=== PATIENT | female | born 1970 | race Caucasian/White ===

== ENCOUNTER → 2019-04-20 | Outpatient (CLI) | payer MEDICARE, MEDICAID, SELFPAY | PROVIDERS: Family Provider Internal Medicine; Visit Provider Internal Medicine Hematology & Oncology | DX: D75.1 Secondary polycythemia (principal) | CPT/HCPCS: 85025; J7050 ==

== ENCOUNTER → 2019-04-20 | Outpatient (CLI) | payer SELFPAY | PROVIDERS: Family Provider Internal Medicine; Visit Provider Internal Medicine | DX: E06.9 Thyroiditis, unspecified (principal); E04.2 Nontoxic multinodular goiter | CPT/HCPCS: 76536 ==

== ENCOUNTER 2019-05-04 12:02 | Outpatient (CLI) | payer MEDICARE, MEDICAID, SELFPAY ==
[2019-05-04 12:44] LABS: Basophils # 0.1 10^3/uL (0.0-0.1); Basophils % 0.5 %; Eosinophils # 0.6 10^3/uL (0.0-0.8); Eosinophils % 5.9 %; Hematocrit 43.6 % (37.0-47.0); Hemoglobin 13.6 g/dL (11.5-15.3); Lymphocytes % 32.3 %; Mean Corpuscular HGB Conc 31.2 g/dL (30.0-36.0); Mean Corpuscular Hemoglobin 26.5 pg (28.0-34.0); Mean Platelet Volume 9.8 fL (7.4-10.4); Monocytes # 0.6 10^3/uL (0.2-0.9); Monocytes % 6.7 %; Neutrophils # 5.1 10^3/uL (1.8-7.7); Neutrophils % 54.3 %; Nucleated Red Blood Cells % 0 %; Platelet Count 322 10^3/cmm (130-400); Red Blood Count 5.13 10^6/uL (4.1-5.3); Red Cell Distribution Width 12.7 % (12.1-15.1); White Blood Count 9.3 10^3/uL (4.0-10.0)
--- NOTE | 2019-05-05 16:02 | ONC FU_ITS ---
Dr. Wooten follow up note Patient: Emmanuelle Stanford Unit #: [id number]: 1970 Dicatated By: Colton Wooten M.D.Date of Visit:May 04, 2019 Onc Med Follow-up/Prog Note History of Present Illness: Mrs. Emmanuelle Stanford, 48-year-old female with history of emphysema diagnosed 5 years ago, sleep apnea on CPAP machine, heavy smoker about a pack a day for the last 30 years referred to hematology clinic for evaluation of elevated hemoglobin/hematocrit. As per patient this is a first-time she was told about high red blood cells, her labs from 11/22/2016 showed white blood count 6.6 hemoglobin 17.1 crit 48.1 normal being 34-46.6 then from 04/05/2017 white blood count 9.6 hemoglobin 16.7 hematocrit 47.1 platelets 262,000. Her repeat labs on 04/26/2017 showed white blood count 8 hemoglobin 18.2 crit 46.1 platelets 415,000 with a normal differential. recently dx with coronary artery disease underwent stent placement Now on Plavix and aspirin. Patient said she has cut done her smoking significantly and also using CPAP machine diligently. spirometry done on09/24/2018 was a normal study Now has a new CPAP machine any using it regularly as per patient but still smoke about pack a day.Tolerating phlebotomy well. came for follow-up, Denies any specific complaints, no nausea vomiting, no fever or chills, no blurry or double vision, tolerating phlebotomies well except with generalized weakness and fatigue for day or 2. Still smoking but has cut done some. And using CPAP machine on a regular basis Medications: Acetaminophen 3 Tablet (of 500 mg) Capsule Oral t.i.d. PRN, Aspirin 1 (325 mg) Tablet Oral daily, Clopidogrel Bisulfate 1 Tablet (of 75 mg) Oral daily, Cyclobenzaprine HCl 1 Tablet (of 10 mg) Oral t.i.d., Enalapril Maleate 1 Tablet (of 5 mg) Oral daily, HumaLOG 15 Units (of 100 Units/mL) Subcutaneous t.i.d. PRN, Ibuprofen 3 - 4 Capsule (of 200 mg) Oral PRN, Isosorbide Mononitrate ER 1 Tablet (of 30 mg) Tablet SR 24 HR Oral daily, Jardiance 1 Tablet (of 10 mg) Oral daily, Lipitor 1 Tablet (of 20 mg) Oral daily, Lyrica 1 Capsule (of 100 mg) Oral t.i.d. PRN, Nitroglycerin 1 Tablet (of 0.4 mg) Tablet, sublingual Sublingual PRN, OxyCODONE HCl 1 Tablet (of 10 mg) Oral t.i.d., Tresiba FlexTouch 1 (56 Units) Subcutaneous at bedtime, Victoza 1 (1.8 mg) Subcutaneous daily Allergies: adhesive tape, Morphine Sulfate, and skin glue. Review of Systems: Constitutional - Energy level is slightly better. Appetite is fair and weight is stable. No fever, hot flashes, or night sweats, ENMT - No sinus congestion/drainage. No mouth sores. No sore throat. No difficulty swallowing, Hematologic/Lymphatic - No abnormal bruising. Patient notices bleeding in gums occasionally, Respiratory - No shortness of breath. Chronic cough. No pleuritic pain or hemoptysis, Cardiovascular - No angina pain. No palpitations, Gastrointestinal - Frequent nausea, no vomiting. Frequent heartburn. No acid reflux. Occasional diarrhea and constipation. No blood in the stool or black stools, Genitourinary (F) - No dysuria or hematuria. No urinary frequency. No urgency or incontinence, Musculoskeletal - Patient has chronic joint and bone pain, Neurologic - No headache or dizziness. Patient states she has diabetic neuropathy and experiences numbness/paresthesias in hands and feet. No other focal neurologic symptoms, Psychiatric - No anxiety or depression. Pt reports that she is sleeping better now. Vital Signs: Performed on May 04, 2019 14:39 Height - 64.00 in Weight - 212 lbs (HIGH) BSA - 2.01 sq.m BMI - 36.39 (HIGH) Temperature - 98.2 F (LOW) Pulse - 100 /min Respiration - 20 /min BP - 119/59 mm(hg) O2 Sat - 96 % Pain - 4 Performance Status: 1 - No physically strenuous activity, but ambulatory and able to carry out light or sedentary work (e.g. office work, light house work). (ECOG) Physical Examination: ENMT - No oral exudates, ulcers, masses, thrush or mucositis. Oropharynx clear. Tongue normal, Respiratory - Lungs are clear to auscultation without rhonchi or wheezing, Cardiovascular - Regular rate and rhythm of heart, Abdomen - Non-tender, non-distended, Good bowel sounds. No guarding or rebound tenderness. No pulsatile masses, Extremities - no edema. Lab/Imaging: Test performed on May 04, 2019 12:17 WBC 9.3 10 3/uL RBC 5.13 10^12/L HGB 13.6 g/dL HCT 43.6 % MCV 85.0 fL MCH 26.5 pg MCHC 31.2 g/dL Platelet Count 322 10^9/L RDW 12.7 % MPV 9.8 fL Lymphocytes 3.0 10^9/L Neutrophils 0.1 10 3/uL Monocytes 0.6 10^9/L Eosinophils 0.6 10^9/L Basophils 0.1 10^9/L Neutrophil % 5.9 % Manual Lymphocytes 32.3 % Manual Monocytes 6.7 % Manual Eosinophils 5.9 % Manual Basophils 0.5 % Blasts 0.0 % Test performed on Apr 20, 2019 12:51 Lymphocyte % 30.7 % Monocyte % 5.0 % Eosinophil % 1.2 % Basophils % 0.5 % Impression: Polycythemia of uncertain etiology secondary versus primary most likely secondary to hypoxia due to chronic smoking/emphysema/sleep apnea, although patient use CPAP machine so it could be noncompliance or inappropriate CPAP setting. Or she will have primary polycythemia vera but less likely. JAK2 mutation checked on 05/08/2018 was not detected and erythropoietin level was 4 CALR mutation and MPL mutation was checked on 07/14/2018 was not detected Chronic/heavy smoker 1 pack per day for the last 30 years Emphysema Sleep apnea on CPAP machine Pulse oximetry done on 05/01/2017 showed cumulative minute of PO2 less than 88% were 3.2 minutes and she did not qualify for Medicaid coverage as a requirement is more than 5 minutes but she did have 37 events of desaturation and about 6 events per hour Left-sided neck/shoulder pain MRI scan C-spine done on 07/15/2017 showed posterior disc bulging at C4/C5 and especially C5 and 6 associated with mild anterior surface spinal cord impingement. Because of progressive symptom including headaches and heaviness and progressive secondary polycythemia e.g. for hemoglobin 17.5 g and hematocrit 50, she was started on phlebotomy with 500 mL on 01/01/2019 and goal is to get hematocrit close to 45 Plan: Discussed with patient regarding her labs white blood count 9.3 hemoglobin 13.6 crit 43.6 platelets 322,000 Clinically, patient is doing well, now tolerating phlebotomies well her follow-up lab shows hematocrit below 45, this point we'll hold her phlebotomies and she will return to clinic in one month with CBC and patient was encouraged to use her new CPAP machine on a regular basis and also quit smoking and was offered any assistance she may need. Signed By: Colton Wooten M.D. <<Signature on File>>
== END 2019-05-04 12:03 | disposition home or self-care (01) ==
LOC: ONCMED 12:07
PROVIDERS: Family Provider Internal Medicine; PCP Internal Medicine; Visit Provider Internal Medicine Hematology & Oncology
DX: D75.1 Secondary polycythemia (principal); J43.9 Emphysema, unspecified; G47.33 Obstructive sleep apnea (adult) (pediatric); F17.210 Nicotine dependence, cigarettes, uncomplicated; I25.10 Atherosclerotic heart disease of native coronary artery without angina pectoris; M50.221 Other cervical disc displacement at C4-C5 level; Z79.02 Long term (current) use of antithrombotics/antiplatelets; Z79.82 Long term (current) use of aspirin; Z79.891 Long term (current) use of opiate analgesic; Z95.5 Presence of coronary angioplasty implant and graft
CPT/HCPCS: 36415; 85025; G0463

== ENCOUNTER 2019-06-04 13:21 | Outpatient (CLI) | payer MEDICARE, MEDICAID, SELFPAY ==
[2019-06-04 14:07] LABS: Basophils # 0.1 10^3/uL (0.0-0.1); Basophils % 0.6 %; Eosinophils % 0.3 %; Hematocrit 47.7 % (37.0-47.0); Lymphocytes # 2.8 10^3/uL (0.8-4.8); Mean Corpuscular HGB Conc 31.4 g/dL (30.0-36.0); Mean Corpuscular Hemoglobin 26.8 pg (28.0-34.0); Mean Corpuscular Volume 85.3 fL (81-99); Mean Platelet Volume 9.9 fL (7.4-10.4); Monocytes # 0.6 10^3/uL (0.2-0.9); Neutrophils # 6.2 10^3/uL (1.8-7.7); Neutrophils % 63.8 %; Nucleated Red Blood Cells % 0 %; Platelet Count 304 10^3/cmm (130-400); Red Blood Count 5.59 10^6/uL (4.1-5.3); Red Cell Distribution Width 14.3 % (12.1-15.1); White Blood Count 9.7 10^3/uL (4.0-10.0)
--- NOTE | 2019-06-04 15:23 | ONC FU_ITS ---
Dr. Wooten follow up note Patient: Emmanuelle Stanford Unit #: [id number]: [id number] Dicatated By: Colton Wooten M.D.Date of Visit:Jun 04, 2019 Onc Med Follow-up/Prog Note History of Present Illness: Mrs. Emmanuelle Stanford, 48-year-old female with history of emphysema diagnosed 5 years ago, sleep apnea on CPAP machine, heavy smoker about a pack a day for the last 30 years referred to hematology clinic for evaluation of elevated hemoglobin/hematocrit. As per patient this is a first-time she was told about high red blood cells, her labs from 11/22/2016 showed white blood count 6.6 hemoglobin 17.1 crit 48.1 normal being 34-46.6 then from 04/05/2017 white blood count 9.6 hemoglobin 16.7 hematocrit 47.1 platelets 262,000. Her repeat labs on 04/26/2017 showed white blood count 8 hemoglobin 18.2 crit 46.1 platelets 415,000 with a normal differential. recently dx with coronary artery disease underwent stent placement Now on Plavix and aspirin. Patient said she has cut done her smoking significantly and also using CPAP machine diligently. spirometry done on09/24/2018 was a normal study Now has a new CPAP machine any using it regularly as per patient but still smoke about pack a day.Tolerating phlebotomy well.Patient quit smoking on 05/05/2019. Came for follow-up, denies any specific complaints, no fever or chills, no nausea or vomiting, no headaches, her cough is also improving since she quit smoking month ago. Tolerating phlebotomies on as-needed basis well. Medications: Acetaminophen 3 Tablet (of 500 mg) Capsule Oral t.i.d. PRN, Aspirin 1 (325 mg) Tablet Oral daily, Clopidogrel Bisulfate 1 Tablet (of 75 mg) Oral daily, Cyclobenzaprine HCl 1 Tablet (of 10 mg) Oral t.i.d., Enalapril Maleate 1 Tablet (of 5 mg) Oral daily, HumaLOG 15 Units (of 100 Units/mL) Subcutaneous t.i.d. PRN, Ibuprofen 3 - 4 Capsule (of 200 mg) Oral PRN, Isosorbide Mononitrate ER 1 Tablet (of 30 mg) Tablet SR 24 HR Oral daily, Jardiance 1 Tablet (of 10 mg) Oral daily, Lipitor 1 Tablet (of 20 mg) Oral daily, Lyrica 1 Capsule (of 100 mg) Oral t.i.d. PRN, Nitroglycerin 1 Tablet (of 0.4 mg) Tablet, sublingual Sublingual PRN, OxyCODONE HCl 1 Tablet (of 10 mg) Oral t.i.d., Tresiba FlexTouch 1 (56 Units) Subcutaneous at bedtime, Victoza 1 (1.8 mg) Subcutaneous daily Allergies: adhesive tape, Morphine Sulfate, and skin glue. Review of Systems: Constitutional - Energy level is slightly better. Appetite is fair and weight is stable. No fever, hot flashes, or night sweats, ENMT - No sinus congestion/drainage. No mouth sores. No sore throat. No difficulty swallowing, Hematologic/Lymphatic - No abnormal bruising. Patient notices bleeding in gums occasionally, Respiratory - No shortness of breath. Chronic cough. No pleuritic pain or hemoptysis, Cardiovascular - No angina pain. No palpitations, Gastrointestinal - Frequent nausea, no vomiting. Frequent heartburn. No acid reflux. Occasional diarrhea and constipation. No blood in the stool or black stools, Genitourinary (F) - No dysuria or hematuria. No urinary frequency. No urgency or incontinence, Musculoskeletal - Patient has chronic joint and bone pain, Neurologic - No headache or dizziness. Patient states she has diabetic neuropathy and experiences numbness/paresthesias in hands and feet. No other focal neurologic symptoms, Psychiatric - No anxiety or depression. Pt reports that she is sleeping better now. Vital Signs: Performed on Jun 04, 2019 14:58 Height - 64.00 in Weight - 211.2 lbs (LOW) BSA - 2.00 sq.m BMI - 36.25 (HIGH) Temperature - 98.7 F Pulse - 111 /min (HIGH) Respiration - 24 /min BP - 121/83 mm(hg) O2 Sat - 96 % Pain - 4 Performance Status: 0 - Fully active, able to carry on all predisease activities without restrictions. (ECOG) Physical Examination: ENMT - No oral exudates, ulcers, masses, thrush or mucositis. Oropharynx clear. Tongue normal, Respiratory - Lungs are clear to auscultation without rhonchi or wheezing, Cardiovascular - Regular rate and rhythm of heart, Abdomen - Non-tender, non-distended, no masses, Good bowel sounds. No guarding or rebound tenderness. No pulsatile masses, Extremities - no edema. Lab/Imaging: Test performed on Jun 04, 2019 13:40 WBC 9.7 10 3/uL RBC 5.59 10 6/uL HGB 15.0 g/dL HCT 47.7 % MCV 85.3 fL MCH 26.8 pg MCHC 31.4 g/dL RDW 14.3 % Platelet Count 304 10 3/cmm MPV 9.9 fL Neutrophils 6.2 10 3/uL Lymphocytes 2.8 10 3/uL Monocytes 0.6 10 3/uL Eosinophils 0.0 10 3/uL Basophils 0.1 10 3/uL Neutrophil % 63.8 % Lymphocyte % 29.0 % Monocyte % 6.0 % Eosinophil % 0.3 % Basophils % 0.6 % Test performed on May 04, 2019 12:17 Manual Lymphocytes 32.3 % Manual Monocytes 6.7 % Manual Eosinophils 5.9 % Manual Basophils 0.5 % Blasts 0.0 % Impression: Polycythemia of uncertain etiology secondary versus primary most likely secondary to hypoxia due to chronic smoking/emphysema/sleep apnea, although patient use CPAP machine so it could be noncompliance or inappropriate CPAP setting. Or she will have primary polycythemia vera but less likely. JAK2 mutation checked on 05/08/2018 was not detected and erythropoietin level was 4 CALR mutation and MPL mutation was checked on 07/14/2018 was not detected Chronic/heavy smoker 1 pack per day for the last 30 years Emphysema Sleep apnea on CPAP machine Pulse oximetry done on 05/01/2017 showed cumulative minute of PO2 less than 88% were 3.2 minutes and she did not qualify for Medicaid coverage as a requirement is more than 5 minutes but she did have 37 events of desaturation and about 6 events per hour Left-sided neck/shoulder pain MRI scan C-spine done on 07/15/2017 showed posterior disc bulging at C4/C5 and especially C5 and 6 associated with mild anterior surface spinal cord impingement. Because of progressive symptom including headaches and heaviness and progressive secondary polycythemia e.g. for hemoglobin 17.5 g and hematocrit 50, she was started on phlebotomy with 500 mL on 01/01/2019 and goal is to get hematocrit close to 45 Plan: Discussed with patient regarding her labs white blood count 9.7 hemoglobin 15 crit 47.7, platelets 304,000 Clinically, patient doing well with no new signs symptoms are follow-up lab shows hematocrit gone up to 47.7 compared to 42.6 on 05/04/2019. Patient said she quit smoking month ago and feeling much better. She was encouraged and congratulated. And was offered any assistance she may need. At this point we'll proceed with phlebotomy with a 500 mL blood drawn and 250 mL normal saline continue biweekly to keep hematocrit equal to or less than 45. Return to clinic in one month with CBC. Signed By: Colton Wooten M.D. <<Signature on File>>
== END 2019-06-04 13:22 | disposition home or self-care (01) ==
LOC: ONCMED 13:24
PROVIDERS: Family Provider Internal Medicine; PCP Internal Medicine; Visit Provider Internal Medicine Hematology & Oncology
DX: D75.1 Secondary polycythemia (principal); J43.9 Emphysema, unspecified; G47.33 Obstructive sleep apnea (adult) (pediatric); I25.10 Atherosclerotic heart disease of native coronary artery without angina pectoris; M25.512 Pain in left shoulder; M50.221 Other cervical disc displacement at C4-C5 level; Z95.5 Presence of coronary angioplasty implant and graft; Z79.02 Long term (current) use of antithrombotics/antiplatelets; Z79.82 Long term (current) use of aspirin; Z87.891 Personal history of nicotine dependence; Z79.891 Long term (current) use of opiate analgesic
CPT/HCPCS: 85025; 99195; G0463

== ENCOUNTER → 2019-06-18 09:31 | Outpatient (BNVA) | payer MEDICARE, MEDICAID, SELFPAY | PROVIDERS: Family Provider Internal Medicine; PCP Internal Medicine; Visit Provider Nurse Practitioner | DX: G89.29 Other chronic pain (principal); M54.2 Cervicalgia; M54.9 Dorsalgia, unspecified; Z79.891 Long term (current) use of opiate analgesic | CPT/HCPCS: 99213; 99214 ==

== ENCOUNTER 2019-06-18 12:57 | Outpatient (CLI) | payer MEDICARE, MEDICAID, SELFPAY ==
[2019-06-18 13:27] LABS: Basophils # 0.1 10^3/uL (0.0-0.1); Basophils % 0.7 %; Eosinophils # 0.6 10^3/uL (0.0-0.8); Eosinophils % 5.7 %; Hematocrit 44.4 % (37.0-47.0); Hemoglobin 13.8 g/dL (11.5-15.3); Lymphocytes # 2.6 10^3/uL (0.8-4.8); Lymphocytes % 25.6 %; Mean Corpuscular HGB Conc 31.1 g/dL (30.0-36.0); Mean Corpuscular Hemoglobin 25.5 pg (28.0-34.0); Mean Corpuscular Volume 82.1 fL (81-99); Mean Platelet Volume 9.6 fL (7.4-10.4); Monocytes # 0.6 10^3/uL (0.2-0.9); Monocytes % 5.8 %; Neutrophils # 6.2 10^3/uL (1.8-7.7); Neutrophils % 61.8 %; Nucleated Red Blood Cells % 0 %; Platelet Count 298 10^3/cmm (130-400); Red Blood Count 5.41 10^6/uL (4.1-5.3); Red Cell Distribution Width 14.7 % (12.1-15.1)
== END 2019-06-18 12:58 | disposition home or self-care (01) ==
LOC: ONCMED 13:02
PROVIDERS: Family Provider Internal Medicine; PCP Internal Medicine; Visit Provider Internal Medicine Hematology & Oncology
DX: D75.1 Secondary polycythemia (principal)
CPT/HCPCS: 36415; 85025

== ENCOUNTER 2019-07-02 08:39 | Outpatient (CLI) | payer MEDICARE, MEDICAID, SELFPAY ==
[2019-07-02 09:18] LABS: Basophils # 0.1 10^3/uL (0.0-0.1); Basophils % 0.8 %; Eosinophils # 0.1 10^3/uL (0.0-0.8); Eosinophils % 1.6 %; Hematocrit 40.9 % (37.0-47.0); Hemoglobin 12.7 g/dL (11.5-15.3); Lymphocytes # 2.7 10^3/uL (0.8-4.8); Lymphocytes % 43.9 %; Mean Corpuscular HGB Conc 31.1 g/dL (30.0-36.0); Mean Corpuscular Hemoglobin 26.5 pg (28.0-34.0); Mean Corpuscular Volume 85.2 fL (81-99); Mean Platelet Volume 9.5 fL (7.4-10.4); Monocytes # 0.4 10^3/uL (0.2-0.9); Monocytes % 6.9 %; Neutrophils # 2.9 10^3/uL (1.8-7.7); Neutrophils % 46.6 %; Nucleated Red Blood Cells % 0 %; Platelet Count 345 10^3/cmm (130-400); Red Cell Distribution Width 14.6 % (12.1-15.1); White Blood Count 6.2 10^3/uL (4.0-10.0)
--- NOTE | 2019-07-02 16:24 | ONC FU_ITS ---
Dr. Wooten follow up note Patient: Emmanuelle Stanford Unit #: [id number]: [id number] Dicatated By: Colton Wooten M.D.Date of Visit:Jul 02, 2019 Onc Med Follow-up/Prog Note History of Present Illness: Mrs. Emmanuelle Stanford, 48-year-old female with history of emphysema diagnosed 5 years ago, sleep apnea on CPAP machine, heavy smoker about a pack a day for the last 30 years referred to hematology clinic for evaluation of elevated hemoglobin/hematocrit. As per patient this is a first-time she was told about high red blood cells, her labs from 11/22/2016 showed white blood count 6.6 hemoglobin 17.1 crit 48.1 normal being 34-46.6 then from 04/05/2017 white blood count 9.6 hemoglobin 16.7 hematocrit 47.1 platelets 262,000. Her repeat labs on 04/26/2017 showed white blood count 8 hemoglobin 18.2 crit 46.1 platelets 415,000 with a normal differential. recently dx with coronary artery disease underwent stent placement Now on Plavix and aspirin. Patient said she has cut done her smoking significantly and also using CPAP machine diligently. spirometry done on09/24/2018 was a normal study Now has a new CPAP machine any using it regularly as per patient but still smoke about pack a day.Tolerating phlebotomy well.Patient quit smoking on 05/05/2019. Came for follow-up, denies any specific complaints, no fever or chills, no nausea vomiting, no headaches, patient is using CPAP regularly and also not smoking anymore since April 2019. Medications: Acetaminophen 3 Tablet (of 500 mg) Capsule Oral t.i.d. PRN, Aspirin 1 (325 mg) Tablet Oral daily, Clopidogrel Bisulfate 1 Tablet (of 75 mg) Oral daily, Cyclobenzaprine HCl 1 Tablet (of 10 mg) Oral t.i.d., Enalapril Maleate 1 Tablet (of 5 mg) Oral daily, HumaLOG 15 Units (of 100 Units/mL) Subcutaneous t.i.d. PRN, Ibuprofen 3 - 4 Capsule (of 200 mg) Oral PRN, Isosorbide Mononitrate ER 1 Tablet (of 30 mg) Tablet SR 24 HR Oral daily, Jardiance 1 Tablet (of 10 mg) Oral daily, Lipitor 1 Tablet (of 20 mg) Oral daily, Lyrica 1 Capsule (of 100 mg) Oral t.i.d. PRN, Nitroglycerin 1 Tablet (of 0.4 mg) Tablet, sublingual Sublingual PRN, OxyCODONE HCl 1 Tablet (of 10 mg) Oral t.i.d., Tresiba FlexTouch 1 (56 Units) Subcutaneous at bedtime, Victoza 1 (1.8 mg) Subcutaneous daily Allergies: adhesive tape, Morphine Sulfate, and skin glue. Review of Systems: Constitutional - Energy level is slightly better. Appetite is fair and weight is stable. No fever, hot flashes, or night sweats, ENMT - No sinus congestion/drainage. No mouth sores. No sore throat. No difficulty swallowing, Hematologic/Lymphatic - No abnormal bruising. Patient notices bleeding in gums occasionally, Respiratory - No shortness of breath. Chronic cough. No pleuritic pain or hemoptysis, Cardiovascular - No angina pain. No palpitations, Gastrointestinal - No nausea, no vomiting. Frequent heartburn. No acid reflux. Occasional diarrhea and constipation. No blood in the stool or black stools, Genitourinary (F) - No dysuria or hematuria. No urinary frequency. No urgency or incontinence, Musculoskeletal - Patient has chronic joint and bone pain, Neurologic - No headache or dizziness. Patient states she has diabetic neuropathy and experiences numbness/paresthesias in hands and feet. No other focal neurologic symptoms, Psychiatric - No anxiety or depression. Vital Signs: Performed on Jul 02, 2019 10:37 Height - 64.00 in Weight - 214.6 lbs (HIGH) BSA - 2.02 sq.m BMI - 36.84 (HIGH) Temperature - 98.4 F Pulse - 90 /min Respiration - 22 /min BP - 107/67 mm(hg) O2 Sat - 98 % Pain - 7 Performance Status: 0 - Fully active, able to carry on all predisease activities without restrictions. (ECOG) Physical Examination: ENMT - No oral exudates, ulcers, masses, thrush or mucositis. Oropharynx clear. Tongue normal, Respiratory - Lungs are clear to auscultation without rhonchi or wheezing, Cardiovascular - Regular rate and rhythm of heart, Abdomen - Non-tender, non-distended, Good bowel sounds. No guarding or rebound tenderness. No pulsatile masses, Extremities - no edema. Lab/Imaging: Test performed on Jun 18, 2019 13:17 WBC 10.0 10 3/uL RBC 5.41 10 6/uL HGB 13.8 g/dL HCT 44.4 % MCV 82.1 fL MCH 25.5 pg MCHC 31.1 g/dL RDW 14.7 % Platelet Count 298 10 3/cmm MPV 9.6 fL Neutrophils 6.2 10 3/uL Lymphocytes 2.6 10 3/uL Monocytes 0.6 10 3/uL Eosinophils 0.6 10 3/uL Basophils 0.1 10 3/uL Neutrophil % 61.8 % Lymphocyte % 25.6 % Monocyte % 5.8 % Eosinophil % 5.7 % Basophils % 0.7 % Test performed on May 04, 2019 12:17 Manual Lymphocytes 32.3 % Manual Monocytes 6.7 % Manual Eosinophils 5.9 % Manual Basophils 0.5 % Blasts 0.0 % Impression: Polycythemia of uncertain etiology secondary versus primary most likely secondary to hypoxia due to chronic smoking/emphysema/sleep apnea, although patient use CPAP machine so it could be noncompliance or inappropriate CPAP setting. Or she will have primary polycythemia vera but less likely. JAK2 mutation checked on 05/08/2018 was not detected and erythropoietin level was 4 CALR mutation and MPL mutation was checked on 07/14/2018 was not detected Chronic/heavy smoker 1 pack per day for the last 30 years Emphysema Sleep apnea on CPAP machine Pulse oximetry done on 05/01/2017 showed cumulative minute of PO2 less than 88% were 3.2 minutes and she did not qualify for Medicaid coverage as a requirement is more than 5 minutes but she did have 37 events of desaturation and about 6 events per hour Left-sided neck/shoulder pain MRI scan C-spine done on 07/15/2017 showed posterior disc bulging at C4/C5 and especially C5 and 6 associated with mild anterior surface spinal cord impingement. Because of progressive symptom including headaches and heaviness and progressive secondary polycythemia e.g. for hemoglobin 17.5 g and hematocrit 50, she was started on phlebotomy with 500 mL on 01/01/2019 and goal is to get hematocrit close to 45 Plan: Discussed with patient regarding her labs white blood count 6.2 hemoglobin 12.7 crit 40.9 platelets 345,000 Clinically, patient is doing well, now using her CPAP as recommended and not smoking and her follow-up shows hemoglobin/hematocrit in desirable range. We'll continue to monitor and she will return to clinic in one month with CBC if hematocrits stay below 45 then will see her in 2-3 months. Signed By: Colton Wooten M.D. <<Signature on File>>
== END 2019-07-02 08:40 | disposition home or self-care (01) ==
LOC: ONCMED 08:41
PROVIDERS: Family Provider Internal Medicine; PCP Internal Medicine; Visit Provider Internal Medicine Hematology & Oncology
DX: D75.1 Secondary polycythemia (principal); J43.9 Emphysema, unspecified; G47.33 Obstructive sleep apnea (adult) (pediatric); I25.10 Atherosclerotic heart disease of native coronary artery without angina pectoris; Z79.02 Long term (current) use of antithrombotics/antiplatelets; Z79.82 Long term (current) use of aspirin; Z79.891 Long term (current) use of opiate analgesic; Z95.5 Presence of coronary angioplasty implant and graft; Z87.891 Personal history of nicotine dependence
CPT/HCPCS: 85025; 99214

== ENCOUNTER 2019-08-06 12:07 | Outpatient (CLI) | payer MEDICARE, MEDICAID, SELFPAY ==
[2019-08-06 12:07] LABS: Basophils # 0.1 10^3/uL (0.0-0.1); Basophils % 0.8 %; Eosinophils % 0.4 %; Hematocrit 43.4 % (37.0-47.0); Hemoglobin 13.6 g/dL (11.5-15.3); Lymphocytes # 2.7 10^3/uL (0.8-4.8); Lymphocytes % 31.9 %; Mean Corpuscular HGB Conc 31.3 g/dL (30.0-36.0); Mean Corpuscular Hemoglobin 26.3 pg (28.0-34.0); Mean Corpuscular Volume 83.9 fL (81-99); Mean Platelet Volume 9.8 fL (7.4-10.4); Monocytes # 0.6 10^3/uL (0.2-0.9); Monocytes % 6.7 %; Neutrophils % 59.7 %; Nucleated Red Blood Cells % 0 %; Platelet Count 271 10^3/cmm (130-400); Red Blood Count 5.17 10^6/uL (4.1-5.3); Red Cell Distribution Width 15.2 % (12.1-15.1); White Blood Count 8.3 10^3/uL (4.0-10.0)
--- NOTE | 2019-08-06 14:08 | ONC FU_ITS ---
Dr. Wooten follow up note Patient: Emmanuelle Stanford Unit #: [id number]: 1970 Dicatated By: Colton Wooten M.D.Date of Visit:Aug 06, 2019 Onc Med Follow-up/Prog Note History of Present Illness: Mrs. Emmanuelle Stanford, 48-year-old female with history of emphysema diagnosed 5 years ago, sleep apnea on CPAP machine, heavy smoker about a pack a day for the last 30 years referred to hematology clinic for evaluation of elevated hemoglobin/hematocrit. As per patient this is a first-time she was told about high red blood cells, her labs from 11/22/2016 showed white blood count 6.6 hemoglobin 17.1 crit 48.1 normal being 34-46.6 then from 04/05/2017 white blood count 9.6 hemoglobin 16.7 hematocrit 47.1 platelets 262,000. Her repeat labs on 04/26/2017 showed white blood count 8 hemoglobin 18.2 crit 46.1 platelets 415,000 with a normal differential. recently dx with coronary artery disease underwent stent placement Now on Plavix and aspirin. Patient said she has cut done her smoking significantly and also using CPAP machine diligently. spirometry done on09/24/2018 was a normal study Now has a new CPAP machine any using it regularly as per patient but still smoke about pack a day.Tolerating phlebotomy well.Patient quit smoking on 05/05/2019. Came for follow-up, denies any specific complaints, no fever or chills, no nausea or vomiting, no diarrhea constipation Medications: Acetaminophen 3 Tablet (of 500 mg) Capsule Oral t.i.d. PRN, Aspirin 1 (325 mg) Tablet Oral daily, CeleBREX 1 Capsule (of 200 mg) Oral b.i.d., Clopidogrel Bisulfate 1 Tablet (of 75 mg) Oral daily, Cyclobenzaprine HCl 1 Tablet (of 10 mg) Oral t.i.d., Enalapril Maleate 1 Tablet (of 5 mg) Oral daily, HumaLOG 15 Units (of 100 Units/mL) Subcutaneous t.i.d. PRN, Ibuprofen 3 - 4 Capsule (of 200 mg) Oral PRN, Isosorbide Mononitrate ER 1 Tablet (of 30 mg) Tablet SR 24 HR Oral daily, Jardiance 1 Tablet (of 10 mg) Oral daily, Lipitor 1 Tablet (of 20 mg) Oral daily, Lyrica 1 Capsule (of 100 mg) Oral t.i.d. PRN, Nitroglycerin 1 Tablet (of 0.4 mg) Tablet, sublingual Sublingual PRN, OxyCODONE HCl 1 Tablet (of 10 mg) Oral t.i.d., Tresiba FlexTouch 1 (56 Units) Subcutaneous at bedtime, Victoza 1 (1.8 mg) Subcutaneous daily Allergies: adhesive tape, Morphine Sulfate, and skin glue. Review of Systems: Review of Systems is not available for this patient. Vital Signs: Performed on Aug 06, 2019 13:30 Height - 64.00 in Weight - 214.8 lbs (HIGH) BSA - 2.02 sq.m BMI - 36.87 (HIGH) Temperature - 96.2 F (LOW) Pulse - 83 /min Respiration - 17 /min BP - 129/68 mm(hg) O2 Sat - 97 % Pain - 6 Performance Status: 0 - Fully active, able to carry on all predisease activities without restrictions. (ECOG) Physical Examination: ENMT - no mouth sores, Respiratory - clear, Cardiovascular - Regular rate and rhythm, Abdomen - nontender, Extremities - no edema or rash. Lab/Imaging: Test performed on Jul 02, 2019 08:55 WBC 6.2 10 3/uL RBC 4.80 10 6/uL HGB 12.7 g/dL HCT 40.9 % MCV 85.2 fL MCH 26.5 pg MCHC 31.1 g/dL RDW 14.6 % Platelet Count 345 10 3/cmm MPV 9.5 fL Neutrophils 2.9 10 3/uL Lymphocytes 2.7 10 3/uL Monocytes 0.4 10 3/uL Eosinophils 0.1 10 3/uL Basophils 0.1 10 3/uL Neutrophil % 46.6 % Lymphocyte % 43.9 % Monocyte % 6.9 % Eosinophil % 1.6 % Basophils % 0.8 % Test performed on May 04, 2019 12:17 Manual Lymphocytes 32.3 % Manual Monocytes 6.7 % Manual Eosinophils 5.9 % Manual Basophils 0.5 % Blasts 0.0 % Impression: Polycythemia of uncertain etiology secondary versus primary most likely secondary to hypoxia due to chronic smoking/emphysema/sleep apnea, although patient use CPAP machine so it could be noncompliance or inappropriate CPAP setting. Or she will have primary polycythemia vera but less likely. JAK2 mutation checked on 05/08/2018 was not detected and erythropoietin level was 4 CALR mutation and MPL mutation was checked on 07/14/2018 was not detected Chronic/heavy smoker 1 pack per day for the last 30 years Emphysema Sleep apnea on CPAP machine Pulse oximetry done on 05/01/2017 showed cumulative minute of PO2 less than 88% were 3.2 minutes and she did not qualify for Medicaid coverage as a requirement is more than 5 minutes but she did have 37 events of desaturation and about 6 events per hour Left-sided neck/shoulder pain MRI scan C-spine done on 07/15/2017 showed posterior disc bulging at C4/C5 and especially C5 and 6 associated with mild anterior surface spinal cord impingement. Because of progressive symptom including headaches and heaviness and progressive secondary polycythemia e.g. for hemoglobin 17.5 g and hematocrit 50, she was started on phlebotomy with 500 mL on 01/01/2019 and goal is to get hematocrit close to 45 Plan: Discussed with patient regarding her labs white blood count 8.3 hemoglobin 13.6 crit 43.4 platelets 271,000 Clinically, patient is doing well, no new signs symptoms. Her follow-up CBC shows hemoglobin/hematocrit in desirable range, we'll continue to monitor and she will return to clinic in 6 weeks with CBC patient was encouraged to continue to use CPAP as advised and complimented for not smoking anymore Signed By: Colton Wooten M.D. <<Signature on File>>
== END 2019-08-06 12:08 | disposition home or self-care (01) ==
LOC: ONCMED 12:08
PROVIDERS: Family Provider Internal Medicine; PCP Internal Medicine; Visit Provider Internal Medicine Hematology & Oncology
DX: D75.1 Secondary polycythemia (principal); F17.210 Nicotine dependence, cigarettes, uncomplicated; J43.9 Emphysema, unspecified; G47.30 Sleep apnea, unspecified; Z99.89 Dependence on other enabling machines and devices
CPT/HCPCS: 36415; 85025; G0463

== ENCOUNTER 2019-09-16 12:50 | Outpatient (CLI) | payer MEDICARE, MEDICAID, SELFPAY ==
[2019-09-16 16:14] LABS: Basophils # 0.1 10^3/uL (0.0-0.1); Basophils % 0.6 %; Eosinophils % 0.1 %; Hematocrit 47.1 % (37.0-47.0); Hemoglobin 14.7 g/dL (11.5-15.3); Lymphocytes # 2.5 10^3/uL (0.8-4.8); Lymphocytes % 28.6 %; Mean Corpuscular HGB Conc 31.2 g/dL (30.0-36.0); Mean Corpuscular Hemoglobin 26.4 pg (28.0-34.0); Mean Corpuscular Volume 84.7 fL (81-99); Mean Platelet Volume 10.1 fL (7.4-10.4); Monocytes # 0.6 10^3/uL (0.2-0.9); Monocytes % 6.9 %; Neutrophils # 5.5 10^3/uL (1.8-7.7); Neutrophils % 63.7 %; Nucleated Red Blood Cells % 0 %; Platelet Count 272 10^3/cmm (130-400); Red Blood Count 5.56 10^6/uL (4.1-5.3); Red Cell Distribution Width 14.3 % (12.1-15.1); White Blood Count 8.6 10^3/uL (4.0-10.0)
== END 2019-09-16 12:51 | disposition home or self-care (01) ==
LOC: ONCMED 16:49
PROVIDERS: PCP Internal Medicine; Visit Provider Internal Medicine Hematology & Oncology
DX: D75.1 Secondary polycythemia (principal)
CPT/HCPCS: 85025

== ENCOUNTER 2019-09-17 06:59 | Outpatient (CLI) | payer MEDICARE, MEDICAID, SELFPAY ==
--- NOTE | 2019-09-18 13:37 | ONC FU_ITS ---
Dr. Wooten follow up note Patient: Emmanuelle Stanford Unit #: [id number]: 1970 Dicatated By: Colton Wooten M.D.Date of Visit:September 17, 2019 Onc Med Follow-up/Prog Note History of Present Illness: Mrs. Emmanuelle Stanford, 48-year-old female with history of emphysema diagnosed 5 years ago, sleep apnea on CPAP machine, heavy smoker about a pack a day for the last 30 years referred to hematology clinic for evaluation of elevated hemoglobin/hematocrit. As per patient this is a first-time she was told about high red blood cells, her labs from 11/22/2016 showed white blood count 6.6 hemoglobin 17.1 crit 48.1 normal being 34-46.6 then from 04/05/2017 white blood count 9.6 hemoglobin 16.7 hematocrit 47.1 platelets 262,000. Her repeat labs on 04/26/2017 showed white blood count 8 hemoglobin 18.2 crit 46.1 platelets 415,000 with a normal differential. recently dx with coronary artery disease underwent stent placement Now on Plavix and aspirin. Patient said she has cut done her smoking significantly and also using CPAP machine diligently. spirometry done on09/24/2018 was a normal study Now has a new CPAP machine any using it regularly as per patient but still smoke about pack a day.Tolerating phlebotomy well.Patient quit smoking on 05/05/2019. Evaluated via telephone, patient denies any specific complaints, no fever or chills, no nausea or vomiting, no diarrhea constipation, no headaches or blurred vision or double vision patient still not smoking and using her CPAP machine diligently. Medications: Acetaminophen 3 Tablet (of 500 mg) Capsule Oral t.i.d. PRN, Aspirin 1 (325 mg) Tablet Oral daily, CeleBREX 1 Capsule (of 200 mg) Oral b.i.d., Clopidogrel Bisulfate 1 Tablet (of 75 mg) Oral daily, Cyclobenzaprine HCl 1 Tablet (of 10 mg) Oral t.i.d., Enalapril Maleate 1 Tablet (of 5 mg) Oral daily, HumaLOG 15 Units (of 100 Units/mL) Subcutaneous t.i.d. PRN, Ibuprofen 3 - 4 Capsule (of 200 mg) Oral PRN, Isosorbide Mononitrate ER 1 Tablet (of 30 mg) Tablet SR 24 HR Oral daily, Jardiance 1 Tablet (of 10 mg) Oral daily, Lipitor 1 Tablet (of 20 mg) Oral daily, Lyrica 1 Capsule (of 100 mg) Oral t.i.d. PRN, Nitroglycerin 1 Tablet (of 0.4 mg) Tablet, sublingual Sublingual PRN, OxyCODONE HCl 1 Tablet (of 10 mg) Oral t.i.d., Tresiba FlexTouch 1 (56 Units) Subcutaneous at bedtime, Victoza 1 (1.8 mg) Subcutaneous daily Allergies: adhesive tape, Morphine Sulfate, and skin glue. Review of Systems: Review of Systems is not available for this patient. Vital Signs: Vitals are not available for this patient. Performance Status: 1 - No physically strenuous activity, but ambulatory and able to carry out light or sedentary work (e.g. office work, light house work). (ECOG) Physical Examination: ENMT - patient denies any mouth sore, Respiratory - denies any shortness of breath or wheezing, Cardiovascular - denies any palpitation, Abdomen - denies any abdominal pain or fullness, Extremities - denies any lower extremity edema. Lab/Imaging: Test performed on September 16, 2019 12:50 WBC 8.6 10 3/uL RBC 5.56 10 6/uL HGB 14.7 g/dL HCT 47.1 % MCV 84.7 fL MCH 26.4 pg MCHC 31.2 g/dL RDW 14.3 % Platelet Count 272 10 3/cmm MPV 10.1 fL Neutrophils 5.5 10 3/uL Lymphocytes 2.5 10 3/uL Monocytes 0.6 10 3/uL Eosinophils 0.0 10 3/uL Basophils 0.1 10 3/uL Neutrophil % 63.7 % Lymphocyte % 28.6 % Monocyte % 6.9 % Eosinophil % 0.1 % Basophils % 0.6 % Test performed on May 04, 2019 12:17 Manual Lymphocytes 32.3 % Manual Monocytes 6.7 % Manual Eosinophils 5.9 % Manual Basophils 0.5 % Blasts 0.0 % Impression: Polycythemia of uncertain etiology secondary versus primary most likely secondary to hypoxia due to chronic smoking/emphysema/sleep apnea, although patient use CPAP machine so it could be noncompliance or inappropriate CPAP setting. Or she will have primary polycythemia vera but less likely. JAK2 mutation checked on 05/08/2018 was not detected and erythropoietin level was 4 CALR mutation and MPL mutation was checked on 07/14/2018 was not detected Chronic/heavy smoker 1 pack per day for the last 30 years Emphysema Sleep apnea on CPAP machine Pulse oximetry done on 05/01/2017 showed cumulative minute of PO2 less than 88% were 3.2 minutes and she did not qualify for Medicaid coverage as a requirement is more than 5 minutes but she did have 37 events of desaturation and about 6 events per hour Left-sided neck/shoulder pain MRI scan C-spine done on 07/15/2017 showed posterior disc bulging at C4/C5 and especially C5 and 6 associated with mild anterior surface spinal cord impingement. Because of progressive symptom including headaches and heaviness and progressive secondary polycythemia e.g. for hemoglobin 17.5 g and hematocrit 50, she was started on phlebotomy with 500 mL on 01/01/2019 and goal is to get hematocrit close to 45 Plan: Discussed with patient regarding her labs white blood count 8.6 and globin 14.7 hematocrit 47.1 platelets 207 2000 Clinically, patient doing reasonably well with no new signs symptom, follow-up lab shows hematocrit gone up to 47.1, this point we'll consider phlebotomy ???1 now and then repeat her CBC in one month and consider phlebotomy on as-needed basis to keep her hematocrit equal to or below 45 patient was encouraged to use CPAP machine diligently and complimented for not smoking. Signed By: Colton Wooten M.D. <<Signature on File>>
== END 2019-09-17 07:00 | disposition home or self-care (01) ==
LOC: ONCMED 07:01
PROVIDERS: PCP Internal Medicine; Visit Provider Internal Medicine Hematology & Oncology
DX: D75.1 Secondary polycythemia (principal); R51 Headache; F17.210 Nicotine dependence, cigarettes, uncomplicated; J43.9 Emphysema, unspecified; G47.30 Sleep apnea, unspecified; Z99.89 Dependence on other enabling machines and devices

== ENCOUNTER 2019-09-18 10:04 | Outpatient (CLI) | payer MEDICARE, MEDICAID, SELFPAY ==
[2019-09-18] MEDS: sodium chloride 0.9% 250 ML 999 ML IV (10:51)
== END 2019-09-18 10:05 | disposition home or self-care (01) ==
LOC: ONCMED 10:10
PROVIDERS: PCP Internal Medicine; Visit Provider Internal Medicine Hematology & Oncology
DX: D75.1 Secondary polycythemia (principal); E78.5 Hyperlipidemia, unspecified; I10 Essential (primary) hypertension; I25.10 Atherosclerotic heart disease of native coronary artery without angina pectoris; E11.42 Type 2 diabetes mellitus with diabetic polyneuropathy; G47.33 Obstructive sleep apnea (adult) (pediatric); J44.9 Chronic obstructive pulmonary disease, unspecified
CPT/HCPCS: 99195; J7050

== ENCOUNTER 2019-09-18 10:12 | Outpatient (CLI) | payer MEDICARE, MEDICAID, SELFPAY ==
[2019-09-18 11:33] LABS: Thyroid Stimulating Hormone 1.63 uIU/mL (0.27-4.20)
[2019-09-18 12:03] LABS: Erythrocyte Sedimentation Rate 8 mm/hr (0-15)
[2019-09-18 12:05] LABS: Vitamin B12 333 pg/mL (232-1245)
== END 2019-09-18 10:13 | disposition home or self-care (01) ==
PROVIDERS: PCP Internal Medicine; Visit Provider Nurse Practitioner Family
DX: Z01.89 Encounter for other specified special examinations
CPT/HCPCS: 82607; 84443; 85651

== ENCOUNTER 2019-09-29 07:49 | Outpatient (CLI) | payer MEDICARE, MEDICAID, SELFPAY ==
--- NOTE | 2019-09-29 07:55 | MR_ITS ---
WS: [id number] MRI CERVICAL SPINE HISTORY: MUSCLE weakness, numbness HAND/FEET;LT peripheral NEUROPATHY COMPARISON: 07/15/2017 Very slight increase in the lumbar lordosis. Posterior alignment is normal. Mild disc desiccation at C5-6. No fracture or marrow edema. Signal within the cervical cord is normal. Visualized posterior fossa is unremarkable. Craniocervical junction, C1 and C2 relationship, odontoid process and soft tissues are normal. C2-C3: Normal. C3-C4: Normal. C4-C5: Central disc protrusion with near contact on the cord. Small RIGHT foraminal osteophytes. Very mild RIGHT foraminal and central stenosis. C5-C6: Mild annular disc bulging with a central disc protrusion and fissure. Mild central and bilater al foraminal stenosis. C6-C7: Very mild annular disc bulge. C7-T1: Small RIGHT foraminal osteophytes with mild stenosis. Mild central disc bulging at T2-3 and T3-4. Mild disc contact on the ventral thoracic cord. Similar t o the prior study. MR/MR cervical spin wo con* [id number] IMPRESSION: 1. No severe stenosis. 2. Central disc protrusion with fissure and mild cord contact at C5-6. Slight progression since the prior study. Mild bilateral foraminal narrowing at C5-6 a lso. 3. There is mild narrowing of the central canal from the C4-C7 disc levels. Du e to mild degenerative changes but also congenitally small thecal sac. 4. Stable mild disc bulging at T2-3 and T3-4. 5. Mild RIGHT foraminal stenosis at C4-5 and C7-T1.
== END 2019-09-29 07:50 | disposition home or self-care (01) ==
LOC: RADSHAW 07:54
PROVIDERS: PCP Internal Medicine; Visit Provider Nurse Practitioner Family
DX: M62.81 Muscle weakness (generalized) (principal); R20.0 Anesthesia of skin; E11.59 Type 2 diabetes mellitus with other circulatory complications; G62.9 Polyneuropathy, unspecified; M50.222 Other cervical disc displacement at C5-C6 level; M48.02 Spinal stenosis, cervical region
CPT/HCPCS: 72141

== ENCOUNTER 2019-10-06 15:04 | Outpatient (CLI) | payer MEDICARE, MEDICAID, SELFPAY ==
--- NOTE | 2019-10-06 15:11 | XR_ITS ---
WS: [id number] Lateral views of cervical spine in the flexion, extension and neutral positions. 10/06/2019 Clinical Data: Neck pain Comparison: Cervical spine, 07/10/2018. Findings: The disc spaces are normal. There is minimal calcification of the anterior longitudinal ligament at C 6-C7. There is no prevertebral soft tissue swelling. No compression fractures are noted. No limitatio n of motion or subluxation occurs on flexion or extension. XR/XR cervical spine fl/ex [id number] Impression: Negative for limitation motion or or subluxation on flexion or extension.
== END 2019-10-06 15:05 | disposition home or self-care (01) ==
LOC: RADWPI 15:09
PROVIDERS: Family Provider Internal Medicine; PCP Internal Medicine; Visit Provider Licensed Practical Nurse
DX: M54.2 Cervicalgia (principal)
CPT/HCPCS: 72040

== ENCOUNTER → 2019-10-09 12:36 | Outpatient (BNVA) | payer MEDICARE, MEDICAID, SELFPAY | PROVIDERS: Family Provider Internal Medicine; PCP Internal Medicine; Visit Provider Nurse Practitioner | DX: G89.29 Other chronic pain (principal); M50.020 Cervical disc disorder with myelopathy, mid-cervical region, unspecified level; M54.41 Lumbago with sciatica, right side; M54.42 Lumbago with sciatica, left side; M54.9 Dorsalgia, unspecified; Z79.891 Long term (current) use of opiate analgesic | CPT/HCPCS: 99213; 99214 ==

== ENCOUNTER → 2019-10-10 14:29 | Outpatient (BNVA) | payer MEDICARE, MEDICAID, SELFPAY | PROVIDERS: Family Provider Internal Medicine; PCP Internal Medicine; Visit Provider Nurse Practitioner | DX: J04.0 Acute laryngitis (principal); J44.9 Chronic obstructive pulmonary disease, unspecified; F17.211 Nicotine dependence, cigarettes, in remission | CPT/HCPCS: 87400 ==

== ENCOUNTER 2019-11-02 12:20 | Outpatient (RCR) | payer MEDICARE, MEDICAID, SELFPAY | END 2019-11-20 23:59 | disposition home or self-care (01) | LOC: SPT 12:20 | PROVIDERS: PCP Internal Medicine; Referring Provider Licensed Practical Nurse; Visit Provider Licensed Practical Nurse | DX: M54.2 Cervicalgia (principal) | CPT/HCPCS: 97110; 97161 ==

== ENCOUNTER → 2019-11-05 13:53 | Outpatient (BNVA) | payer MEDICARE, MEDICAID, SELFPAY | PROVIDERS: Family Provider Internal Medicine; PCP Internal Medicine; Visit Provider Nurse Practitioner | DX: M50.020 Cervical disc disorder with myelopathy, mid-cervical region, unspecified level (principal); M54.42 Lumbago with sciatica, left side; M54.41 Lumbago with sciatica, right side; Z79.891 Long term (current) use of opiate analgesic | CPT/HCPCS: 99213; 99214 ==

== ENCOUNTER 2019-11-06 07:14 | Outpatient (CLI) | payer MEDICARE, MEDICAID, SELFPAY ==
--- NOTE | 2019-11-06 07:22 | MM_ITS ---
WS: [id number] Bilateral screening digital mammogram, 11/06/2019 Clinical Data: SCREENING Comparison: 10/10/2018, 09/25/2017, 09/03/2016, 08/24/2015, 08/12/2014, 08/11/2013, 07/04/2012, 05/17/2011, 04/26. Findings: The breast parenchymal pattern shows fat replacement. No spiculated masses or clustered calcification s are seen. There are no secondary signs of carcinoma. MM/[place] [id number] Impression: 1. Negative bilateral mammogram unchanged. 2. Recommend annual screening mammograms. BIRADS: 1-Negative FOLLOW UP: 1 Year Follow-up The CAD parimutuel ticket checker was used.
== END 2019-11-06 07:15 | disposition home or self-care (01) ==
LOC: RADSHAW 07:18
PROVIDERS: PCP Internal Medicine; Visit Provider Internal Medicine
DX: Z12.31 Encounter for screening mammogram for malignant neoplasm of breast (principal)
CPT/HCPCS: 77067

== ENCOUNTER 2019-11-16 10:41 | Outpatient (CLI) | payer MEDICARE, MEDICAID, SELFPAY ==
[2019-11-16 11:33] LABS: Basophils # 0.1 10^3/uL (0.0-0.1); Basophils % 0.7 %; Eosinophils # 0.2 10^3/uL (0.0-0.8); Eosinophils % 2.9 %; Hematocrit 45.2 % (37.0-47.0); Hemoglobin 14.3 g/dL (11.5-15.3); Lymphocytes # 2.6 10^3/uL (0.8-4.8); Lymphocytes % 35.8 %; Mean Corpuscular HGB Conc 31.6 g/dL (30.0-36.0); Mean Corpuscular Hemoglobin 27.9 pg (28.0-34.0); Mean Corpuscular Volume 88.3 fL (81-99); Mean Platelet Volume 10.1 fL (7.4-10.4); Monocytes # 0.4 10^3/uL (0.2-0.9); Monocytes % 6.1 %; Neutrophils # 3.94 10^3/uL (1.8-7.7); Neutrophils % 54.4 %; Nucleated Red Blood Cells % 0 %; Platelet Count 228 10^3/cmm (130-400); Red Blood Count 5.12 10^6/uL (4.1-5.3); Red Cell Distribution Width 13.7 % (12.1-15.1); White Blood Count 7.2 10^3/uL (4.0-10.0)
--- NOTE | 2019-11-16 13:32 | ONC FU_ITS ---
Dr. Wooten follow up note Patient: Emmanuelle Stanford Unit #: [id number]: [id number] Dicatated By: Colton Wooten M.D.Date of Visit:Nov 16, 2019 Onc Med Follow-up/Prog Note History of Present Illness: Mrs. Emmanuelle Stanford, 49 -year-old female with history of emphysema diagnosed 5 years ago, sleep apnea on CPAP machine, heavy smoker about a pack a day for the last 30 years referred to hematology clinic for evaluation of elevated hemoglobin/hematocrit. As per patient this is a first-time she was told about high red blood cells, her labs from 11/22/2016 showed white blood count 6.6 hemoglobin 17.1 crit 48.1 normal being 34-46.6 then from 04/05/2017 white blood count 9.6 hemoglobin 16.7 hematocrit 47.1 platelets 262,000. Her repeat labs on 04/26/2017 showed white blood count 8 hemoglobin 18.2 crit 46.1 platelets 415,000 with a normal differential. recently dx with coronary artery disease underwent stent placement Now on Plavix and aspirin. Patient said she has cut done her smoking significantly and also using CPAP machine diligently. spirometry done on09/24/2018 was a normal study Now has a new CPAP machine any using it regularly as per patient but still smoke about pack a day.Tolerating phlebotomy well.Patient quit smoking on 05/05/2019. Came for follow-up, denies any specific complaint except generalized weakness and fatigue but no nausea or vomiting no diarrhea or constipation no headaches blurred vision or double vision. No palpitation. Patient still not smoking has been 7 months now but using CPAP machine as recommended by PMD Medications: Acetaminophen 3 Tablet (of 500 mg) Capsule Oral t.i.d. PRN, Aspirin 1 (325 mg) Tablet Oral daily, CeleBREX 1 Capsule (of 200 mg) Oral b.i.d., Clopidogrel Bisulfate 1 Tablet (of 75 mg) Oral daily, Cyclobenzaprine HCl 1 Tablet (of 10 mg) Oral t.i.d., Enalapril Maleate 1 Tablet (of 5 mg) Oral daily, HumaLOG 15 Units (of 100 Units/mL) Subcutaneous t.i.d. PRN, Ibuprofen 3 - 4 Capsule (of 200 mg) Oral PRN, Isosorbide Mononitrate ER 1 Tablet (of 30 mg) Tablet SR 24 HR Oral daily, Jardiance 1 Tablet (of 10 mg) Oral daily, Lipitor 1 Tablet (of 20 mg) Oral daily, Lyrica 1 Capsule (of 100 mg) Oral t.i.d. PRN, Nitroglycerin 1 Tablet (of 0.4 mg) Tablet, sublingual Sublingual PRN, OxyCODONE HCl 1 Tablet (of 10 mg) Oral t.i.d., Tresiba FlexTouch 1 (56 Units) Subcutaneous at bedtime, Victoza 1 (1.8 mg) Subcutaneous daily Allergies: adhesive tape, Morphine Sulfate, and skin glue. Review of Systems: Review of Systems is not available for this patient. Vital Signs: Performed on Nov 16, 2019 13:09 Height - 64.00 in Weight - 213.0 lbs (LOW) BSA - 2.01 sq.m BMI - 36.56 (HIGH) Temperature - 98.6 F Pulse - 94 /min Respiration - 20 /min BP - 118/76 mm(hg) O2 Sat - 98 % Pain - 6 Performance Status: 1 - No physically strenuous activity, but ambulatory and able to carry out light or sedentary work (e.g. office work, light house work). (ECOG) Physical Examination: ENMT - No mouth sores, no thrush, no jaundice, Respiratory - Lungs are clear, Cardiovascular - Regular rate and rhythm of heart, Abdomen - Soft, bowel sounds present, Extremities - No visible edema. Lab/Imaging: Test performed on September 16, 2019 12:50 WBC 8.6 10 3/uL RBC 5.56 10 6/uL HGB 14.7 g/dL HCT 47.1 % MCV 84.7 fL MCH 26.4 pg MCHC 31.2 g/dL RDW 14.3 % Platelet Count 272 10 3/cmm MPV 10.1 fL Neutrophils 5.5 10 3/uL Lymphocytes 2.5 10 3/uL Monocytes 0.6 10 3/uL Eosinophils 0.0 10 3/uL Basophils 0.1 10 3/uL Neutrophil % 63.7 % Lymphocyte % 28.6 % Monocyte % 6.9 % Eosinophil % 0.1 % Basophils % 0.6 % Impression: Polycythemia of uncertain etiology secondary versus primary most likely secondary to hypoxia due to chronic smoking/emphysema/sleep apnea, although patient use CPAP machine so it could be noncompliance or inappropriate CPAP setting. Or she will have primary polycythemia vera but less likely. JAK2 mutation checked on 05/08/2018 was not detected and erythropoietin level was 4 CALR mutation and MPL mutation was checked on 07/14/2018 was not detected Chronic/heavy smoker 1 pack per day for the last 30 years Emphysema Sleep apnea on CPAP machine Pulse oximetry done on 05/01/2017 showed cumulative minute of PO2 less than 88% were 3.2 minutes and she did not qualify for Medicaid coverage as a requirement is more than 5 minutes but she did have 37 events of desaturation and about 6 events per hour Left-sided neck/shoulder pain MRI scan C-spine done on 07/15/2017 showed posterior disc bulging at C4/C5 and especially C5 and 6 associated with mild anterior surface spinal cord impingement. Because of progressive symptom including headaches and heaviness and progressive secondary polycythemia e.g. for hemoglobin 17.5 g and hematocrit 50, she was started on phlebotomy with 500 mL on 01/01/2019 and goal is to get hematocrit close to 45 Plan: Discussed with patient regarding her labs white blood count 7.2 hemoglobin 14.3 g hematocrit 45.2 platelets 228,000 Clinically, patient is doing reasonably well, with no new signs symptoms, her follow-up CBC shows hemoglobin/hematocrit within desirable range, as patient has secondary polycythemia e.g. Conor 2 mutation negative, guidelines for phlebotomy were discussed and reviewed again, patient has no history of thromboembolic phenomena so in that case we will monitor her and consider phlebotomy if hematocrit is above 55 unless she is symptomatic. Return to clinic in 2 months with CBC Signed By: Colton Wooten M.D. <<Signature on File>>
== END 2019-11-16 10:42 | disposition home or self-care (01) ==
LOC: ONCMED 10:46
PROVIDERS: PCP Internal Medicine; Visit Provider Internal Medicine Hematology & Oncology
DX: D75.1 Secondary polycythemia (principal); F17.210 Nicotine dependence, cigarettes, uncomplicated; J43.9 Emphysema, unspecified; G47.33 Obstructive sleep apnea (adult) (pediatric); I25.10 Atherosclerotic heart disease of native coronary artery without angina pectoris; R51 Headache; Z95.5 Presence of coronary angioplasty implant and graft; Z99.89 Dependence on other enabling machines and devices; Z79.02 Long term (current) use of antithrombotics/antiplatelets; Z79.82 Long term (current) use of aspirin
CPT/HCPCS: 85025; G0463

== ENCOUNTER 2019-11-27 08:42 | Outpatient (CLI) | payer MEDICARE, MEDICAID, SELFPAY ==
--- NOTE | 2019-11-27 08:54 | CT_ITS ---
WS: [id number] CT CHEST TECHNIQUE: Contrast enhanced CT of the chest with coronal and sagittal reformatted images. CLINICAL INFORMATION: COUGH COMPARISON: None. DLP: 1011.[address] scans at [facility] use at least one of these dose optimization techniques: automat ed exposure control; mA and/or kV adjustment per patient size (includes targeted exams where dose is matched to clinical indication); or iterative reconstruction. FINDINGS: Lungs are well aerated. No acute pulmonary infiltrates. No suspicious pulmonary parenchymal abnormali ties. Normal caliber thoracic aorta. No mediastinal or hilar lymphadenopathy. No axillary lymphadenop athy. Thyroid gland is normal. Adrenal glands are normal. Normal GE junction. Hypertrophic changes mid thor acic spine with moderate central canal stenosis worse at T6-T7, T7-T8, and T9-T10 with protruding ost eophytes. CT/CT chest w con* [id number] IMPRESSION: 1. Both lungs are well aerated. No acute pulmonary infiltrates. 2. No mediastinal or hilar lymphadenopathy. 3. Other findings as described above.
[2019-11-27] MEDS: iohexol 300 mg/mL 100 mL Btl IV (09:13)
== END 2019-11-27 08:43 | disposition home or self-care (01) ==
LOC: RADWPI 08:47
PROVIDERS: PCP Internal Medicine; Visit Provider Internal Medicine
DX: R05 Cough (principal)
CPT/HCPCS: 71260; Q9967

== ENCOUNTER 2019-12-01 09:34 | Outpatient (CLI) | payer MEDICARE, MEDICAID, SELFPAY ==
--- NOTE | 2019-12-01 10:15 | CT_ITS ---
WS: [id number] CT CERVICAL SPINE HISTORY: Neck pain TECHNIQUE: Contiguous 2.5 mm axial imaging performed through the entire cervical spine. Sagittal and coronal reformats also performed. All CT scans at [facility] use at least one of these do se optimization techniques: automated exposure control; mA and/or kV adjustment per patient size (inc ludes targeted exams where dose is matched to clinical indication); or iterative reconstruction. DLP: 2067.89 mGycm COMPARISON: MRI 09/29/2019 Normal cervical alignment. Craniocervical junction, atlantodental interval and C1-C2 alignment is nor mal. C2-C3: Normal. C3-C4: Normal. C4-C5: Small central disc protrusion with slight contact upon the ventral thecal sac. Mild RIGHT fora catalina narrowing due to osteophyte disease. C5-C6: Diffuse osteophytic ridging, greatest just to the LEFT of midline. Osteophyte contact on the v entral thecal sac. Mild central and bilateral foraminal stenosis, RIGHT greater than LEFT. C6-C7: Diffuse osteophytic ridging. Mild encroachment upon the ventral thecal sac without stenosis. C7-T1: Mild osteophytic ridging. No significant stenosis. Soft tissues are normal. Lung apices are clear. CT/CT cervical spin wo con* [id number] IMPRESSION: 1. No significant central or foraminal stenosis. 2. Small central disc protrusion at C4-5 with contact on the ventral thecal sa c and mild RIGHT foraminal stenosis. 3. Mild central and bilateral foraminal stenosis, RIGHT greater than LEFT at C 5-6. 4. Minimal osteophyte encroachment upon the ventral thecal sac at C6-7.
== END 2019-12-01 09:35 | disposition home or self-care (01) ==
LOC: RADWPI 09:37
PROVIDERS: Family Provider Internal Medicine; PCP Internal Medicine; Visit Provider Licensed Practical Nurse
DX: M50.222 Other cervical disc displacement at C5-C6 level (principal); M25.78 Osteophyte, vertebrae
CPT/HCPCS: 72125

== ENCOUNTER → 2019-12-08 13:28 | Outpatient (BNVA) | payer MEDICARE, MEDICAID, SELFPAY | PROVIDERS: Family Provider Internal Medicine; PCP Internal Medicine; Visit Provider Licensed Practical Nurse | DX: M50.020 Cervical disc disorder with myelopathy, mid-cervical region, unspecified level (principal); M48.02 Spinal stenosis, cervical region; G56.03 Carpal tunnel syndrome, bilateral upper limbs | CPT/HCPCS: 99213 ==

== ENCOUNTER 2019-12-10 15:36 | Outpatient (CLI) | payer MEDICARE, MEDICAID, SELFPAY ==
--- NOTE | 2019-12-10 16:23 | MR_ITS ---
WS: [id number] EXAM: MR thoracic spin wo con* [id number] DATE OF EXAMINATION: 12/10/2019, 1657 hours COMPARISON: Thoracic spine plain films from 07/10/[address] of the chest from 11/27/2019 HISTORY: 49 years old with pain in the mid back loses feeling in the arms and legs. TECHNIQUE: Sagittal T1, T2, T2 inversion recovery; axial T2 FINDINGS: Thoracic vertebral bodies are of normal height and marrow signal characteristics. There is a congenit ally narrowed canal. No abnormal inflammatory changes are seen on inversion recovery sequencing. The cord is draped over the kyphotic curve of the spine. Degenerative spondylosis changes are seen diffus moise throughout the spine. Extensive posterior osteophyte formation T6-7 with a concomitant disc herni ation at this level with mass effect upon the cord causing mild spinal canal stenosis. Degenerative p olyposis changes considered fairly severe T7-8 and to a lesser degree at the T8-9 level. Disc with di sc herniation T8-9 level. The canal is narrowed without stenosis at this level. No abnormal signal in the cord is seen. There appears to be ossification along the posterior longitudinal ligament T6-7 th rough T9-10. No paraspinal soft tissue inflammatory changes are noted. 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 Considered fairly severe m id thoracic spine. Disc herniations T6-7 and T8-9 levels. Calcification posteri or longitudinal ligament at these levels. At the T6-7 level the posterior spurr ing and disc herniation causing mild spinal canal stenosis with slight mass eff ect upon the cord. No abnormal signal the cord. No other level of central canal stenosis.
== END 2019-12-10 15:37 | disposition home or self-care (01) ==
LOC: RADSHAW 15:43
PROVIDERS: PCP Internal Medicine; Visit Provider Internal Medicine
DX: M48.04 Spinal stenosis, thoracic region (principal); M51.24 Other intervertebral disc displacement, thoracic region
CPT/HCPCS: 72146

== ENCOUNTER → 2019-12-22 09:01 | Outpatient (BNVA) | payer MEDICARE, MEDICAID, SELFPAY | PROVIDERS: PCP Internal Medicine; Visit Provider Internal Medicine | DX: Z11.59 Encounter for screening for other viral diseases (principal) | CPT/HCPCS: 87635 ==

== ENCOUNTER → 2019-12-23 07:54 | Outpatient (BNVA) | payer MEDICARE, MEDICAID, SELFPAY | PROVIDERS: PCP Internal Medicine; Referring Provider Nurse Practitioner Family; Visit Provider Specialist | DX: M79.7 Fibromyalgia (principal); M40.204 Unspecified kyphosis, thoracic region; E66.01 Morbid (severe) obesity due to excess calories; Z68.38 Body mass index [BMI] 38.0-38.9, adult; E11.40 Type 2 diabetes mellitus with diabetic neuropathy, unspecified; Z79.4 Long term (current) use of insulin; Z87.891 Personal history of nicotine dependence | CPT/HCPCS: 99215 ==

== ENCOUNTER 2019-12-24 06:47 | Day surgery (SDC) | payer MEDICARE, MEDICAID, SELFPAY ==
[2019-12-23 12:57] VITALS: BMI 39.1
[2019-12-24 07:19] LABS: Glucose Point of Care 184 mg/dL (70-110)
[2019-12-24 07:20] VITALS: BP 132/85; PULSE 88; RESP 18; TEMP 36.6; O2SAT 96
[2019-12-24] MEDS: sodium chloride 0.9% 1,000 ML 30 ML IV (07:24)
--- NOTE | 2019-12-24 07:39 | ANES.PREANE2 ---
Pre-Anesthetic Assessment Pre-Anesthetic Assessment: Height/Weight: Height 1.57 m Weight 97.069 kg Temp Pulse Resp BP Pulse Ox 97.9 F 88 18 132/85 96 12/24/19 07:20 12/24/19 07:20 12/24/19 07:20 12/24/19 07:20 12/24/19 07:20 Preop Diagnosis: Left carpal tunnel Proposed Procedure: Operation Date: 12/24/19 08:15 Proposed Procedures p Carpal Tunnel Release [id number] G56.03(Left) - Timbo Redd MD Familial anesthetic complications: none Was Beta Ann taken within 24 hours: N/A Last intake: Intake Last Liquid Date 12/23/19 Last Liquid Time 22:00 Last Solid Date 12/23/19 Last Solid Time 07:27 Social: Social History: No alcohol and No tobacco Exam: Pre-Anes Outpt Exam: alert, oriented x 3, clear to auscultation bilaterally and regular rate & rhythm Airway: Cervical ROM: WNL MP: 3 Dentition: False and Partials Pulmonary: Pulmonary: COPD and Sleep apnea (cpap) CV/HEM: CV/HEM: CAD (2 stents - 2016, 2018 (stop plavix yesterday)) and HTN Comments: polycthemia vera : : Chronic renal Insufficiency Hepatic: Comments: fatty liver Metabolic: Metabolic: DM, Hyperlipidemia, Morbid obesity and Thyroid (goiter) Neuropsych: Neuropsych: TIA (last one 10 years ago) Anesthetic Plan: ASA status: 3 Anesthesia: MAC and Regional (specify below) Risk of > 500 ml blood loss (7ml/kg in children): No Meds/Allergies Current Medications: Current Medications Generic Name Dose Route Start Last Admin Trade Name Freq PRN Reason Stop Dose Admin Sodium Chloride 1,000 mls @ 30 ml s/hr 12/24/19 07:00 12/24/19 07:24 Sodium Chloride 0.9% IV 12/25/19 06:59 30 mls/hr .Q24H SEBASTIAN Administration PFSH Anesthesia PFSH: Medical History (Updated 12/23/19 @ 10:07 by Lacey Blank MD) ASHD (arteriosclerotic heart disease) Cervical disc disorder with myelopathy of mid-cervical region Cervical spinal stenosis Chest pain Chronic back pain CKD (chronic kidney disease) COPD (chronic obstructive pulmonary disease) Degeneration of cervical intervertebral disc Diabetes Encounter for long-term opiate analgesic use Essential hypertension Hx of fracture of finger right hand ring finger Hyperlipidemia Neck pain of over 3 months duration Obesity Opioid contract exists GUDELIA (obstructive sleep apnea) Polycythemia secondary to smoking Stenosis of cervical spine with myelopathy Tobacco abuse, in remission Quit 04/22 2019 Surgical History History of surgery on arm left arm reconstruction-hx of elbow fx and set wrong so ended up having to have surgery S/P angioplasty with stent S/P section S/P cholecystectomy S/P hernia repair S/P hysterectomy S/P lumpectomy of breast S/P tonsillectomy Family History Father Hypertension CAD (coronary artery disease) Mother Hypertension CAD (coronary artery disease) Alzheimer disease Daughter Diabetes Brother CAD (coronary artery disease) Social History Smoking and tobacco status: former smoker Alcohol intake: never Household members: spouse Marital status: Current occupational status: disabled History of recent travel: No Data Anesthesia Other Labs: Laboratory Results - last 48 hr 12/24/19 07:15 POC Glucose 184 Cardiac Studies: No Data to Display
--- NOTE | 2019-12-24 08:25 | W.PM.OPSUD ---
Surgery/Procedure H&P Update DATE OF PROCEDURE: December 24, 2019 DATE H&P PERFORMED: 12/09/19 PREOP DIAGNOSIS: Left carpal tunnel PLANNED PROCEDURE: Operation Date: 12/24/19 08:15 Proposed Procedures p Carpal Tunnel Release [id number] G56.03(Left) - Timbo Redd MD
[2019-12-24 09:23] VITALS: BP 103/84; PULSE 96; RESP 18; TEMP 36.1; O2SAT 95
--- NOTE | 2019-12-24 09:32 | P.OP_ITS ---
Operative Report Date of procedure: December 24, 2019 Pre-op Diagnosis: Left carpal tunnel Post-op diagnosis: same Post-op Findings: Same Procedure Done: Left carpal tunnel release Pathology: none sent Surgeon: Timbo Redd Anesthesia: Nerve Block ([place] block) Estimated blood loss (mL): 2 Tourniquet time (min): 24 Condition: stable Disposition: PACU Procedure: Patient was taken to the operating room and anesthesia provided by the anesthesia service. She was prepped and draped with the arm exposed. A timeout was performed. A 3 cm long incision was made in line with the fourth ray from the distal edge of the carpal tunnel extending proximally. The subcutaneous fat and palmar fascia was divided with a scalpel blade. Under loupe magnification the ulnar neurovascular bundle was identified distally. A hemostat could be passed under the transverse carpal ligament allowing the distal 25% to be divided. A slotted guide was then passed beneath the transverse carpal ligament and the middle 50% divided. Blunt scissors were then passed over the guide freeing the proximal ligament. The tourniquet was deflated. Hemostasis provided with electrocautery. Wound edges were infiltrated with 10 cc of a half percent Marcaine solution. Skin edges were reapproximated with 3-0 Prolene. Sterile dressings were applied. The patient was taken to the recovery room in stable condition
--- NOTE | 2019-12-24 09:36 | ANE.PACU2 ---
Inpatient post-anesthesia follow up: Airway intact: Yes Vital signs: Temperature 97.0 F Pulse Rate 96 Respiratory Rate 18 Blood Pressure 103/84 Pulse Oximetry 95 Oxygen Delivery Me thod Room Air Oxygen Flow Rate Fraction of Inspir ed Oxygen Hydration adequate: Yes Nausea and vomiting: No Pain level: 1 Mental status: Baseline
[2019-12-24 09:46] VITALS: BP 119/75; PULSE 91; RESP 18; O2SAT 98
== END 2019-12-24 09:53 | disposition home or self-care (01) ==
PROVIDERS: PCP Internal Medicine; Visit Provider Orthopaedic Surgery
PROC: (CPT 64721; principal; 2019-12-24 08:05)
DX: G56.03 Carpal tunnel syndrome, bilateral upper limbs (principal); J44.9 Chronic obstructive pulmonary disease, unspecified; Z99.89 Dependence on other enabling machines and devices; I25.10 Atherosclerotic heart disease of native coronary artery without angina pectoris; Z95.5 Presence of coronary angioplasty implant and graft; Z79.02 Long term (current) use of antithrombotics/antiplatelets; I12.9 Hypertensive chronic kidney disease with stage 1 through stage 4 chronic kidney disease, or unspecified chronic kidney disease; N18.9 Chronic kidney disease, unspecified; E11.22 Type 2 diabetes mellitus with diabetic chronic kidney disease; E78.5 Hyperlipidemia, unspecified; E66.01 Morbid (severe) obesity due to excess calories; Z68.39 Body mass index [BMI] 39.0-39.9, adult; Z86.73 Personal history of transient ischemic attack (TIA), and cerebral infarction without residual deficits; G47.33 Obstructive sleep apnea (adult) (pediatric); Z87.891 Personal history of nicotine dependence; Z88.5 Allergy status to narcotic agent; Z79.82 Long term (current) use of aspirin; Z79.4 Long term (current) use of insulin
CPT/HCPCS: 64721; 12345; 36416; 82962; J0690; J2704; J3010; J3490; J7030

== ENCOUNTER → 2019-12-31 13:24 | Outpatient (BNVA) | payer MEDICARE, MEDICAID, SELFPAY | PROVIDERS: Family Provider Internal Medicine; PCP Internal Medicine; Visit Provider Nurse Practitioner | DX: M50.020 Cervical disc disorder with myelopathy, mid-cervical region, unspecified level (principal); M48.02 Spinal stenosis, cervical region; M40.204 Unspecified kyphosis, thoracic region; M51.9 Unspecified thoracic, thoracolumbar and lumbosacral intervertebral disc disorder; Z79.891 Long term (current) use of opiate analgesic | CPT/HCPCS: 99214 ==

== ENCOUNTER → 2020-01-05 10:54 | Outpatient (BNVA) | payer MEDICARE, MEDICAID, SELFPAY | PROVIDERS: Family Provider Internal Medicine; PCP Internal Medicine; Visit Provider Internal Medicine | DX: Z11.59 Encounter for screening for other viral diseases (principal) | CPT/HCPCS: 87635 ==

== ENCOUNTER 2020-01-07 08:16 | Day surgery (SDC) | payer MEDICARE, MEDICAID, SELFPAY ==
[2020-01-06 11:48] VITALS: BMI 38.4
[2020-01-07 08:44] VITALS: BP 132/85; PULSE 89; RESP 18; TEMP 36.3; O2SAT 96
[2020-01-07] MEDS: sodium chloride 0.9% 1,000 ML 30 ML IV (09:05)
[2020-01-07 09:10] LABS: Glucose Point of Care 171 mg/dL (70-110)
--- NOTE | 2020-01-07 09:21 | ANES.PREANE2 ---
Pre-Anesthetic Assessment Pre-Anesthetic Assessment: Height/Weight: Height 1.57 m Weight 95.254 kg Temp Pulse Resp BP Pulse Ox 97.4 F L 89 18 132/85 96 01/07/20 08:44 01/07/20 08:44 01/07/20 08:44 01/07/20 08:44 01/07/20 08:44 Preop Diagnosis: Right carpal tunnel Proposed Procedure: Operation Date: 01/07/20 09:55 Proposed Procedures p Carpal Tunnel Release [id number] G56.01(Right) - Timbo Redd MD Familial anesthetic complications: None Was Beta Ann taken within 24 hours: Yes Last intake: Intake Last Liquid Date 01/06/20 Last Liquid Time 20:00 Last Solid Date 01/06/20 Last Solid Time 20:00 Social: Social History: No alcohol and No tobacco Exam: Pre-Anes Outpt Exam: alert, oriented x 3, clear to auscultation bilaterally and regular rate & rhythm Airway: Cervical ROM: WNL MP: 4 Dentition: False Pulmonary: Pulmonary: COPD and Sleep apnea (cpap) CV/HEM: CV/HEM: CAD (2 stents (2016, 2017)) and HTN Comments: polycthemia vera Last took plavix on : : Chronic renal Insufficiency Metabolic: Metabolic: DM, Hyperlipidemia, Morbid obesity and Thyroid (goiter) Neuropsych: Neuropsych: TIA (last one 10 years ago) Anesthetic Plan: ASA status: 3 Anesthesia: MAC Risk of > 500 ml blood loss (7ml/kg in children): No Meds/Allergies Current Medications: Current Medications Generic Name Dose Route Start Last Admin Trade Name Freq PRN Reason Stop Dose Admin Sodium Chloride 1,000 mls @ 30 ml s/hr 01/07/20 08:45 01/07/20 09:05 Sodium Chloride 0.9% IV 01/08/20 08:44 30 mls/hr .Q24H SEBASTIAN Administration PFSH Anesthesia PFSH: Medical History (Updated 01/06/20 @ 14:35 by Timbo Redd MD) ASHD (arteriosclerotic heart disease) Cervical disc disorder with myelopathy of mid-cervical region Cervical spinal stenosis Chest pain Chronic back pain CKD (chronic kidney disease) COPD (chronic obstructive pulmonary disease) Degeneration of cervical intervertebral disc Diabetes Encounter for long-term opiate analgesic use Essential hypertension Hx of fracture of finger right hand ring finger Hyperlipidemia Neck pain of over 3 months duration Obesity Opioid contract exists GUDELIA (obstructive sleep apnea) Polycythemia secondary to smoking Stenosis of cervical spine with myelopathy Tobacco abuse, in remission Quit 04/22 2019 Surgical History History of carpal tunnel surgery 12/24/19 w/Dr. Redd left wrist History of surgery on arm left arm reconstruction-hx of elbow fx and set wrong so ended up having to have surgery S/P angioplasty with stent S/P section S/P cholecystectomy S/P hernia repair S/P hysterectomy S/P lumpectomy of breast S/P tonsillectomy Family History Father Hypertension CAD (coronary artery disease) Mother Hypertension CAD (coronary artery disease) Alzheimer disease Daughter Diabetes Brother CAD (coronary artery disease) Social History Smoking and tobacco status: former smoker Alcohol intake: never Household members: spouse Marital status: Current occupational status: disabled History of recent travel: No Data Anesthesia Other Labs: Laboratory Results - last 48 hr 01/07/20 09:08 POC Glucose 171 Cardiac Studies: No Data to Display
--- NOTE | 2020-01-07 09:28 | W.PM.OPSUD ---
Surgery/Procedure H&P Update DATE OF PROCEDURE: January 07, 2020 DATE H&P PERFORMED: 12/09/19 PREOP DIAGNOSIS: Right carpal tunnel PLANNED PROCEDURE: Operation Date: 01/07/20 09:55 Proposed Procedures p Carpal Tunnel Release [id number] G56.01(Right) - Timbo Redd MD
--- NOTE | 2020-01-07 10:17 | PM.OP ---
Operative Report Date of procedure: January 07, 2020 Pre-op Diagnosis: Right carpal tunnel Post-op diagnosis: same Post-op Findings: No masses or space-occupying lesions were seen within the carpal tunnel Procedure Done: Right carpal tunnel release Pathology: none sent Surgeon: Timbo Redd Anesthesia: Nerve Block ([place] block) Estimated blood loss (mL): 5 Complications: None Findings: No masses or space-occupying lesions were seen within the carpal tunnel Condition: stable Disposition: same day Procedure: Patient was taken to the operating room and anesthesia provided by the anesthesia service. She was prepped and draped with the arm exposed. A timeout was performed. A 3 cm long incision was made in line with the fourth ray from the distal edge of the carpal tunnel extending proximally. The subcutaneous fat and palmar fascia was divided with a scalpel blade. Under loupe magnification the ulnar neurovascular bundle was identified distally. A hemostat could be passed under the transverse carpal ligament allowing the distal 25% to be divided. A slotted guide was then passed beneath the transverse carpal ligament and the middle 50% divided. Blunt scissors were then passed over the guide freeing the proximal ligament. The tourniquet was deflated. Hemostasis provided with electrocautery. Wound edges were infiltrated with 10 cc of a half percent Marcaine solution. Skin edges were reapproximated with 3-0 Prolene. Sterile dressings were applied. The patient was taken to the recovery room in stable condition
[2020-01-07 10:21] VITALS: BP 152/84; PULSE 93; RESP 18; TEMP 36.8; O2SAT 94
[2020-01-07 10:37] VITALS: BP 136/81; PULSE 82; RESP 18; O2SAT 97
--- NOTE | 2020-01-07 10:50 | ANE.PACU2 ---
Inpatient post-anesthesia follow up: Airway intact: Yes Vital signs: Temperature 98.2 F Pulse Rate 82 Respiratory Rate 18 Blood Pressure 136/81 Pulse Oximetry 97 Oxygen Delivery Me thod Room Air Oxygen Flow Rate Fraction of Inspir ed Oxygen Hydration adequate: Yes Nausea and vomiting: No Pain level: 2 Mental status: Baseline
== END 2020-01-07 10:51 | disposition home or self-care (01) ==
LOC: OR 08:19
PROVIDERS: Family Provider Internal Medicine; PCP Internal Medicine; Visit Provider Orthopaedic Surgery
PROC: (CPT 64721; principal; 2020-01-07 08:55)
DX: G56.01 Carpal tunnel syndrome, right upper limb (principal); I25.10 Atherosclerotic heart disease of native coronary artery without angina pectoris; J44.9 Chronic obstructive pulmonary disease, unspecified; I12.9 Hypertensive chronic kidney disease with stage 1 through stage 4 chronic kidney disease, or unspecified chronic kidney disease; E11.22 Type 2 diabetes mellitus with diabetic chronic kidney disease; N18.9 Chronic kidney disease, unspecified; E78.5 Hyperlipidemia, unspecified; E66.9 Obesity, unspecified; Z68.38 Body mass index [BMI] 38.0-38.9, adult; G47.33 Obstructive sleep apnea (adult) (pediatric); Z95.5 Presence of coronary angioplasty implant and graft; Z87.891 Personal history of nicotine dependence; Z79.4 Long term (current) use of insulin; Z79.82 Long term (current) use of aspirin; Z88.5 Allergy status to narcotic agent
CPT/HCPCS: 64721; 12345; 36416; 82962; J0690; J2704; J3010; J3490; J7030

== ENCOUNTER 2020-01-18 11:59 | Outpatient (CLI) | payer MEDICARE, MEDICAID, SELFPAY ==
[2020-01-18 12:35] LABS: Basophils # 0.1 10^3/uL (0.0-0.1); Basophils % 0.7 %; Eosinophils # 0.2 10^3/uL (0.0-0.8); Eosinophils % 2.5 %; Hematocrit 49.4 % (37.0-47.0); Hemoglobin 15.9 g/dL (11.5-15.3); Lymphocytes # 2.1 10^3/uL (0.8-4.8); Lymphocytes % 30.1 %; Mean Corpuscular HGB Conc 32.2 g/dL (30.0-36.0); Mean Corpuscular Hemoglobin 28.4 pg (28.0-34.0); Mean Corpuscular Volume 88.2 fL (81-99); Monocytes # 0.5 10^3/uL (0.2-0.9); Neutrophils # 4.08 10^3/uL (1.8-7.7); Neutrophils % 59.4 %; Nucleated Red Blood Cells % 0 %; Platelet Count 243 10^3/cmm (130-400); Red Cell Distribution Width 13.7 % (12.1-15.1); White Blood Count 6.9 10^3/uL (4.0-10.0)
--- NOTE | 2020-01-18 17:49 | ONC FU_ITS ---
Dr. Wooten follow up note Patient: Emmanuelle Stanford Unit #: [id number]: [id number] Dicatated By: Colton Wooten M.D.Date of Visit:Jan 18, 2020 Onc Med Follow-up/Prog Note History of Present Illness: Mrs. Emmanuelle Stanford, 49 -year-old female with history of emphysema diagnosed 5 years ago, sleep apnea on CPAP machine, heavy smoker about a pack a day for the last 30 years referred to hematology clinic for evaluation of elevated hemoglobin/hematocrit. As per patient this is a first-time she was told about high red blood cells, her labs from 11/22/2016 showed white blood count 6.6 hemoglobin 17.1 crit 48.1 normal being 34-46.6 then from 04/05/2017 white blood count 9.6 hemoglobin 16.7 hematocrit 47.1 platelets 262,000. Her repeat labs on 04/26/2017 showed white blood count 8 hemoglobin 18.2 crit 46.1 platelets 415,000 with a normal differential. recently dx with coronary artery disease underwent stent placement Now on Plavix and aspirin. Patient said she has cut done her smoking significantly and also using CPAP machine diligently. spirometry done on09/24/2018 was a normal study Now has a new CPAP machine any using it regularly as per patient but still smoke about pack a day.Tolerating phlebotomy well.Patient quit smoking on 05/05/2019. Came for follow-up, denies any specific complaints, no fever chills, no nausea or vomiting, no diarrhea constipation no headaches, no blurry or double vision, no chest pain no fullness. Medications: Acetaminophen 3 Tablet (of 500 mg) Capsule Oral t.i.d. PRN, Aspirin 1 (325 mg) Tablet Oral daily, CeleBREX 1 Capsule (of 200 mg) Oral b.i.d., Clopidogrel Bisulfate 1 Tablet (of 75 mg) Oral daily, Cyclobenzaprine HCl 1 Tablet (of 10 mg) Oral t.i.d., Enalapril Maleate 1 Tablet (of 5 mg) Oral daily, HumaLOG 15 Units (of 100 Units/mL) Subcutaneous t.i.d. PRN, Ibuprofen 3 - 4 Capsule (of 200 mg) Oral PRN, Isosorbide Mononitrate ER 1 Tablet (of 30 mg) Tablet SR 24 HR Oral daily, Jardiance 1 Tablet (of 10 mg) Oral daily, Lipitor 1 Tablet (of 20 mg) Oral daily, Lyrica 1 Capsule (of 100 mg) Oral t.i.d. PRN, Nitroglycerin 1 Tablet (of 0.4 mg) Tablet, sublingual Sublingual PRN, OxyCODONE HCl 1 Tablet (of 15 mg) Oral 5x/d, Tresiba FlexTouch 1 (56 Units) Subcutaneous at bedtime, Victoza 1 (1.8 mg) Subcutaneous daily Allergies: adhesive tape, Morphine Sulfate, and skin glue. Review of Systems: Review of Systems is not available for this patient. Vital Signs: Performed on Jan 18, 2020 13:43 Height - 64.00 in Weight - 208.6 lbs (LOW) BSA - 1.99 sq.m BMI - 35.81 (HIGH) Temperature - 98.8 F Pulse - 89 /min Respiration - 22 /min BP - 115/72 mm(hg) O2 Sat - 95 % (LOW) Pain - 5 Performance Status: 0 - Fully active, able to carry on all predisease activities without restrictions. (ECOG) Physical Examination: ENMT - No mouth sores, no thrush, no jaundice, Respiratory - Lungs are clear, Cardiovascular - Regular rate and rhythm of heart, Abdomen - Soft, bowel sounds present, Extremities - No visible edema. Lab/Imaging: Test performed on Nov 16, 2019 10:52 WBC 7.2 10 3/uL RBC 5.12 10 6/uL HGB 14.3 g/dL HCT 45.2 % MCV 88.3 fL MCH 27.9 pg MCHC 31.6 g/dL RDW 13.7 % Platelet Count 228 10 3/cmm MPV 10.1 fL Neutrophils 3.94 10 3/uL Lymphocytes 2.6 10 3/uL Monocytes 0.4 10 3/uL Eosinophils 0.2 10 3/uL Basophils 0.1 10 3/uL Neutrophil % 54.4 % Lymphocyte % 35.8 % Monocyte % 6.1 % Eosinophil % 2.9 % Basophils % 0.7 % NRBC % 0 % Impression: Polycythemia of uncertain etiology secondary versus primary most likely secondary to hypoxia due to chronic smoking/emphysema/sleep apnea, although patient use CPAP machine so it could be noncompliance or inappropriate CPAP setting. Or she will have primary polycythemia vera but less likely. JAK2 mutation checked on 05/08/2018 was not detected and erythropoietin level was 4 CALR mutation and MPL mutation was checked on 07/14/2018 was not detected Chronic/heavy smoker 1 pack per day for the last 30 years Emphysema Sleep apnea on CPAP machine Pulse oximetry done on 05/01/2017 showed cumulative minute of PO2 less than 88% were 3.2 minutes and she did not qualify for Medicaid coverage as a requirement is more than 5 minutes but she did have 37 events of desaturation and about 6 events per hour Left-sided neck/shoulder pain MRI scan C-spine done on 07/15/2017 showed posterior disc bulging at C4/C5 and especially C5 and 6 associated with mild anterior surface spinal cord impingement. Because of progressive symptom including headaches and heaviness and progressive secondary polycythemia e.g. for hemoglobin 17.5 g and hematocrit 50, she was started on phlebotomy with 500 mL on 01/01/2019 and goal is to get hematocrit close to 45 Plan: Discussed with patient regarding her labs white blood count 6.9 hemoglobin 15.9 hematocrit 49.4 platelets 243,000 Clinically, patient is doing reasonably well, as per patient she still not smoking and using his CPAP machine on a regular basis, her follow-up labs shows increasing hematocrit, patient was advised to maintain good hydration and we will continue to monitor blood counts as patient has reactive polycythemia and goal is to keep her hematocrit less than 55 unless she is symptomatic. And she will return to clinic in 2 months with CBC Signed By: Colton Wooten M.D. <<Signature on File>>
== END 2020-01-18 12:00 | disposition home or self-care (01) ==
LOC: ONCMED 12:03
PROVIDERS: PCP Internal Medicine; Visit Provider Internal Medicine Hematology & Oncology
DX: D75.1 Secondary polycythemia (principal); F17.210 Nicotine dependence, cigarettes, uncomplicated; J43.9 Emphysema, unspecified; G47.30 Sleep apnea, unspecified
CPT/HCPCS: 36415; 85025; G0463

== ENCOUNTER → 2020-01-28 12:57 | Outpatient (BNVA) | payer MEDICARE, MEDICAID, SELFPAY | PROVIDERS: PCP Internal Medicine; Visit Provider Anesthesiology | DX: G89.29 Other chronic pain (principal); M40.204 Unspecified kyphosis, thoracic region; M54.9 Dorsalgia, unspecified; M50.020 Cervical disc disorder with myelopathy, mid-cervical region, unspecified level; E11.40 Type 2 diabetes mellitus with diabetic neuropathy, unspecified; Z79.891 Long term (current) use of opiate analgesic | CPT/HCPCS: 99214 ==

== ENCOUNTER 2020-02-12 07:39 | Outpatient (CLI) | payer MEDICARE, MEDICAID, SELFPAY ==
--- NOTE | 2020-02-12 08:00 | MR_ITS ---
WS: [id number] MRI LUMBAR SPINE NONCONTRAST TECHNIQUE: Sagittal T1, T2 and STIR imaging. Axial T1 and T2 imaging. CLINICAL INFORMATION: M54.9 Dorsalgia, unspecified COMPARISON: MRI FINDINGS: Mild lumbar curve. No acute compression. No high-grade central canal stenosis. Mild disc bulging L5-S 1. L1-L2: Normal. L2-L3: No significant disc bulging. Mild facet arthropathy. Spinal canal and foramen are patent. L3-L4: Mild annular bulging. Slight effacement of ventral thecal sac. Spinal canal and foramen are pa tent. Mild to moderate facet arthropathy. L4-L5: Mild annular bulging with narrowing of the subarticular recess bilaterally. Moderate facet art hropathy. Tiny left foraminal protrusion with a tiny annular fissure. Mild left and no significant ri ght foraminal narrowing. Narrowing of the left subarticular recess with encroachment on traversing le ft L5 nerve root appears slightly progressed. L5-S1: Mild disc bulging eccentric to the right with narrowing of the right subarticular recess. Encr oachmenton the traversing S1 nerve root. Moderate right and no significant left foraminal narrowing. Mild facet arthropathy. Visualized pelvic bony structures: Normal. Paravertebral soft tissues: Normal. Small disc protrusions in the mid thoracic spine with mild central canal stenosis and contact of the thoracic cord more prominent at T6-T7, T7-8, T8-T9, and T9-T10. This is unchanged since the recent oracic spine MRI MR/MR lumbar spine wo con* [id number] IMPRESSION: 1. Small left foraminal protrusion with a tiny annular fissure. Mild left fora [place] narrowing with slight encroachment on the exiting left L4 nerve root. Thi s is unchanged since 2017. Narrowing of the left subarticular recess with encro achment traversing left L5 nerve root appears slightly progressed. 2. Right eccentric disc bulging L5-S1 with a right foraminal protrusion contac ts the exiting right L5 nerve root with moderate right foraminal narrowing. Thi s appears unchanged since 2016 3. Mild/moderate facet arthropathy L3-L5. 4. Small central protrusions in the thoracic spine appear unchanged.
== END 2020-02-12 07:40 | disposition home or self-care (01) ==
LOC: RADSHAW 07:43
PROVIDERS: PCP Internal Medicine; Visit Provider Anesthesiology
DX: M54.9 Dorsalgia, unspecified (principal); M51.24 Other intervertebral disc displacement, thoracic region; M47.816 Spondylosis without myelopathy or radiculopathy, lumbar region; M51.27 Other intervertebral disc displacement, lumbosacral region
CPT/HCPCS: 72148

== ENCOUNTER 2020-03-03 12:27 | Outpatient (CLI) | payer MEDICARE, MEDICAID, SELFPAY ==
--- NOTE | 2020-03-03 16:47 | MR_ITS ---
WS: [id number] MRI HEAD WITHOUT CONTRAST TECHNIQUE: Sagittal T1, T2 axial, T2 axial FLAIR, axial and coronal T1 images, axial susceptibility w eighted imaging, axial diffusion weighted images, and coronal T2 images were obtained. CLINICAL INFORMATION: DIZZINESS, VISION CHANGES COMPARISON: MRI FINDINGS: No evidence of restricted diffusion to suggest acute ischemia. Ventricular system and basal cisterns are patent. Mild supratentorial white matter changes unchanged since October 16, 2016. Faint T2 hyperint ense lesion in the left medullary olive not definitely present in 2017. Normal posterior fossa. Normal vascular flow voids at the skull base. No extra-axial fluid collection s. No evidence of mass or mass effect. Paranasal sinuses and mastoid air cells are well aerated. No h emosiderin on susceptibly weighted images. Normal optic chiasm and pituitary infundibulum. Normal cav ernous sinuses and Meckel's cave. Temporal lobes and hippocampal formations are normal in appearance. MR/MR head wo con* [id number] IMPRESSION: 1. No evidence of restricted diffusion to suggest acute ischemia. 2. Mild supra and infratentorial white matter changes similar to 2017. This is nonspecific in a patient this age but can be seen with hypertension, diabetes, small vessel disease, and migraine headaches. Demyelinating disease less likel y. Normal corpus callosum. 3. No hemosiderin on the susceptibility weighted images. 4. Temporal lobes and hippocampal formations are normal in appearance. 5. Normal optic chiasm and pituitary infundibulum.
== END 2020-03-03 12:28 | disposition home or self-care (01) ==
LOC: RADSHAW 12:34
PROVIDERS: PCP Internal Medicine; Visit Provider Internal Medicine
DX: R42 Dizziness and giddiness (principal); H53.9 Unspecified visual disturbance
CPT/HCPCS: 70551

== ENCOUNTER 2020-03-10 14:26 | Outpatient (CLI) | payer MEDICARE, MEDICAID, SELFPAY ==
--- NOTE | 2020-03-10 14:33 | XR_ITS ---
WS: [id number] SCREENING DEXA SCAN [facility] CLINICAL INFORMATION: ASYMPTOMATIC POSTMENOPAUSAL STATUS COMPARISON: None. FINDINGS: The L1-L4 bone mineral density measures 1.237 g/cm2. This corresponds to a T score score of 0.5 and Z score of 0.1. Left femoral neck bone mineral density measures 1.201 g/cm2. This corresponds to a T score of 1.5 and Z score of 1.4. Right femoral neck bone mineral density measures 1.139 g/cm2. This corresponds to a T score 1.0of and Z score of 0.9. Mean femoral neck bone mineral density measures 1.170 g/cm2. This corresponds to a T score of 1.3 and Z score of 1.2. XR/XR DEXA axial skeleton* [id number] IMPRESSION: Normal bone mineralization. Patient's FRAX calculated 10 year probability for major osteoporotic fracture i s 3.3 % and osteoporotic hip fracture is 0.0%.
== END 2020-03-10 14:27 | disposition home or self-care (01) ==
LOC: RADWPI 14:30
PROVIDERS: PCP Internal Medicine; Visit Provider Internal Medicine
DX: Z78.0 Asymptomatic menopausal state (principal)
CPT/HCPCS: 77080

== ENCOUNTER → 2020-03-21 14:49 | Outpatient (BNVA) | payer MEDICARE, MEDICAID, SELFPAY | PROVIDERS: PCP Internal Medicine; Visit Provider Specialist | DX: R53.1 Weakness (principal); M48.02 Spinal stenosis, cervical region; M51.9 Unspecified thoracic, thoracolumbar and lumbosacral intervertebral disc disorder; M79.7 Fibromyalgia; E11.40 Type 2 diabetes mellitus with diabetic neuropathy, unspecified; Z79.4 Long term (current) use of insulin; E66.01 Morbid (severe) obesity due to excess calories; Z68.37 Body mass index [BMI] 37.0-37.9, adult; Z87.891 Personal history of nicotine dependence | CPT/HCPCS: 99213; 99214 ==

== ENCOUNTER 2020-03-23 13:18 | Outpatient (CLI) | payer MEDICARE, MEDICAID, SELFPAY ==
[2020-03-23 13:53] LABS: Basophils % 0.3 %; Eosinophils % 0.2 %; Hematocrit 44.3 % (37.0-47.0); Hemoglobin 14.9 g/dL (11.5-15.3); Lymphocytes # 2.6 10^3/uL (0.8-4.8); Lymphocytes % 43.1 %; Mean Corpuscular HGB Conc 33.6 g/dL (30.0-36.0); Mean Corpuscular Hemoglobin 29.2 pg (28.0-34.0); Mean Corpuscular Volume 86.9 fL (81-99); Mean Platelet Volume 10.1 fL (7.4-10.4); Monocytes # 0.4 10^3/uL (0.2-0.9); Neutrophils # 2.98 10^3/uL (1.8-7.7); Neutrophils % 50.1 %; Nucleated Red Blood Cells % 0 %; Platelet Count 193 10^3/cmm (130-400); Red Cell Distribution Width 13.1 % (12.1-15.1)
--- NOTE | 2020-03-23 15:36 | ONC FU_ITS ---
Dr. Wooten follow up note Patient: Emmanuelle Stanford Unit #: [id number]: 1970 Dicatated By: Colton Wooten M.D.Date of Visit:Mar 23, 2020 Onc Med Follow-up/Prog Note History of Present Illness: Mrs. Emmanuelle Stanford, 49 -year-old female with history of emphysema diagnosed 5 years ago, sleep apnea on CPAP machine, heavy smoker about a pack a day for the last 30 years referred to hematology clinic for evaluation of elevated hemoglobin/hematocrit. As per patient this is a first-time she was told about high red blood cells, her labs from 11/22/2016 showed white blood count 6.6 hemoglobin 17.1 crit 48.1 normal being 34-46.6 then from 04/05/2017 white blood count 9.6 hemoglobin 16.7 hematocrit 47.1 platelets 262,000. Her repeat labs on 04/26/2017 showed white blood count 8 hemoglobin 18.2 crit 46.1 platelets 415,000 with a normal differential. recently dx with coronary artery disease underwent stent placement Now on Plavix and aspirin. Patient said she has cut done her smoking significantly and also using CPAP machine diligently. spirometry done on09/24/2018 was a normal study Now has a new CPAP machine any using it regularly as per patient but still smoke about pack a day.Tolerating phlebotomy well.Patient quit smoking on 05/05/2019. Came for follow-up, denies any specific complaints, no fever chills, no nausea or vomiting, no diarrhea constipation, no headaches no chest pain no chest heaviness, not smoking since April 2019, using CPAP machine as recommended by PMD. Medications: Acetaminophen 3 Tablet (of 500 mg) Capsule Oral t.i.d. PRN, Aspirin 1 (325 mg) Tablet Oral daily, CeleBREX 1 Capsule (of 200 mg) Oral b.i.d., Clopidogrel Bisulfate 1 Tablet (of 75 mg) Oral daily, Cyclobenzaprine HCl 1 Tablet (of 10 mg) Oral t.i.d., Enalapril Maleate 1 Tablet (of 5 mg) Oral daily, HumaLOG 15 Units (of 100 Units/mL) Subcutaneous t.i.d. PRN, Ibuprofen 3 - 4 Capsule (of 200 mg) Oral PRN, Isosorbide Mononitrate ER 1 Tablet (of 30 mg) Tablet SR 24 HR Oral daily, Jardiance 1 Tablet (of 10 mg) Oral daily, Lipitor 1 Tablet (of 20 mg) Oral daily, Lyrica 1 Capsule (of 100 mg) Oral t.i.d. PRN, Nitroglycerin 1 Tablet (of 0.4 mg) Tablet, sublingual Sublingual PRN, OxyCODONE HCl 1 Tablet (of 15 mg) Oral 5x/d, Tresiba FlexTouch 1 (56 Units) Subcutaneous at bedtime, Victoza 1 (1.8 mg) Subcutaneous daily Allergies: adhesive tape, Morphine Sulfate, and skin glue. Review of Systems: Review of Systems is not available for this patient. Vital Signs: Performed on Mar 23, 2020 15:21 Height - 64.00 in Weight - 207.4 lbs (LOW) BSA - 1.99 sq.m BMI - 35.60 (HIGH) Temperature - 97.3 F (LOW) Pulse - 92 /min Respiration - 24 /min BP - 137/79 mm(hg) O2 Sat - 99 % Pain - 7 Performance Status: 1 - No physically strenuous activity, but ambulatory and able to carry out light or sedentary work (e.g. office work, light house work). (ECOG) Physical Examination: ENMT - No mouth sores, no thrush, no jaundice, Respiratory - Lungs are clear to auscultation, Cardiovascular - Regular rate and rhythm of heart, Abdomen - Soft, bowel sounds present, Extremities - No visible edema. Lab/Imaging: Test performed on Jan 18, 2020 12:00 WBC 6.9 10 3/uL RBC 5.60 10 6/uL HGB 15.9 g/dL HCT 49.4 % MCV 88.2 fL MCH 28.4 pg MCHC 32.2 g/dL RDW 13.7 % Platelet Count 243 10 3/cmm MPV 10.0 fL Neutrophils 4.08 10 3/uL Lymphocytes 2.1 10 3/uL Monocytes 0.5 10 3/uL Eosinophils 0.2 10 3/uL Basophils 0.1 10 3/uL Neutrophil % 59.4 % Lymphocyte % 30.1 % Monocyte % 7.0 % Eosinophil % 2.5 % Basophils % 0.7 % NRBC % 0 % Impression: Polycythemia of uncertain etiology secondary versus primary most likely secondary to hypoxia due to chronic smoking/emphysema/sleep apnea, although patient use CPAP machine so it could be noncompliance or inappropriate CPAP setting. Or she will have primary polycythemia vera but less likely. JAK2 mutation checked on 05/08/2018 was not detected and erythropoietin level was 4 CALR mutation and MPL mutation was checked on 07/14/2018 was not detected Chronic/heavy smoker 1 pack per day for the last 30 years Emphysema Sleep apnea on CPAP machine Pulse oximetry done on 05/01/2017 showed cumulative minute of PO2 less than 88% were 3.2 minutes and she did not qualify for Medicaid coverage as a requirement is more than 5 minutes but she did have 37 events of desaturation and about 6 events per hour Left-sided neck/shoulder pain MRI scan C-spine done on 07/15/2017 showed posterior disc bulging at C4/C5 and especially C5 and 6 associated with mild anterior surface spinal cord impingement. Because of progressive symptom including headaches and heaviness and progressive secondary polycythemia e.g. for hemoglobin 17.5 g and hematocrit 50, she was started on phlebotomy with 500 mL on 01/01/2019 and goal is to get hematocrit close to 45 Plan: Discussed with patient regarding her labs white blood count 6 hemoglobin 14.9 hematocrit 44.3 platelets 193,000 Clinically, patient doing well with no new signs symptoms, her follow-up CBC shows her hemoglobin/hematocrit in normal range, will continue to monitor patient was encouraged and complemented for not smoking and also encouraged to use CPAP as recommended on regular basis and return to clinic in 3 months with CBC. Signed By: Colton Wooten M.D. <<Signature on File>>
== END 2020-03-23 13:19 | disposition home or self-care (01) ==
PROVIDERS: PCP Internal Medicine; Visit Provider Internal Medicine Hematology & Oncology
DX: D75.1 Secondary polycythemia (principal); F17.210 Nicotine dependence, cigarettes, uncomplicated; G47.30 Sleep apnea, unspecified; J43.9 Emphysema, unspecified; Z99.89 Dependence on other enabling machines and devices
CPT/HCPCS: 85025; G0463

== ENCOUNTER → 2020-03-29 10:07 | Outpatient (BNVA) | payer MEDICARE, MEDICAID, SELFPAY | PROVIDERS: PCP Internal Medicine; Visit Provider Anesthesiology | DX: G89.29 Other chronic pain (principal); M50.020 Cervical disc disorder with myelopathy, mid-cervical region, unspecified level; M48.02 Spinal stenosis, cervical region; M51.9 Unspecified thoracic, thoracolumbar and lumbosacral intervertebral disc disorder; M40.204 Unspecified kyphosis, thoracic region; M54.9 Dorsalgia, unspecified; Z79.891 Long term (current) use of opiate analgesic | CPT/HCPCS: 99214 ==

== ENCOUNTER 2020-04-06 15:19 | Outpatient (CLI) | payer MEDICARE, MEDICAID, SELFPAY ==
--- NOTE | 2020-04-06 15:22 | USCV_ITS ---
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 CONCLUSIONS Features suggestive of mild peripheral artery disease on the left side Dr Sarah Heath MD FACC (Electronically Signed) Final Date: 07 April 2020 18:46 S
== END 2020-04-06 15:20 | disposition home or self-care (01) ==
LOC: US 15:19
PROVIDERS: PCP Internal Medicine; Visit Provider Internal Medicine
DX: I73.9 Peripheral vascular disease, unspecified (principal); E11.59 Type 2 diabetes mellitus with other circulatory complications
CPT/HCPCS: 93922

== ENCOUNTER → 2020-04-14 08:06 | Outpatient (BNVA) | payer MEDICARE, MEDICAID, SELFPAY | PROVIDERS: PCP Internal Medicine; Referring Provider Internal Medicine; Visit Provider Internal Medicine | DX: E11.40 Type 2 diabetes mellitus with diabetic neuropathy, unspecified (principal); E78.5 Hyperlipidemia, unspecified; I10 Essential (primary) hypertension | CPT/HCPCS: 99204 ==

== ENCOUNTER → 2020-04-18 13:51 | Outpatient (BNVA) | payer MEDICARE, MEDICAID, SELFPAY | PROVIDERS: PCP Internal Medicine; Visit Provider Anesthesiology Pain Medicine | DX: G89.29 Other chronic pain (principal); M54.5 Low back pain | CPT/HCPCS: 62323; J1040; J3490 ==

== ENCOUNTER 2020-06-16 08:27 | Outpatient (CLI) | payer MEDICARE, MEDICAID, SELFPAY ==
--- NOTE | 2020-06-16 08:35 | US_ITS ---
WS: [id number] ULTRASOUND THYROID TECHNIQUE: Ultrasound of the thyroid. CLINICAL INFORMATION: THYROIDITIS COMPARISON: FINDINGS: Thyroid: Right and left thyroid lobes are normal in size and echotexture. Stable bilateral subcentime ter adenomatous nodules. Right thyroid lobe: 6.0 cm x 2.4 cm x 1.8 cm Left thyroid lobe: 5.3 cm x 1.8 cm x 1.7 cm. Isthmus: 0.4 mm. Cervical lymphadenopathy: A few normal-appearing lymph nodes. US/US thyroid [id number] IMPRESSION: 1. Stable small bilateral subcentimeter adenomatous nodules similar in appeara nce to 2019. Recommend continued surveillance.
== END 2020-06-16 08:28 | disposition home or self-care (01) ==
LOC: US 08:27
PROVIDERS: PCP Internal Medicine; Visit Provider Internal Medicine
DX: E06.9 Thyroiditis, unspecified (principal); E04.2 Nontoxic multinodular goiter; G89.29 Other chronic pain; M50.020 Cervical disc disorder with myelopathy, mid-cervical region, unspecified level; M48.02 Spinal stenosis, cervical region; M54.9 Dorsalgia, unspecified; M51.9 Unspecified thoracic, thoracolumbar and lumbosacral intervertebral disc disorder; G56.01 Carpal tunnel syndrome, right upper limb; M40.204 Unspecified kyphosis, thoracic region; Z79.891 Long term (current) use of opiate analgesic
CPT/HCPCS: 76536; 99214

== ENCOUNTER 2020-06-22 10:56 | Outpatient (CLI) | payer MEDICARE, MEDICAID, SELFPAY ==
[2020-06-22 11:41] LABS: Basophils # 0.1 10^3/uL (0.0-0.1); Basophils % 0.8 %; Hematocrit 45.8 % (37.0-47.0); Hemoglobin 15.1 g/dL (11.5-15.3); Lymphocytes # 2.1 10^3/uL (0.8-4.8); Lymphocytes % 31.8 %; Mean Corpuscular Hemoglobin 29.8 pg (28.0-34.0); Mean Corpuscular Volume 90.5 fL (81-99); Mean Platelet Volume 9.9 fL (7.4-10.4); Monocytes # 0.4 10^3/uL (0.2-0.9); Neutrophils # 3.96 10^3/uL (1.8-7.7); Neutrophils % 60.8 %; Nucleated Red Blood Cells % 0 %; Platelet Count 250 10^3/cmm (130-400); Red Blood Count 5.06 10^6/uL (4.1-5.3); Red Cell Distribution Width 12.1 % (12.1-15.1); White Blood Count 6.5 10^3/uL (4.0-10.0)
--- NOTE | 2020-06-22 13:05 | ONC FU_ITS ---
Dr. Wooten follow up note Patient: Emmanuelle Stanford Unit #: [id number]: 1970 Dicatated By: Colton Wooten M.D.Date of Visit:Jun 22, 2020 Onc Med Follow-up/Prog Note History of Present Illness: Mrs. Emmanuelle Stanford, 49 -year-old female with history of emphysema diagnosed 5 years ago, sleep apnea on CPAP machine, heavy smoker about a pack a day for the last 30 years referred to hematology clinic for evaluation of elevated hemoglobin/hematocrit. As per patient this is a first-time she was told about high red blood cells, her labs from 11/22/2016 showed white blood count 6.6 hemoglobin 17.1 crit 48.1 normal being 34-46.6 then from 04/05/2017 white blood count 9.6 hemoglobin 16.7 hematocrit 47.1 platelets 262,000. Her repeat labs on 04/26/2017 showed white blood count 8 hemoglobin 18.2 crit 46.1 platelets 415,000 with a normal differential. recently dx with coronary artery disease underwent stent placement Now on Plavix and aspirin. Patient said she has cut done her smoking significantly and also using CPAP machine diligently. spirometry done on09/24/2018 was a normal study using CPAP machine .Tolerating prn phlebotomy well.Patient quit smoking on 05/05/2019. Came for follow-up, denies any specific complaints, no fever chills, no nausea or vomiting, no diarrhea or constipation, no headaches blurred vision double vision, no chest heaviness., As per patient using CPAP machine diligently Medications: Acetaminophen 3 Tablet (of 500 mg) Capsule Oral t.i.d. PRN, Aspirin 1 (325 mg) Tablet Oral daily, CeleBREX 1 Capsule (of 200 mg) Oral b.i.d., Clopidogrel Bisulfate 1 Tablet (of 75 mg) Oral daily, Cyclobenzaprine HCl 1 Tablet (of 10 mg) Oral t.i.d., Enalapril Maleate 1 Tablet (of 5 mg) Oral daily, HumaLOG 15 Units (of 100 Units/mL) Subcutaneous t.i.d. PRN, Ibuprofen 3 - 4 Capsule (of 200 mg) Oral PRN, Isosorbide Mononitrate ER 1 Tablet (of 30 mg) Tablet SR 24 HR Oral daily, Jardiance 1 Tablet (of 10 mg) Oral daily, Lipitor 1 Tablet (of 20 mg) Oral daily, Lyrica 1 Capsule (of 100 mg) Oral t.i.d. PRN, Nitroglycerin 1 Tablet (of 0.4 mg) Tablet, sublingual Sublingual PRN, OxyCODONE HCl 1 Tablet (of 15 mg) Oral 5x/d, Tresiba FlexTouch 1 (56 Units) Subcutaneous at bedtime Allergies: adhesive tape, Morphine Sulfate, and skin glue. Review of Systems: Review of Systems is not available for this patient. Vital Signs: Performed on Jun 22, 2020 12:26 Height - 64.00 in Weight - 215.6 lbs (HIGH) BSA - 2.02 sq.m BMI - 37.01 (HIGH) Temperature - 97.5 F (LOW) Pulse - 96 /min Respiration - 18 /min BP - 135/80 mm(hg) O2 Sat - 96 % Pain - 6 Fatigue - 8 Performance Status: 1 - No physically strenuous activity, but ambulatory and able to carry out light or sedentary work (e.g. office work, light house work). (ECOG) Physical Examination: ENMT - No mouth sores, no thrush, no jaundice, Respiratory - Lungs are clear to auscultation, Cardiovascular - Regular rate and rhythm of heart, Abdomen - Soft, bowel sounds present, Extremities - No visible edema. Lab/Imaging: Test performed on Mar 23, 2020 13:28 WBC 6.0 10 3/uL RBC 5.10 10 6/uL HGB 14.9 g/dL HCT 44.3 % MCV 86.9 fL MCH 29.2 pg MCHC 33.6 g/dL RDW 13.1 % Platelet Count 193 10 3/cmm MPV 10.1 fL Neutrophils 2.98 10 3/uL Lymphocytes 2.6 10 3/uL Monocytes 0.4 10 3/uL Eosinophils 0.0 10 3/uL Basophils 0.0 10 3/uL Neutrophil % 50.1 % Lymphocyte % 43.1 % Monocyte % 6.0 % Eosinophil % 0.2 % Basophils % 0.3 % NRBC % 0 % Impression: Polycythemia of uncertain etiology secondary versus primary most likely secondary to hypoxia due to chronic smoking/emphysema/sleep apnea, although patient use CPAP machine so it could be noncompliance or inappropriate CPAP setting. Or she will have primary polycythemia vera but less likely. JAK2 mutation checked on 05/08/2018 was not detected and erythropoietin level was 4 CALR mutation and MPL mutation was checked on 07/14/2018 was not detected Chronic/heavy smoker 1 pack per day for the last 30 years Emphysema Sleep apnea on CPAP machine Pulse oximetry done on 05/01/2017 showed cumulative minute of PO2 less than 88% were 3.2 minutes and she did not qualify for Medicaid coverage as a requirement is more than 5 minutes but she did have 37 events of desaturation and about 6 events per hour Left-sided neck/shoulder pain MRI scan C-spine done on 07/15/2017 showed posterior disc bulging at C4/C5 and especially C5 and 6 associated with mild anterior surface spinal cord impingement. Because of progressive symptom including headaches and heaviness and progressive secondary polycythemia e.g. for hemoglobin 17.5 g and hematocrit 50, she was started on phlebotomy with 500 mL on 01/01/2019 and goal is to get hematocrit close to 45 Plan: Discussed with patient regarding her labs white blood count 6.5 hemoglobin 15.1 hematocrit 45.8 compared to 44.3 on March 23, 2020 Clinically, patient is doing well with no new signs symptoms, now being monitored and follow-up CBC shows stable hemoglobin/hematocrit, will continue to monitor patient was encouraged to use CPAP machine as recommended by PMD and not to smoke. Return to clinic in 3 months with CBC Signed By: Colton Wooten M.D. <<Signature on File>>
== END 2020-06-22 10:57 | disposition home or self-care (01) ==
LOC: ONCMED 11:00
PROVIDERS: PCP Internal Medicine; Visit Provider Internal Medicine Hematology & Oncology
DX: D75.1 Secondary polycythemia (principal); R09.02 Hypoxemia; F17.210 Nicotine dependence, cigarettes, uncomplicated; J43.9 Emphysema, unspecified; G47.33 Obstructive sleep apnea (adult) (pediatric); M54.2 Cervicalgia; M25.512 Pain in left shoulder; Z79.899 Other long term (current) drug therapy
CPT/HCPCS: 85025; G0463

== ENCOUNTER → 2020-07-14 10:03 | Outpatient (BNVA) | payer MEDICARE, MEDICAID, SELFPAY | PROVIDERS: PCP Internal Medicine; Visit Provider Internal Medicine | DX: E11.40 Type 2 diabetes mellitus with diabetic neuropathy, unspecified (principal) | CPT/HCPCS: 99214 ==

== ENCOUNTER → 2020-07-18 12:59 | Outpatient (BNVA) | payer MEDICARE, MEDICAID, SELFPAY | PROVIDERS: PCP Internal Medicine; Visit Provider Anesthesiology Pain Medicine | DX: G89.29 Other chronic pain (principal); M54.2 Cervicalgia; Z79.891 Long term (current) use of opiate analgesic | CPT/HCPCS: 62321; J1100 ==

== ENCOUNTER → 2020-08-11 13:01 | Outpatient (BNVA) | payer MEDICARE, MEDICAID, SELFPAY | PROVIDERS: PCP Internal Medicine; Visit Provider Nurse Practitioner | DX: G89.29 Other chronic pain (principal); M51.9 Unspecified thoracic, thoracolumbar and lumbosacral intervertebral disc disorder; M40.204 Unspecified kyphosis, thoracic region; M50.020 Cervical disc disorder with myelopathy, mid-cervical region, unspecified level; M48.02 Spinal stenosis, cervical region; M54.9 Dorsalgia, unspecified; M79.7 Fibromyalgia; Z79.891 Long term (current) use of opiate analgesic | CPT/HCPCS: 99213; 99214 ==

== ENCOUNTER 2020-09-28 12:45 | Outpatient (CLI) | payer MEDICARE, MEDICAID, SELFPAY ==
[2020-09-28 13:45] LABS: Basophils # 0.1 10^3/uL (0.0-0.1); Basophils % 0.7 %; Eosinophils # 0.3 10^3/uL (0.0-0.8); Eosinophils % 3.1 %; Hemoglobin 15.5 g/dL (11.5-15.3); Lymphocytes # 2.9 10^3/uL (0.8-4.8); Lymphocytes % 35.1 %; Mean Corpuscular Hemoglobin 29.8 pg (28.0-34.0); Mean Corpuscular Volume 90.2 fL (81-99); Mean Platelet Volume 10.1 fL (7.4-10.4); Monocytes # 0.5 10^3/uL (0.2-0.9); Monocytes % 5.4 %; Neutrophils % 55.5 %; Nucleated Red Blood Cells % 0 %; Platelet Count 276 10^3/cmm (130-400); Red Blood Count 5.21 10^6/uL (4.1-5.3); Red Cell Distribution Width 11.9 % (12.1-15.1); White Blood Count 8.3 10^3/uL (4.0-10.0)
--- NOTE | 2020-10-16 16:50 | ONC FU_ITS ---
Joe Narayanan Patient Note Patient: Emmanuelle Stanford Unit #: [id number]: 1970 Dictated By: Lisa FelipeDate of Visit: Sep 28, 2020 Onc MED Follow-Up/Prog Note Chief Complaint: Polycythemia History of Present Illness: Ms Stanford is a 49 -year-old female with history of emphysema, sleep apnea on CPAP machine. She is also a heavy smoker-about a pack a day for the last 30 years. She was referred to the hematology clinic for evaluation of elevated hemoglobin/hematocrit. As per patient this was the first-time she was told about high red blood cells. Her labs from 11/22/2016 showed white blood count 6.6 hemoglobin 17.1 crit 48.1 (normal being 34-46.6). Recheck of her CBC reportted on 04/05/2017 white blood count 9.6 hemoglobin 16.7 hematocrit 47.1 platelets 262,000. Her repeat labs on 04/26/2017 showed white blood count 8 hemoglobin 18.2 crit 46.1 platelets 415,000 with a normal differential. She was dx with coronary artery disease underwent stent placement in 2018. She was placed on Plavix and aspirin. She has cut done her smoking significantly and also using CPAP machine diligently. spirometry done on09/24/2018 was a normal study. Her polycythemia has been managed with phlebotomies to maintain her HCT 45 or less. She tolerates the phlebotomies well. is here today for follow-up. She states overall she feels pretty good. She has had some fatigue and new shortness of breath. She states that shortness of breath feels like she does when she needs a phlebotomy. She denies any chest pain or orthopnea. She is had no palpitations. She denies any recent fever or chills. She states that her appetite is good and her energy is fair. She states she typically does feel some better after the phlebotomies. She denies any bruising or bleeding. She remains on the Plavix and aspirin for her coronary artery disease. She denies any lower extremity edema. Her ECOG is 1. Past Medical History: Chronic obstructive pulmonary disease Coronary artery disease Hyperlipidemia Hypertension Obstructive sleep apnea Peripheral neuropathy Type II diabetes Past Surgical History: Cholecystectomy Hysterectomy - total abdominal Left axilary lymph node biopsy Tonsillectomy Cardiac stents x2 in 2018 Colonoscopy in 2016 Hernia repair in 2014 Caesarean section in 2002 Left elbow in 1999 Allergies: adhesive tape, Morphine Sulfate, and skin glue. Medications: Acetaminophen 3 Tablet (of 500 mg) Capsule Oral t.i.d. PRN Aspirin 1 (325 mg) Tablet Oral daily CeleBREX 1 Capsule (of 200 mg) Oral b.i.d. Clopidogrel Bisulfate 1 Tablet (of 75 mg) Oral daily Cyclobenzaprine HCl 1 Tablet (of 10 mg) Oral t.i.d. Enalapril Maleate 1 Tablet (of 5 mg) Oral daily HumaLOG 15 Units (of 100 Units/mL) Subcutaneous t.i.d. PRN Ibuprofen 3 - 4 Capsule (of 200 mg) Oral PRN Isosorbide Mononitrate ER 1 Tablet (of 30 mg) Tablet SR 24 HR Oral daily Jardiance 1 Tablet (of 10 mg) Oral daily Lipitor 1 Tablet (of 20 mg) Oral daily Lyrica 1 Capsule (of 100 mg) Oral t.i.d. PRN Metoprolol Succinate ER 1 Tablet (of 25 mg) Tablet SR 24 HR Oral b.i.d. Nitroglycerin 1 Tablet (of 0.4 mg) Tablet, sublingual Sublingual PRN OxyCODONE HCl 1 Tablet (of 15 mg) Oral 5x/d Tresiba FlexTouch 1 (56 Units) Subcutaneous at bedtime Family History: Ms. Stanford's mother is alive: depression, and heart disease, and hypertension, and migraines, and uterine cancer. Ms. Stanford's father at age 56: alcoholism, and heart disease, and hypertension. Ms. Stanford has 1 brother who is alive: hypertension, and coronary artery disease. She has 1 sister who is alive: hypertension. Patient's grandfather with lung cancer. Social History: Ms. Stanford is and she is a disabled. She quit smoking 1 year ago but had smoked 0.5 packs/day for 34 years. She has no history of drinking. pt states she has not had a cigarette for one 1 month. Review Of Symptoms: <See Above> Vital Signs: Performed on Sep 28, 2020 14:33 Height - 64.00 in Weight - 218.2 lbs (HIGH) BSA - 2.03 sq.m BMI - 37.45 (HIGH) Temperature - 96.9 F (LOW) Pulse - 88 /min Respiration - 18 /min BP - 99/63 mm(hg) O2 Sat - 97 % Pain - 0,1 - No physically strenuous activity, but ambulatory and able to carry out light or sedentary work (e.g. office work, light house work). (ECOG) Physical Examination: Constitutional Alert, oriented, no acute distress. Skin pink, warm and dry. Head Normocephalic; atraumatic. Eyes Conjunctivae and sclerae are clear and without icterus. Pupils are reactive and equal. Neck Supple without masses or thyromegaly. No jugular venous distension. Hematologic/Lymphatic No petechiae or purpura. No tender or palpable lymph nodes in the cervical or supraclavicular areas. Respiratory Lungs are clear to auscultation without rhonchi or wheezing. Cardiovascular Regular rate and rhythm of heart without murmurs,clicks, gallops or rubs. Back/Spine Non-tender to palpation. Extremities No visible deformities, no cyanosis, clubbing or edema. Musculoskeletal No tenderness or swelling, normal range of motion without obvious weakness. Integumentary No rashes or lesions. Neurologic No sensory or motor deficits, normal cerebellar function, normal gait. Psychiatric Alert and oriented times three. Coherent speech. Verbalizes understanding of our discussions today. Laboratory:Test performed on Sep 28, 2020 13:09 WBC 8.3 10 3/uL RBC 5.21 10 6/uL HGB 15.5 g/dL HCT 47.0 % MCV 90.2 fL MCH 29.8 pg MCHC 33.0 g/dL RDW 11.9 % Platelet Count 276 10 3/cmm MPV 10.1 fL Neutrophils 4.60 10 3/uL Lymphocytes 2.9 10 3/uL Monocytes 0.5 10 3/uL Eosinophils 0.3 10 3/uL Basophils 0.1 10 3/uL Neutrophil % 55.5 % Lymphocyte % 35.1 % Monocyte % 5.4 % Eosinophil % 3.1 % Basophils % 0.7 % NRBC % 0 % Impression: Polycythemia of uncertain etiology secondary versus primary most likely secondary to hypoxia due to chronic smoking/emphysema/sleep apnea, although patient use CPAP machine so it could be noncompliance or inappropriate CPAP setting. Or she will have primary polycythemia vera but less likely. JAK2 mutation checked on 05/08/2018 was not detected and erythropoietin level was 4 CALR mutation and MPL mutation was checked on 07/14/2018 was not detected Chronic/heavy smoker 1 pack per day for the last 30 years Emphysema Sleep apnea on CPAP machine Pulse oximetry done on 05/01/2017 showed cumulative minute of PO2 less than 88% were 3.2 minutes and she did not qualify for Medicaid coverage as a requirement is more than 5 minutes but she did have 37 events of desaturation and about 6 events per hour Left-sided neck/shoulder pain MRI scan C-spine done on 07/15/2017 showed posterior disc bulging at C4/C5 and especially C5 and 6 associated with mild anterior surface spinal cord impingement. Because of progressive symptom including headaches and heaviness and progressive secondary polycythemia e.g. for hemoglobin 17.5 g and hematocrit 50, she was started on phlebotomy with 500 mL on 01/01/2019 and goal is to get hematocrit close to 45 Plan/Problems Addressed at this Visit: 1. Polycythemia of unknown etiology A. She has had no detection of JAK2 mutation on 05/08/2018 at which time her erythropoietin level was 4. Her CALR mutation and MPL mutation was checked on 07/14/2018 and it was not detected also. She has had a 30-year 1 pack/day smoking history. B. Her labs from today were reviewed in detail and discussed with her. A copy of the labs was given to her as well. WBC 8.3, hemoglobin 15.7, hematocrit 47. Neutrophils 4600. C. She will proceed with phlebotomy today as she is at 46 and feels that she does needed. 2. Plan A. She will have monthly CBCs and phlebotomies as needed for hematocrit greater than 45. We will remove 500 mL with 8 phlebotomy as needed. B. We will plan to see her back in 2 months with CBC CMP C. Mrs. Stanford has been instructed to contact us in the interim should questions or problems arise. Signed By: Lisa Felipe-, [facility] Colton Wooten MD <<Signature on File>>
== END 2020-09-28 12:46 | disposition home or self-care (01) ==
LOC: ONCMED 12:49
PROVIDERS: PCP Internal Medicine; Visit Provider Nurse Practitioner
DX: D45 Polycythemia vera (principal); F17.210 Nicotine dependence, cigarettes, uncomplicated; J43.9 Emphysema, unspecified; G47.33 Obstructive sleep apnea (adult) (pediatric); C54.2 Malignant neoplasm of myometrium; M25.512 Pain in left shoulder; Z79.899 Other long term (current) drug therapy
CPT/HCPCS: 36415; 85025; 99195; 99214

== ENCOUNTER 2020-10-05 06:47 | Outpatient (CLI) | payer MEDICARE, MEDICAID, SELFPAY ==
[2020-10-05 06:59] VITALS: BMI 39.9
--- NOTE | 2020-10-05 07:00 | ECG_ITS ---
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 Interpretive Statements NAME OF STUDY: LEXISCAN SESTAMIBI STRESS TEST INDICATION: Chest pain PROCEDURE: At the baseline, the blood pressure was 117/76 with a heart rate of 82 bpm and oxygen saturation 98%. The electrocardiogram showed normal sinus rhythm, normal axis with normal ST-T's. The Lexiscan was infused over a period of 20 seconds. A total of 0.4 milligrams of Lexiscan was infused. The stress phase was continued for a total of 5 minutes. Heart rate at the end of the stress phase was 90 bpm with a blood pressure of 113/76 mmHg. The EKG at the peak infusion revealed sinus rhythm with no significant ST-T wave changes. The study was terminated due to protocol completion. Sestamibi was injected 20 seconds after the Lexiscan infusion. Blood pressure at the end of the recovery phase was 121/78 mmHg with a heart rate of 89 beats per minute. CONCLUSION: 1. No significant EKG changes with the LexiScan infusion. 2. No LexiScan induced chest pain or cardiac arrhythmia. 3. Normal blood pressure and heart rate response. 4. Sestamibi/sestamibi perfusion scan pending; see separate report. Electronically Signed On 10-07-2020 18:32:45 CDT by Isa Israel M.D. [email or web address]
--- NOTE | 2020-10-05 07:00 | NMCV_ITS ---
NM yunier perf SPECT r/s* [id number] Emmanuelle Stanford Age: 49 Gender: F : 1970 Exam Date: 10/05/2020 07:00 Ordering Phys: Isa Israel MD ([email or web address]) Technologist: SMITHA Porter Exam Location: [facility] Indications: CHEST PAIN STRESS TEST Please see separate stress test report in [facility] for full findings IMAGE PROTOCOL Rest/Stress 1 Lexiscan Day Radiopharmaceutical Dose (mCi) Administration Site Administered by Rest: Tc-99m 10.8 IV SMITHA Campoverde Sestamibi Stress:Tc-99m 32.9 IV SMITHA Campoverde Sestamibi Rest: 05-Oct-2020 60 Discovery 630 Stress: 05-Oct-2020 30 Discovery 630 0.4mg Lexiscan. Images obtained in supine and prone position. SPECT RESULTS Technical Quality: Excellent Raw Data Analysis: Breast attenuation Image Corrections: No attenuation or motion correction applied Summed Stress Score: 1 Summed Rest Score: 7 Summed Difference Score: 0 PERFUSION FINDINGS Small sized perfusion abnormality of mild severity of mid to apical inferolateral apical septal and apical cordero on rest images with improved tracer uptake in mid inferolateral and apical septal cordero on stress images. FUNCTIONAL RESULTS (calculated via Gated SPECT) Stress Image LV EF (%): 72 Stress EDV (mL):94 TID: 0.82 Stress ESV (mL):26 FUNCTIONAL FINDINGS: The left ventricle is normal in size. Transient Ischemia Dilatation of 0.82. There is normal left ventricular systolic function. The left ventricular ejection fraction is normal with a value of 72%. There is normal left ventricular wall thickening with no regional wall motion abnormality. Normal end-diastolic and end-systolic volumes. IMPRESSIONS 1. Small sized paradoxical perfusion abnormality of mild severity of mid inferolateral apical septal and apical cordero. This is likely suggestive of attenuation artifact. 2. Small sized fixed perfusion abnormality of apical lateral wall. This may represent old myocardial infarction or attenuation artifact. 3. Overall left ventricular systolic function is normal without regional wall motion abnormalities, LVEF=72%. 4. No coronary ischemia based on the study. Isa Israel MD (Electronically Signed) Final Date: 07 October 2020 18:39 S
[2020-10-05] MEDS: regadenoson 0.4 Mg/5 ml Syringe IVP (08:30)
[2020-10-05 08:41] VITALS: BP 121/78; PULSE 94
== END 2020-10-05 06:48 | disposition home or self-care (01) ==
LOC: CDL 06:49
PROVIDERS: PCP Internal Medicine; Visit Provider Internal Medicine Cardiovascular Disease
DX: R07.9 Chest pain, unspecified (principal)
CPT/HCPCS: 78452; 93017; A9500; J2785

== ENCOUNTER → 2020-10-18 12:42 | Outpatient (BNVA) | payer MEDICARE, MEDICAID, SELFPAY | PROVIDERS: PCP Internal Medicine; Visit Provider Nurse Practitioner | DX: G89.29 Other chronic pain (principal); M48.02 Spinal stenosis, cervical region; M50.020 Cervical disc disorder with myelopathy, mid-cervical region, unspecified level; M51.9 Unspecified thoracic, thoracolumbar and lumbosacral intervertebral disc disorder; M54.9 Dorsalgia, unspecified; Z79.891 Long term (current) use of opiate analgesic | CPT/HCPCS: 99214 ==

== ENCOUNTER 2020-10-28 09:13 | Outpatient (CLI) | payer MEDICARE, MEDICAID, SELFPAY ==
[2020-10-28 09:56] LABS: Basophils # 0.1 10^3/uL (0.0-0.1); Basophils % 1.1 %; Eosinophils # 0.1 10^3/uL (0.0-0.8); Eosinophils % 1.5 %; Hematocrit 44.4 % (37.0-47.0); Hemoglobin 14.4 g/dL (11.5-15.3); Lymphocytes # 2.2 10^3/uL (0.8-4.8); Lymphocytes % 40.8 %; Mean Corpuscular HGB Conc 32.4 g/dL (30.0-36.0); Mean Corpuscular Hemoglobin 29.1 pg (28.0-34.0); Mean Corpuscular Volume 89.7 fL (81-99); Monocytes # 0.4 10^3/uL (0.2-0.9); Monocytes % 7.3 %; Neutrophils # 2.69 10^3/uL (1.8-7.7); Neutrophils % 48.9 %; Nucleated Red Blood Cells % 0 %; Platelet Count 275 10^3/cmm (130-400); Red Blood Count 4.95 10^6/uL (4.1-5.3); Red Cell Distribution Width 12.2 % (12.1-15.1); White Blood Count 5.5 10^3/uL (4.0-10.0)
== END 2020-10-28 09:14 | disposition home or self-care (01) ==
PROVIDERS: PCP Internal Medicine; Visit Provider Internal Medicine Hematology & Oncology
DX: D45 Polycythemia vera (principal)
CPT/HCPCS: 36415; 85025

== ENCOUNTER → 2020-11-25 12:41 | Outpatient (BNVA) | payer MEDICARE, MEDICAID, SELFPAY | PROVIDERS: PCP Internal Medicine; Visit Provider Nurse Practitioner | DX: G89.29 Other chronic pain (principal); M40.204 Unspecified kyphosis, thoracic region; M51.9 Unspecified thoracic, thoracolumbar and lumbosacral intervertebral disc disorder; M48.02 Spinal stenosis, cervical region; M50.020 Cervical disc disorder with myelopathy, mid-cervical region, unspecified level; E66.01 Morbid (severe) obesity due to excess calories; E11.40 Type 2 diabetes mellitus with diabetic neuropathy, unspecified; Z79.891 Long term (current) use of opiate analgesic | CPT/HCPCS: 99213; 99214 ==

== ENCOUNTER 2020-11-28 13:04 | Outpatient (CLI) | payer MEDICARE, MEDICAID, SELFPAY ==
[2020-11-28 13:44] LABS: Basophils % 0.7 %; Eosinophils # 0.1 10^3/uL (0.0-0.8); Eosinophils % 2.1 %; Hematocrit 44.3 % (37.0-47.0); Hemoglobin 14.3 g/dL (11.5-15.3); Lymphocytes # 2.2 10^3/uL (0.8-4.8); Lymphocytes % 37.1 %; Mean Corpuscular HGB Conc 32.3 g/dL (30.0-36.0); Mean Corpuscular Hemoglobin 29.2 pg (28.0-34.0); Mean Corpuscular Volume 90.6 fL (81-99); Mean Platelet Volume 10.6 fL (7.4-10.4); Monocytes # 0.4 10^3/uL (0.2-0.9); Monocytes % 7.1 %; Neutrophils # 3.07 10^3/uL (1.8-7.7); Neutrophils % 52.8 %; Nucleated Red Blood Cells % 0 %; Platelet Count 247 10^3/cmm (130-400); Red Blood Count 4.89 10^6/uL (4.1-5.3); Red Cell Distribution Width 12.3 % (12.1-15.1); White Blood Count 5.8 10^3/uL (4.0-10.0)
[2020-11-28 14:16] LABS: Alanine Aminotransferase 24 U/L (0-33); Albumin Level 4.1 g/dL (3.5-5.2); Alkaline Phosphatase 84 IU/L (35-105); Aspartate Amino Transferase 16 U/L (0-32); Blood Urea Nitrogen 9 mg/dL (6-20); Calcium 8.6 mg/dL (8.5-10.5); Carbon Dioxide 24 mmol/L (22-29); Chloride 99 mmol/L (98-107); Globulin 2.4 g/dL (1.3-4.6); Glomerular Filtration Rate 168.3 mL/min (90-130); Glucose 240 mg/dL (65-115); Osmolality Calculated 289 mOsm/kg (285-295); Sodium 136 mmol/L (136-145); Total Bilirubin 0.3 mg/dL (0.15-1.2); Total Protein 6.5 g/dL (6.6-8.7)
--- NOTE | 2020-11-28 14:24 | ONC FU_ITS ---
Dr. Wooten follow up note Patient: Emmanuelle Stanford Unit #: [id number]: [id number] Dicatated By: Colton Wooten M.D.Date of Visit:Nov 28, 2020 Onc Med Follow-up/Prog Note History of Present Illness: Ms Stanford is a 49 -year-old female with history of emphysema, sleep apnea on CPAP machine. She is also a heavy smoker-about a pack a day for the last 30 years. She was referred to the hematology clinic for evaluation of elevated hemoglobin/hematocrit. As per patient this was the first-time she was told about high red blood cells. Her labs from 11/22/2016 showed white blood count 6.6 hemoglobin 17.1 crit 48.1 (normal being 34-46.6). Recheck of her CBC reportted on 04/05/2017 white blood count 9.6 hemoglobin 16.7 hematocrit 47.1 platelets 262,000. Her repeat labs on 04/26/2017 showed white blood count 8 hemoglobin 18.2 crit 46.1 platelets 415,000 with a normal differential. She was dx with coronary artery disease underwent stent placement in 2018. She was placed on Plavix and aspirin. She has cut done her smoking significantly and also using CPAP machine diligently. spirometry done on09/24/2018 was a normal study. Her polycythemia has been managed with phlebotomies to maintain her HCT 45 or less. She tolerates the phlebotomies well. Came for follow-up, denies any specific complaints, no fever chills, no nausea or vomiting, no diarrhea or constipation, no headaches blurred vision or double vision, no shortness of breath, no chest pain, patient is not smoking anymore and is using her CPAP machine regularly Medications: Acetaminophen 3 Tablet (of 500 mg) Capsule Oral t.i.d. PRN, Aspirin 1 (325 mg) Tablet Oral daily, CeleBREX 1 Capsule (of 200 mg) Oral b.i.d., Clopidogrel Bisulfate 1 Tablet (of 75 mg) Oral daily, Cyclobenzaprine HCl 1 Tablet (of 10 mg) Oral t.i.d., Enalapril Maleate 1 Tablet (of 5 mg) Oral daily, HumaLOG 15 Units (of 100 Units/mL) Subcutaneous t.i.d. PRN, Ibuprofen 3 - 4 Capsule (of 200 mg) Oral PRN, Isosorbide Mononitrate ER 1 Tablet (of 30 mg) Tablet SR 24 HR Oral daily, Jardiance 1 Tablet (of 10 mg) Oral daily, Lipitor 1 Tablet (of 20 mg) Oral daily, Lyrica 1 Capsule (of 100 mg) Oral t.i.d. PRN, Metoprolol Succinate ER 1 Tablet (of 25 mg) Tablet SR 24 HR Oral b.i.d., Nitroglycerin 1 Tablet (of 0.4 mg) Tablet, sublingual Sublingual PRN, OxyCODONE HCl 1 Tablet (of 15 mg) Oral 5x/d, Tresiba FlexTouch 1 (56 Units) Subcutaneous at bedtime Allergies: adhesive tape, Morphine Sulfate, and skin glue. Review of Systems: Review of Systems is not available for this patient. Vital Signs: Vitals are not available for this patient. Performance Status: 0 - Fully active, able to carry on all predisease activities without restrictions. (ECOG) Physical Examination: ENMT - No mouth sores, no thrush, no jaundice, Respiratory - Lungs are clear to auscultation, Cardiovascular - Regular rate and rhythm of heart, Abdomen - Soft, bowel sounds present, Extremities - No visible edema. Lab/Imaging: Test performed on Sep 28, 2020 13:09 WBC 8.3 10 3/uL RBC 5.21 10 6/uL HGB 15.5 g/dL HCT 47.0 % MCV 90.2 fL MCH 29.8 pg MCHC 33.0 g/dL RDW 11.9 % Platelet Count 276 10 3/cmm MPV 10.1 fL Neutrophils 4.60 10 3/uL Lymphocytes 2.9 10 3/uL Monocytes 0.5 10 3/uL Eosinophils 0.3 10 3/uL Basophils 0.1 10 3/uL Neutrophil % 55.5 % Lymphocyte % 35.1 % Monocyte % 5.4 % Eosinophil % 3.1 % Basophils % 0.7 % NRBC % 0 % Impression: Polycythemia of uncertain etiology secondary versus primary most likely secondary to hypoxia due to chronic smoking/emphysema/sleep apnea, although patient use CPAP machine so it could be noncompliance or inappropriate CPAP setting. Or she will have primary polycythemia vera but less likely. JAK2 mutation checked on 05/08/2018 was not detected and erythropoietin level was 4 CALR mutation and MPL mutation was checked on 07/14/2018 was not detected Chronic/heavy smoker 1 pack per day for the last 30 years Emphysema Sleep apnea on CPAP machine Pulse oximetry done on 05/01/2017 showed cumulative minute of PO2 less than 88% were 3.2 minutes and she did not qualify for Medicaid coverage as a requirement is more than 5 minutes but she did have 37 events of desaturation and about 6 events per hour Left-sided neck/shoulder pain MRI scan C-spine done on 07/15/2017 showed posterior disc bulging at C4/C5 and especially C5 and 6 associated with mild anterior surface spinal cord impingement. Because of progressive symptom including headaches and heaviness and progressive secondary polycythemia e.g. for hemoglobin 17.5 g and hematocrit 50, she was started on phlebotomy with 500 mL on 01/01/2019 and goal is to get hematocrit close to 45 Plan: Discussed with patient regarding her labs Which shows white blood count 5.8 hemoglobin 14.3 medical 44.3 platelets 247,006 Clinically, patient doing well with no new signs symptom, her hematocrit is in desirable range, patient is not smoking anymore and also using her CPAP machine on regular basis, patient was encouraged to stay away from smoking and stay in compliance with CPAP machine. And also maintain hydration Return to clinic in 4 months with CBC Signed By: Colton Wooten M.D. <<Signature on File>>
== END 2020-11-28 13:05 | disposition home or self-care (01) ==
LOC: ONCMED 13:08
PROVIDERS: PCP Internal Medicine; Visit Provider Internal Medicine Hematology & Oncology
DX: D75.1 Secondary polycythemia (principal); F17.210 Nicotine dependence, cigarettes, uncomplicated; J43.9 Emphysema, unspecified; G47.30 Sleep apnea, unspecified; M54.2 Cervicalgia; M25.512 Pain in left shoulder; Z79.899 Other long term (current) drug therapy
CPT/HCPCS: 36415; 80053; 85025; 99214

== ENCOUNTER → 2020-12-01 08:33 | Outpatient (BNVA) | payer MEDICARE, MEDICAID, SELFPAY | PROVIDERS: PCP Internal Medicine; Visit Provider Anesthesiology | DX: G89.29 Other chronic pain (principal); M51.9 Unspecified thoracic, thoracolumbar and lumbosacral intervertebral disc disorder; Z87.891 Personal history of nicotine dependence; Z79.891 Long term (current) use of opiate analgesic; M54.5 Low back pain | CPT/HCPCS: 62323; J1040; J3490 ==

== ENCOUNTER 2020-12-16 09:47 | Outpatient (CLI) | payer MEDICARE, MEDICAID, SELFPAY ==
--- NOTE | 2020-12-16 09:54 | MM_ITS ---
WS: [id number] BILATERAL SCREENING DIGITAL MAMMOGRAM WITH CAD HISTORY: SCREENING COMPARISON: 11/06/2019 10/10/2018 Bilateral CC and MLO views submitted. Computer aided detection analyzed. Breast composition: There are scattered areas of fibroglandular density. No suspicious masses, microc alcifications or architectural distortion. Benign calcifications LEFT breast. MM/[place] [id number] IMPRESSION: BI-RADS: 2-Benign FOLLOW UP: 1 Year Follow-up
== END 2020-12-16 09:48 | disposition home or self-care (01) ==
LOC: RADSHAW 09:51
PROVIDERS: PCP Internal Medicine; Visit Provider Internal Medicine
DX: Z12.31 Encounter for screening mammogram for malignant neoplasm of breast (principal)
CPT/HCPCS: 77067

== ENCOUNTER → 2021-01-19 13:04 | Outpatient (BNVA) | payer MEDICARE, MEDICAID, SELFPAY | PROVIDERS: PCP Internal Medicine; Visit Provider Nurse Practitioner | DX: G89.29 Other chronic pain (principal); M48.02 Spinal stenosis, cervical region; M50.020 Cervical disc disorder with myelopathy, mid-cervical region, unspecified level; M51.9 Unspecified thoracic, thoracolumbar and lumbosacral intervertebral disc disorder; M40.204 Unspecified kyphosis, thoracic region; G56.02 Carpal tunnel syndrome, left upper limb; E66.01 Morbid (severe) obesity due to excess calories; E11.40 Type 2 diabetes mellitus with diabetic neuropathy, unspecified; R42 Dizziness and giddiness; Z79.891 Long term (current) use of opiate analgesic | CPT/HCPCS: 99214 ==

== ENCOUNTER → 2021-02-23 08:10 | Outpatient (BNVA) | payer MEDICARE, MEDICAID, SELFPAY | PROVIDERS: PCP Internal Medicine; Visit Provider Anesthesiology | DX: G89.29 Other chronic pain (principal); M51.16 Intervertebral disc disorders with radiculopathy, lumbar region; M51.9 Unspecified thoracic, thoracolumbar and lumbosacral intervertebral disc disorder; Z79.891 Long term (current) use of opiate analgesic | CPT/HCPCS: 62323 ==

== ENCOUNTER 2021-03-09 13:11 | Outpatient (CLI) | payer MEDICARE, MEDICAID, SELFPAY ==
[2021-03-09 14:10] VITALS: BP 100/62; PULSE 86; RESP 18; TEMP 36.1; O2SAT 93; BMI 36.6
--- NOTE | 2021-03-09 14:34 | PC.NURSE ---
All assessments by SILVANA Mccord and BRADLY Diego/Documented by BRADLY Beavers
[2021-03-09 14:44] VITALS: BP 102/62; PULSE 84; RESP 18; O2SAT 91
[2021-03-09 15:44] VITALS: BP 98/64; PULSE 93; RESP 18; TEMP 36.2; O2SAT 91
== END 2021-03-09 13:12 | disposition home or self-care (01) ==
LOC: OPS 13:14
PROVIDERS: PCP Internal Medicine; Visit Provider Internal Medicine
DX: U07.1 COVID-19 (principal)
CPT/HCPCS: 96365

== ENCOUNTER → 2021-03-24 13:08 | Outpatient (BNVA) | payer MEDICARE, MEDICAID, SELFPAY | PROVIDERS: PCP Internal Medicine; Visit Provider Anesthesiology | DX: G89.29 Other chronic pain (principal); M51.9 Unspecified thoracic, thoracolumbar and lumbosacral intervertebral disc disorder; M48.02 Spinal stenosis, cervical region; M50.020 Cervical disc disorder with myelopathy, mid-cervical region, unspecified level; Z79.891 Long term (current) use of opiate analgesic; Z87.891 Personal history of nicotine dependence | CPT/HCPCS: 99214 ==

== ENCOUNTER 2021-03-29 12:26 | Outpatient (CLI) | payer MEDICARE, MEDICAID, SELFPAY ==
[2021-03-29 13:14] LABS: Basophils % 0.3 %; Hematocrit 43.5 % (37.0-47.0); Hemoglobin 14.2 g/dL (11.5-15.3); Lymphocytes # 1.4 10^3/uL (0.8-4.8); Lymphocytes % 13.5 %; Mean Corpuscular HGB Conc 32.6 g/dL (30.0-36.0); Mean Corpuscular Hemoglobin 29.6 pg (28.0-34.0); Mean Corpuscular Volume 90.8 fl (81-99); Mean Platelet Volume 9.6 fL (7.4-10.4); Monocytes # 0.7 10^3/uL (0.2-0.9); Monocytes % 6.6 %; Neutrophils # 8.33 10^3/uL (1.8-7.7); Neutrophils % 79.3 %; Nucleated Red Blood Cells % 0 %; Platelet Count 251 10^3/cmm (130-400); Red Blood Count 4.79 10^6/uL (4.1-5.3); Red Cell Distribution Width 12.9 % (12.1-15.1); White Blood Count 10.5 10^3/uL (4.0-10.0)
--- NOTE | 2021-03-29 15:04 | ONC FU_ITS ---
Dr. Wooten follow up note Patient: Emmanuelle Stanford Unit #: [id number]: 1970 Dicatated By: Colton Wooten M.D.Date of Visit:Mar 29, 2021 Onc Med Follow-up/Prog Note History of Present Illness: Ms Stanford is a 49 -year-old female with history of emphysema, sleep apnea on CPAP machine. She is also a heavy smoker-about a pack a day for the last 30 years. She was referred to the hematology clinic for evaluation of elevated hemoglobin/hematocrit. As per patient this was the first-time she was told about high red blood cells. Her labs from 11/22/2016 showed white blood count 6.6 hemoglobin 17.1 crit 48.1 (normal being 34-46.6). Recheck of her CBC reportted on 04/05/2017 white blood count 9.6 hemoglobin 16.7 hematocrit 47.1 platelets 262,000. Her repeat labs on 04/26/2017 showed white blood count 8 hemoglobin 18.2 crit 46.1 platelets 415,000 with a normal differential. She was dx with coronary artery disease underwent stent placement in 2018. She was placed on Plavix and aspirin. She has cut done her smoking significantly and also using CPAP machine diligently. spirometry done on09/24/2018 was a normal study. Her polycythemia has been managed with phlebotomies to maintain her HCT 45 or less. She tolerates the phlebotomies well. Came for follow-up, complaining of generalized weakness and fatigue, as per patient she is recovering from Covid infection, denies any headaches denies any blurred vision double vision denies any fever chills, patient not smoking as per patient she quit that about 2 years ago and her also quit smoking recently. Medications: Acetaminophen 3 Tablet (of 500 mg) Capsule Oral t.i.d. PRN, Aspirin 1 (325 mg) Tablet Oral daily, CeleBREX 1 Capsule (of 200 mg) Oral b.i.d., Clopidogrel Bisulfate 1 Tablet (of 75 mg) Oral daily, Cyclobenzaprine HCl 1 Tablet (of 10 mg) Oral t.i.d., Enalapril Maleate 1 Tablet (of 5 mg) Oral daily, HumaLOG 15 Units (of 100 Units/mL) Subcutaneous t.i.d. PRN, Ibuprofen 3 - 4 Capsule (of 200 mg) Oral PRN, Isosorbide Mononitrate ER 1 Tablet (of 30 mg) Tablet SR 24 HR Oral daily, Jardiance 1 Tablet (of 10 mg) Oral daily, Lipitor 1 Tablet (of 20 mg) Oral daily, Lyrica 1 Capsule (of 100 mg) Oral t.i.d. PRN, Metoprolol Succinate ER 1 Tablet (of 25 mg) Tablet SR 24 HR Oral b.i.d., Nitroglycerin 1 Tablet (of 0.4 mg) Tablet, sublingual Sublingual PRN, OxyCODONE HCl 1 Tablet (of 15 mg) Oral 5x/d, Tresiba FlexTouch 1 (56 Units) Subcutaneous at bedtime Allergies: adhesive tape, Morphine Sulfate, and skin glue. Review of Systems: Review of Systems is not available for this patient. Vital Signs: Performed on Mar 29, 2021 14:17 Height - 64.00 in Weight - 215.8 lbs (LOW) BSA - 2.02 sq.m BMI - 37.04 (HIGH) Temperature - 97.4 F (LOW) Pulse - 89 /min Respiration - 20 /min BP - 95/61 mm(hg) O2 Sat - 94 % (LOW) Pain - 6 Fatigue - 7 Performance Status: 0 - Fully active, able to carry on all predisease activities without restrictions. (ECOG) Physical Examination: ENMT - No mouth sores, no thrush, no jaundice, Respiratory - Lungs are clear to auscultation, Cardiovascular - Regular rate and rhythm of heart, Abdomen - Soft, bowel sounds present, Extremities - No visible edema. Lab/Imaging: Most recent lab results are not available for this patient. Impression: Polycythemia of uncertain etiology secondary versus primary most likely secondary to hypoxia due to chronic smoking/emphysema/sleep apnea, although patient use CPAP machine so it could be noncompliance or inappropriate CPAP setting. Or she will have primary polycythemia vera but less likely. JAK2 mutation checked on 05/08/2018 was not detected and erythropoietin level was 4 CALR mutation and MPL mutation was checked on 07/14/2018 was not detected Chronic/heavy smoker 1 pack per day for the last 30 years Emphysema Sleep apnea on CPAP machine Pulse oximetry done on 05/01/2017 showed cumulative minute of PO2 less than 88% were 3.2 minutes and she did not qualify for Medicaid coverage as a requirement is more than 5 minutes but she did have 37 events of desaturation and about 6 events per hour Left-sided neck/shoulder pain MRI scan C-spine done on 07/15/2017 showed posterior disc bulging at C4/C5 and especially C5 and 6 associated with mild anterior surface spinal cord impingement. Because of progressive symptom including headaches and heaviness and progressive secondary polycythemia e.g. for hemoglobin 17.5 g and hematocrit 50, she was started on phlebotomy with 500 mL on 01/01/2019 and goal is to get hematocrit close to 45 Plan: Discussed with patient regarding her labs white blood count 10.5 hemoglobin 14.2 hematocrit 43.5 platelets 251,000 Clinically, patient doing well with no new signs symptoms her hematocrit continue to improve, patient is not smoking anymore, will continue to monitor and as for generalized weakness and fatigue is concerned probably multifactorial including recent Covid infection, patient is following with PMD on regular basis and we will see her back in 2 months with CBC, patient was advised to continue with daily aspirin and maintain hydration Signed By: Colton Wooten M.D. <<Signature on File>>
== END 2021-03-29 12:27 | disposition home or self-care (01) ==
LOC: ONCMED 12:28
PROVIDERS: PCP Internal Medicine; Visit Provider Internal Medicine Hematology & Oncology
DX: D75.1 Secondary polycythemia (principal); F17.210 Nicotine dependence, cigarettes, uncomplicated; J43.9 Emphysema, unspecified; G47.30 Sleep apnea, unspecified; M54.2 Cervicalgia; M25.512 Pain in left shoulder; G43.919 Migraine, unspecified, intractable, without status migrainosus; Z79.899 Other long term (current) drug therapy
CPT/HCPCS: 36415; 85025; 99214

== ENCOUNTER → 2021-05-31 09:42 | Outpatient (BNVA) | payer MEDICARE, MEDICAID, SELFPAY | PROVIDERS: PCP Internal Medicine; Visit Provider Anesthesiology | DX: G89.29 Other chronic pain (principal); M51.9 Unspecified thoracic, thoracolumbar and lumbosacral intervertebral disc disorder; M48.02 Spinal stenosis, cervical region; M50.020 Cervical disc disorder with myelopathy, mid-cervical region, unspecified level; M79.7 Fibromyalgia; Z79.891 Long term (current) use of opiate analgesic; Z87.891 Personal history of nicotine dependence | CPT/HCPCS: 99214 ==

== ENCOUNTER 2021-05-31 12:24 | Outpatient (CLI) | payer MEDICARE, MEDICAID, SELFPAY ==
[2021-05-31 13:31] LABS: Basophils % 0.4 %; Eosinophils % 0.3 %; Hematocrit 44.6 % (37.0-47.0); Hemoglobin 14.7 g/dL (11.5-15.3); Lymphocytes # 2.6 10^3/uL (0.8-4.8); Lymphocytes % 36.7 %; Mean Corpuscular Hemoglobin 29.5 pg (28.0-34.0); Mean Corpuscular Volume 89.6 fl (81-99); Mean Platelet Volume 9.9 fL (7.4-10.4); Monocytes # 0.4 10^3/uL (0.2-0.9); Monocytes % 5.6 %; Neutrophils # 4.02 10^3/uL (1.8-7.7); Neutrophils % 56.9 %; Nucleated Red Blood Cells % 0 %; Platelet Count 292 10^3/cmm (130-400); Red Blood Count 4.98 10^6/uL (4.1-5.3); Red Cell Distribution Width 12.2 % (12.1-15.1); White Blood Count 7.1 10^3/uL (4.0-10.0)
--- NOTE | 2021-06-01 16:27 | ONC FU_ITS ---
Dr. Wooten follow up note Patient: Emmanuelle Stanford Unit #: [id number]: [id number] Dicatated By: Colton Wooten M.D.Date of Visit:May 31, 2021 Onc Med Follow-up/Prog Note History of Present Illness: Ms Stanford is a 49 -year-old female with history of emphysema, sleep apnea on CPAP machine. She is also a heavy smoker-about a pack a day for the last 30 years. She was referred to the hematology clinic for evaluation of elevated hemoglobin/hematocrit. As per patient this was the first-time she was told about high red blood cells. Her labs from 11/22/2016 showed white blood count 6.6 hemoglobin 17.1 crit 48.1 (normal being 34-46.6). Recheck of her CBC reportted on 04/05/2017 white blood count 9.6 hemoglobin 16.7 hematocrit 47.1 platelets 262,000. Her repeat labs on 04/26/2017 showed white blood count 8 hemoglobin 18.2 crit 46.1 platelets 415,000 with a normal differential. She was dx with coronary artery disease underwent stent placement in 2018. She was placed on Plavix and aspirin. She has cut done her smoking significantly and also using CPAP machine diligently. spirometry done on09/24/2018 was a normal study. Her polycythemia has been managed with phlebotomies to maintain her HCT 45 or less. She tolerates the phlebotomies well. Came for follow-up, denies any specific complaints, no fever chills, no nausea or vomiting, no diarrhea or constipation, no headaches no blurred vision double vision, patient is using her CPAP machine as recommended, denies smoking, tolerating phlebotomies on as-needed basis well otherwise Medications: Acetaminophen 3 Tablet (of 500 mg) Capsule Oral t.i.d. PRN, Aspirin 1 (325 mg) Tablet Oral daily, CeleBREX 1 Capsule (of 200 mg) Oral b.i.d., Clopidogrel Bisulfate 1 Tablet (of 75 mg) Oral daily, Cyclobenzaprine HCl 1 Tablet (of 10 mg) Oral t.i.d., Enalapril Maleate 1 Tablet (of 5 mg) Oral daily, HumaLOG 15 Units (of 100 Units/mL) Subcutaneous t.i.d. PRN, Ibuprofen 3 - 4 Capsule (of 200 mg) Oral PRN, Isosorbide Mononitrate ER 1 Tablet (of 30 mg) Tablet SR 24 HR Oral daily, Jardiance 1 Tablet (of 10 mg) Oral daily, Lyrica 1 Capsule (of 100 mg) Oral t.i.d. PRN, Metoprolol Succinate ER 1 Tablet (of 25 mg) Tablet SR 24 HR Oral b.i.d., Nitroglycerin 1 Tablet (of 0.4 mg) Tablet, sublingual Sublingual PRN, OxyCODONE HCl 1 Tablet (of 15 mg) Oral 5x/d, Tresiba FlexTouch 1 (56 Units) Subcutaneous at bedtime Allergies: adhesive tape, Morphine Sulfate, and skin glue. Review of Systems: Review of Systems is not available for this patient. Vital Signs: Performed on May 31, 2021 14:43 Height - 64.00 in Weight - 218.0 lbs (HIGH) BSA - 2.03 sq.m BMI - 37.42 (HIGH) Temperature - 97.0 F (LOW) Pulse - 82 /min Respiration - 16 /min BP - 100/60 mm(hg) O2 Sat - 96 % Pain - 6 Fatigue - 8 Performance Status: 0 - Fully active, able to carry on all predisease activities without restrictions. (ECOG) Physical Examination: ENMT - No mouth sores, no thrush, no jaundice, Respiratory - Lungs are clear to auscultation, Cardiovascular - Regular rate and rhythm of heart, Abdomen - Soft, bowel sounds present, Extremities - No visible edema. Lab/Imaging: Most recent lab results are not available for this patient. Impression: Polycythemia of uncertain etiology secondary versus primary most likely secondary to hypoxia due to chronic smoking/emphysema/sleep apnea, although patient use CPAP machine so it could be noncompliance or inappropriate CPAP setting. Or she will have primary polycythemia vera but less likely. JAK2 mutation checked on 05/08/2018 was not detected and erythropoietin level was 4 CALR mutation and MPL mutation was checked on 07/14/2018 was not detected Chronic/heavy smoker 1 pack per day for the last 30 years Emphysema Sleep apnea on CPAP machine Pulse oximetry done on 05/01/2017 showed cumulative minute of PO2 less than 88% were 3.2 minutes and she did not qualify for Medicaid coverage as a requirement is more than 5 minutes but she did have 37 events of desaturation and about 6 events per hour Left-sided neck/shoulder pain MRI scan C-spine done on 07/15/2017 showed posterior disc bulging at C4/C5 and especially C5 and 6 associated with mild anterior surface spinal cord impingement. Because of progressive symptom including headaches and heaviness and progressive secondary polycythemia e.g. for hemoglobin 17.5 g and hematocrit 50, she was started on phlebotomy with 500 mL on 01/01/2019 and goal is to get hematocrit close to 45 Plan: Discussed with patient regarding her labs white blood count 7.1 hemoglobin 14.7 hematocrit 44.6 platelets 292,000 Clinically, patient doing well with no new signs symptoms, she is using her CPAP machine as recommended and denies smoking but she has history of chronic smoking. And her follow-up labs shows hematocrit in desirable range, e.g. less than 50, will continue to monitor and she will return to clinic in 3 months with CBC, patient was encouraged to continue to use her CPAP machine as recommended Signed By: Colton Wooten M.D. <<Signature on File>>
== END 2021-05-31 12:25 | disposition home or self-care (01) ==
PROVIDERS: PCP Internal Medicine; Visit Provider Internal Medicine Hematology & Oncology
DX: D75.1 Secondary polycythemia (principal); R09.02 Hypoxemia; F17.210 Nicotine dependence, cigarettes, uncomplicated; J43.9 Emphysema, unspecified; G47.30 Sleep apnea, unspecified; M54.2 Cervicalgia; M25.512 Pain in left shoulder; R51.9 Headache, unspecified; Z79.899 Other long term (current) drug therapy
CPT/HCPCS: 36415; 85025; 99214

== ENCOUNTER 2021-07-19 10:00 | Outpatient (CLI) | payer MEDICARE, MEDICAID, SELFPAY ==
--- NOTE | 2021-07-19 10:17 | FL_ITS ---
WS: [id number] Exam: FL barium swallow [id number] Date/Time of Exam: 07/19/2021 10:25 AM Reason For Exam: DYSPHAGIA Fluoroscopy time: 1.8 minutes Swallowing function at the level of oropharynx was normal. No aspiration was seen. The esophagus is s mooth in contour with normal motility. No sign of esophageal stricture or mass. No gastroesophageal r eflux noted. No hiatal hernia. FL/FL barium swallow [id number] IMPRESSION: 1. No evidence of esophageal mass, stricture or motility disorder. No reflux. N o hiatal hernia.
== END 2021-07-19 10:01 | disposition home or self-care (01) ==
LOC: RAD 10:09
PROVIDERS: PCP Internal Medicine; Visit Provider Internal Medicine
DX: R13.10 Dysphagia, unspecified (principal)
CPT/HCPCS: 74220

== ENCOUNTER → 2021-08-17 13:13 | Outpatient (BNVA) | payer MEDICARE, MEDICAID, SELFPAY | PROVIDERS: PCP Internal Medicine; Visit Provider Internal Medicine | DX: E11.40 Type 2 diabetes mellitus with diabetic neuropathy, unspecified (principal); Z79.4 Long term (current) use of insulin; Z87.891 Personal history of nicotine dependence | CPT/HCPCS: 99214 ==

== ENCOUNTER → 2021-09-28 10:56 | Outpatient (BNVA) | payer MEDICARE, MEDICAID, SELFPAY | PROVIDERS: PCP Internal Medicine; Visit Provider Internal Medicine | DX: E11.40 Type 2 diabetes mellitus with diabetic neuropathy, unspecified (principal); E78.5 Hyperlipidemia, unspecified; Z46.81 Encounter for fitting and adjustment of insulin pump; Z87.891 Personal history of nicotine dependence; Z79.4 Long term (current) use of insulin | CPT/HCPCS: 99214 ==

== ENCOUNTER → 2021-10-11 10:12 | Outpatient (BNVA) | payer MEDICARE, MEDICAID, SELFPAY | PROVIDERS: PCP Internal Medicine; Visit Provider Internal Medicine | DX: Z79.4 Long term (current) use of insulin (principal); Z87.891 Personal history of nicotine dependence; E78.5 Hyperlipidemia, unspecified; Z46.81 Encounter for fitting and adjustment of insulin pump; E11.40 Type 2 diabetes mellitus with diabetic neuropathy, unspecified | CPT/HCPCS: 99214 ==

== ENCOUNTER 2021-10-11 14:03 | Oncology outpatient (recurring) (ONCR) | payer MEDICARE, MEDICAID, SELFPAY ==
[2021-10-11 14:57] LABS: Basophils # 0.1 10^3/uL (0.0-0.1); Basophils % 0.9 %; Eosinophils # 0.1 10^3/uL (0.0-0.8); Eosinophils % 1.4 %; Hematocrit 46.4 % (37.0-47.0); Hemoglobin 15.4 g/dL (11.5-15.3); Lymphocytes # 2.8 10^3/uL (0.8-4.8); Lymphocytes % 35.4 %; Mean Corpuscular HGB Conc 33.2 g/dL (30.0-36.0); Mean Corpuscular Hemoglobin 29.6 pg (28.0-34.0); Mean Corpuscular Volume 89.2 fl (81-99); Mean Platelet Volume 9.6 fL (7.4-10.4); Monocytes # 0.6 10^3/uL (0.2-0.9); Monocytes % 7.2 %; Neutrophils # 4.28 10^3/uL (1.8-7.7); Neutrophils % 54.7 %; Nucleated Red Blood Cells % 0 %; Platelet Count 299 10^3/cmm (130-400); Red Cell Distribution Width 12.3 % (12.1-15.1); White Blood Count 7.8 10^3/uL (4.0-10.0)
== END 2021-10-19 23:59 | disposition home or self-care (01) ==
PROVIDERS: PCP Internal Medicine; Visit Provider Internal Medicine Hematology & Oncology
DX: D75.1 Secondary polycythemia (principal); J44.9 Chronic obstructive pulmonary disease, unspecified; G47.30 Sleep apnea, unspecified; F17.211 Nicotine dependence, cigarettes, in remission; E66.01 Morbid (severe) obesity due to excess calories; Z68.39 Body mass index [BMI] 39.0-39.9, adult; Z79.899 Other long term (current) drug therapy
CPT/HCPCS: 85025; 99214

== ENCOUNTER 2021-10-26 13:31 | Outpatient (CLI) | payer MEDICARE, MEDICAID, SELFPAY ==
--- NOTE | 2021-10-26 13:46 | MM_ITS ---
WS: [id number] BILATERAL 3D TOMOSYNTHESIS DIGITAL SCREENING MAMMOGRAPHY WITH CAD CLINICAL INFORMATION: SCREENING HISTORY: Screening mammogram. LEFT breast soreness COMPARISON: December 16, 2020 TECHNIQUE: Bilateral CC and MLO views. FINDINGS: Scattered fibroglandular densities bilaterally. Incidental punctate and lucent centered calcification s. No suspicious focal mass, asymmetry, calcifications, or architectural distortion. No evidence of m alignancy. MM/[place] [id number] IMPRESSION: BI-RADS: 2-Benign FOLLOW UP: 1 Year Follow-up Recommend return to annual screening mammography.
== END 2021-10-26 13:32 | disposition home or self-care (01) ==
LOC: RAD 13:32
PROVIDERS: PCP Internal Medicine; Visit Provider Internal Medicine
DX: Z12.31 Encounter for screening mammogram for malignant neoplasm of breast (principal)
CPT/HCPCS: 77063; 77067

== ENCOUNTER → 2021-11-28 14:59 | Outpatient (BNVA) | payer MEDICARE, MEDICAID, SELFPAY | PROVIDERS: PCP Internal Medicine; Visit Provider Internal Medicine | DX: Z46.81 Encounter for fitting and adjustment of insulin pump (principal); E11.59 Type 2 diabetes mellitus with other circulatory complications; E11.40 Type 2 diabetes mellitus with diabetic neuropathy, unspecified; E78.5 Hyperlipidemia, unspecified; I25.10 Atherosclerotic heart disease of native coronary artery without angina pectoris; Z68.41 Body mass index [BMI] 40.0-44.9, adult; E66.01 Morbid (severe) obesity due to excess calories; Z87.891 Personal history of nicotine dependence; Z79.4 Long term (current) use of insulin | CPT/HCPCS: 99215 ==

== ENCOUNTER → 2021-12-18 12:52 | Outpatient (BNVA) | payer MEDICARE, MEDICAID, SELFPAY | PROVIDERS: PCP Internal Medicine; Visit Provider Internal Medicine Cardiovascular Disease | DX: I25.10 Atherosclerotic heart disease of native coronary artery without angina pectoris (principal); E11.59 Type 2 diabetes mellitus with other circulatory complications; Z79.4 Long term (current) use of insulin; D75.1 Secondary polycythemia; E78.5 Hyperlipidemia, unspecified; E66.01 Morbid (severe) obesity due to excess calories; Z68.41 Body mass index [BMI] 40.0-44.9, adult; M48.02 Spinal stenosis, cervical region; G99.2 Myelopathy in diseases classified elsewhere; I10 Essential (primary) hypertension; G47.33 Obstructive sleep apnea (adult) (pediatric); Z87.891 Personal history of nicotine dependence | CPT/HCPCS: 99213; 99214 ==

== ENCOUNTER 2022-01-17 13:36 | Oncology outpatient (recurring) (ONCR) | payer MEDICARE, MEDICAID, SELFPAY ==
[2022-01-17 14:15] LABS: Basophils % 0.5 %; Eosinophils # 0.1 10^3/uL (0.0-0.8); Eosinophils % 1.7 %; Hematocrit 43.7 % (37.0-47.0); Hemoglobin 14.3 g/dL (11.5-15.3); Lymphocytes # 2.9 10^3/uL (0.8-4.8); Lymphocytes % 38.2 %; Mean Corpuscular HGB Conc 32.7 g/dL (30.0-36.0); Mean Corpuscular Hemoglobin 29.8 pg (28.0-34.0); Mean Platelet Volume 9.2 fL (7.4-10.4); Monocytes # 0.6 10^3/uL (0.2-0.9); Monocytes % 7.4 %; Neutrophils # 3.88 10^3/uL (1.8-7.7); Neutrophils % 51.9 %; Nucleated Red Blood Cells % 0 %; Platelet Count 297 10^3/cmm (130-400); Red Cell Distribution Width 12.6 % (12.1-15.1); White Blood Count 7.5 10^3/uL (4.0-10.0)
== END 2022-01-19 23:59 | disposition home or self-care (01) ==
PROVIDERS: PCP Internal Medicine; Visit Provider Internal Medicine Hematology & Oncology
DX: D75.1 Secondary polycythemia (principal); Z87.891 Personal history of nicotine dependence; J44.9 Chronic obstructive pulmonary disease, unspecified; G47.30 Sleep apnea, unspecified; E66.01 Morbid (severe) obesity due to excess calories; Z68.39 Body mass index [BMI] 39.0-39.9, adult
CPT/HCPCS: 36415; 85025; 99214

== ENCOUNTER → 2022-01-30 08:02 | Outpatient (BNVA) | payer MEDICARE, MEDICAID, SELFPAY | PROVIDERS: PCP Internal Medicine; Visit Provider Internal Medicine | DX: Z46.81 Encounter for fitting and adjustment of insulin pump (principal); E11.40 Type 2 diabetes mellitus with diabetic neuropathy, unspecified; E11.59 Type 2 diabetes mellitus with other circulatory complications; E78.5 Hyperlipidemia, unspecified; I25.10 Atherosclerotic heart disease of native coronary artery without angina pectoris; E66.01 Morbid (severe) obesity due to excess calories; Z68.39 Body mass index [BMI] 39.0-39.9, adult; F17.200 Nicotine dependence, unspecified, uncomplicated; Z79.4 Long term (current) use of insulin | CPT/HCPCS: 99214 ==

== ENCOUNTER 2022-03-16 12:35 | Outpatient (CLI) | payer MEDICARE, MEDICAID, SELFPAY ==
--- NOTE | 2022-03-16 12:42 | XR_ITS ---
WS: [id number] SCREENING DEXA SCAN [employer] CLINICAL INFORMATION: ASYMPTOMATIC POSTMENOPAUSAL COMPARISON: March 10, 2020 FINDINGS: The L1-L4 bone mineral density measures 1.192 g/cm2. This corresponds to a T score score of 0.1 and Z score of -0.5. Left femoral neck bone mineral density measures 1.159 g/cm2. This corresponds to a T score of 1.2 and Z score of 0.9. Right femoral neck bone mineral density measures 1.123 g/cm2. This corresponds to a T score 0.9of and Z score of 0.6. Mean femoral neck bone mineral density measures 1.141 g/cm2. This corresponds to a T score of 1.1 and Z score of 0.8. XR/XR DEXA axial skeleton* [id number] IMPRESSION: Normal bone mineralization. Patient's FRAX calculated 10 year probability for major osteoporotic fracture i s 4.7 % and osteoporotic hip fracture is 0.1%. Bone mineral density in the lumbar spine has decreased -3.6% since 2019. Bone mineral density in the femoral necks decreased -2.5% since 2019
== END 2022-03-16 12:36 | disposition home or self-care (01) ==
PROVIDERS: PCP Internal Medicine; Visit Provider Internal Medicine
DX: Z78.0 Asymptomatic menopausal state (principal)
CPT/HCPCS: 77080

== ENCOUNTER → 2022-06-06 13:20 | Outpatient (BNVA) | payer MEDICARE, MEDICAID, SELFPAY | PROVIDERS: PCP Internal Medicine; Visit Provider Internal Medicine | DX: E11.40 Type 2 diabetes mellitus with diabetic neuropathy, unspecified (principal); E11.59 Type 2 diabetes mellitus with other circulatory complications; E78.5 Hyperlipidemia, unspecified; I25.10 Atherosclerotic heart disease of native coronary artery without angina pectoris; Z46.81 Encounter for fitting and adjustment of insulin pump; E66.01 Morbid (severe) obesity due to excess calories; Z79.4 Long term (current) use of insulin; Z68.38 Body mass index [BMI] 38.0-38.9, adult | CPT/HCPCS: 99214 ==

== ENCOUNTER → 2022-06-19 13:51 | Outpatient (BNVA) | payer MEDICARE, MEDICAID, SELFPAY | PROVIDERS: PCP Internal Medicine; Visit Provider Internal Medicine | DX: I25.10 Atherosclerotic heart disease of native coronary artery without angina pectoris (principal); E11.59 Type 2 diabetes mellitus with other circulatory complications; Z79.4 Long term (current) use of insulin; D75.1 Secondary polycythemia; E78.5 Hyperlipidemia, unspecified; E66.01 Morbid (severe) obesity due to excess calories; Z68.37 Body mass index [BMI] 37.0-37.9, adult; M48.02 Spinal stenosis, cervical region; G99.2 Myelopathy in diseases classified elsewhere; I10 Essential (primary) hypertension; G47.33 Obstructive sleep apnea (adult) (pediatric); F17.200 Nicotine dependence, unspecified, uncomplicated; Z79.82 Long term (current) use of aspirin | CPT/HCPCS: 99214 ==

== ENCOUNTER 2022-07-20 08:05 | Outpatient (CLI) | payer MEDICARE, MEDICAID, SELFPAY ==
--- NOTE | 2022-07-20 08:34 | US_ITS ---
WS: [id number] THYROID ULTRASOUND HISTORY: NONTOXIC MULTINODULAR GOITER COMPARISON: 06/16/2020 Right lobe: 1.5 cm x 1.8 cm x 5.3 cm (w x ap x l). Volume: 7.4 cm3. Normal size and echotexture. No significant are dominant nodules are present. Previously described esteban bcentimeter hypoechoic cortical nodule is not identified. Left lobe: 1.8 cm x 1.6 cm x 5.3 cm (w x ap x l). Volume: 7.8 cm3. Normal size and echotexture. No significant or dominant nodules are present. Previously described hyp oechoic nodule is not identified. Isthmus: 0.3 cm. US/US thyroid [id number] IMPRESSION: 1. Unremarkable thyroid ultrasound. No suspicious masses identified. 2. No thyroid nodules are identified today.
== END 2022-07-20 08:06 | disposition home or self-care (01) ==
PROVIDERS: PCP Internal Medicine; Visit Provider Internal Medicine
DX: E04.2 Nontoxic multinodular goiter (principal)
CPT/HCPCS: 76536

== ENCOUNTER → 2022-09-05 13:26 | Outpatient (BNVA) | payer MEDICARE, MEDICAID, SELFPAY | PROVIDERS: PCP Internal Medicine; Visit Provider Internal Medicine | DX: Z46.81 Encounter for fitting and adjustment of insulin pump (principal); E11.40 Type 2 diabetes mellitus with diabetic neuropathy, unspecified; E11.59 Type 2 diabetes mellitus with other circulatory complications; E78.5 Hyperlipidemia, unspecified; I25.10 Atherosclerotic heart disease of native coronary artery without angina pectoris; E66.01 Morbid (severe) obesity due to excess calories; Z68.38 Body mass index [BMI] 38.0-38.9, adult; Z79.4 Long term (current) use of insulin | CPT/HCPCS: 99214 ==

== ENCOUNTER 2022-09-28 23:19 | Emergency (ER) | payer MEDICARE, MEDICAID, SELFPAY ==
[2022-09-28 23:23] VITALS: BP 150/82; PULSE 84; RESP 15; TEMP 36.5; O2SAT 97
[2022-09-28 23:34] VITALS: BP 168/99; PULSE 86; RESP 16; O2SAT 97
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
[2022-09-28] MEDS: azithromycin 250 mg Tablet 1000 MG PO (23:48)
[2022-09-28] MEDS: cefTRIAXone 500 MG in water for injection-sterile 1 ML IM (23:49)
== END 2022-09-28 23:55 | disposition home or self-care (01) ==
PROVIDERS: Emergency Provider Emergency Medicine; PCP Internal Medicine
DX: S20.02XA Contusion of left breast, initial encounter (principal); S20.01XA Contusion of right breast, initial encounter; T74.21XA Adult sexual abuse, confirmed, initial encounter; N89.8 Other specified noninflammatory disorders of vagina; Z79.82 Long term (current) use of aspirin; Z79.02 Long term (current) use of antithrombotics/antiplatelets; Z79.4 Long term (current) use of insulin; S20.222A Contusion of left back wall of thorax, initial encounter; F17.210 Nicotine dependence, cigarettes, uncomplicated; J44.9 Chronic obstructive pulmonary disease, unspecified; E11.9 Type 2 diabetes mellitus without complications; E78.5 Hyperlipidemia, unspecified; Y07.9 Unspecified perpetrator of maltreatment and neglect
CPT/HCPCS: 87210; 87491; 87591; 96372; 99284; J0696; Q0144

== ENCOUNTER 2022-11-05 09:28 | Outpatient (CLI) | payer MEDICARE, MEDICAID, SELFPAY ==
--- NOTE | 2022-11-05 09:37 | MM_ITS ---
WS: [id number] BILATERAL 3D TOMOSYNTHESIS DIGITAL DIAGNOSTIC MAMMOGRAPHY WITH CAD CLINICAL INFORMATION: LT BREAST LUMPS HISTORY: Palpable lumps LEFT breast. COMPARISON: 2021 TECHNIQUE: Bilateral CC, MLO, and ML views. FINDINGS: Scattered fibroglandular densities bilaterally. Palpable markers LEFT breast. Small asymmetric densit y in the 12:00 position near the areola. Ultrasound of these areas is pending. RIGHT breast is unremarkable. ULTRASOUND BREAST LEFT TECHNIQUE: Ultrasound left breast focused area of concern. CLINICAL INFORMATION: LT BREAST LUMPS COMPARISON: October 26, 2021 FINDINGS: Ultrasound LEFT breast 12:00 position 4 cm from the nipple and 2:00 position 4 cm from the nipple in the areas of concern. At the 12:00 position, is a complex cystic lesion, with peripheral soft tissue nodularity. This lesio n is indeterminant and recommend further evaluation with ultrasound-guided biopsy/aspiration. Complex lesion measures 1.7 x 1.9 x 1.1 cm At the 2:00 position 4 cm from the nipple is evidence of a previously collapsed cyst. In addition, sl ightly complex cyst with a small amount of internal debris and slight nodularity at the 2:00 position 4 cm from the nipple measuring 1.1 x 1.5 cm. MM/[place] [id number] IMPRESSION: BI-RADS: 4-Suspicious Finding-Biopsy Should Be Considered FOLLOW UP: US Guided Biopsy Recommended Recommend ultrasound-guided biopsy of the complex nodular cystic lesion at the 12:00 position
== END 2022-11-05 09:29 | disposition home or self-care (01) ==
PROVIDERS: PCP Internal Medicine; Visit Provider Internal Medicine
DX: N60.02 Solitary cyst of left breast (principal)
CPT/HCPCS: 76642; 77062; G0279

== ENCOUNTER 2022-11-14 12:34 | Outpatient (CLI) | payer MEDICARE, MEDICAID, SELFPAY ==
--- NOTE | 2022-11-14 | US_ITS ---
WS: [id number] ULTRASOUND-GUIDED LEFT BREAST BIOPSY x 2 Ultrasound-guided LEFT breast COMPLEX CYST ASPIRATION HISTORY: Abnormal mammographic and ultrasound findings and clinical findings LEFT breast. COMPARISON: 11/05/2022 Procedure, risks and complications are explained to the patient. Medications are reviewed. Consent is obtained. The mass in the LEFT breast is localized with ultrasound. Complex cystic mass localizes to 12:00 4 cm from the nipple. There is a large component of fluid with thick wall and nodularity. Cystic componen t was also aspirated and sent for culture and sensitivity. Skin is cleansed with ChloraPrep and anest hetized with 1% buffered lidocaine. Small dermatome is made. Under sterile conditions mass is biopsie d with a 14-gauge Achieve needle. Multiple core biopsies are performed. Material placed in formalin a nd sent to pathology for review. No complications encountered. Aspirate is placed in a sterile contai ner and sent for culture and sensitivity. The aspirate was thick yellow clear material. Additional biopsy was performed of the area of soft tissue thickening which is palpable in the LEFT b reast at 2:00. Thick walled area of increased echogenicity. There is mild change in echogenicity cent rally. This mass was biopsied with 14-gauge needle and placed in formalin. Biopsy clip was also place d within this mass. Breast tissue marker (Bard ultrasound enhanced ribbon): Single clip was placed within the lesion at 1 2:00, 4 cm from the nipple. Additional biopsy clip in the more ill-defined mass at 2:00. Patient left the radiology suite with no complications. Patient is instructed to return to [facility] [place] [facility] with any concerns. US/[place] [id number] IMPRESSION: 1. Uncomplicated core needle biopsy LEFT breast mass at 12:00. PATHOLOGY: Benign fibroadipose tissue with fat necrosis. Acute and chronic infl ammation with cyst contents. Negative for malignancy. RECOMMENDATION: Diagnostic LEFT mammogram 6 months. Possible ultrasound. 2. Uncomplicated core needle biopsy LEFT breast mass at 2:00. PATHOLOGY: Benign fibroadipose tissue with fat necrosis. Acute and chronic infl ammation with cyst contents. Negative for malignancy. RECOMMENDATION: Diagnostic LEFT mammogram 6 months. Possible ultrasound. 3. Aspirate material from the cystic mass at 12:00 sent for culture and sensiti vity.
--- NOTE | 2022-11-14 | US_ITS ---
WS: [id number] ULTRASOUND-GUIDED LEFT BREAST BIOPSY x 2 Ultrasound-guided LEFT breast COMPLEX CYST ASPIRATION HISTORY: Abnormal mammographic and ultrasound findings and clinical findings LEFT breast. COMPARISON: 11/05/2022 Procedure, risks and complications are explained to the patient. Medications are reviewed. Consent is obtained. The mass in the LEFT breast is localized with ultrasound. Complex cystic mass localizes to 12:00 4 cm from the nipple. There is a large component of fluid with thick wall and nodularity. Cystic componen t was also aspirated and sent for culture and sensitivity. Skin is cleansed with ChloraPrep and anest hetized with 1% buffered lidocaine. Small dermatome is made. Under sterile conditions mass is biopsie d with a 14-gauge Achieve needle. Multiple core biopsies are performed. Material placed in formalin a nd sent to pathology for review. No complications encountered. Aspirate is placed in a sterile contai ner and sent for culture and sensitivity. The aspirate was thick yellow clear material. Additional biopsy was performed of the area of soft tissue thickening which is palpable in the LEFT b reast at 2:00. Thick walled area of increased echogenicity. There is mild change in echogenicity cent rally. This mass was biopsied with 14-gauge needle and placed in formalin. Biopsy clip was also place d within this mass. Breast tissue marker (Bard ultrasound enhanced ribbon): Single clip was placed within the lesion at 1 2:00, 4 cm from the nipple. Additional biopsy clip in the more ill-defined mass at 2:00. Patient left the radiology suite with no complications. Patient is instructed to return to [facility] [place] or [facility] with any concerns. US/US guide [facility] asp a/c/h [id number] IMPRESSION: 1. Uncomplicated core needle biopsy LEFT breast mass at 12:00. PATHOLOGY: Benign fibroadipose tissue with fat necrosis. Acute and chronic infl ammation with cyst contents. Negative for malignancy. RECOMMENDATION: Diagnostic LEFT mammogram 6 months. Possible ultrasound. 2. Uncomplicated core needle biopsy LEFT breast mass at 2:00. PATHOLOGY: Benign fibroadipose tissue with fat necrosis. Acute and chronic infl ammation with cyst contents. Negative for malignancy. RECOMMENDATION: Diagnostic LEFT mammogram 6 months. Possible ultrasound. 3. Aspirate material from the cystic mass at 12:00 sent for culture and sensiti vity.
--- NOTE | 2022-11-14 12:54 | US_ITS ---
WS: [id number] ULTRASOUND-GUIDED LEFT BREAST BIOPSY x 2 Ultrasound-guided LEFT breast COMPLEX CYST ASPIRATION HISTORY: Abnormal mammographic and ultrasound findings and clinical findings LEFT breast. COMPARISON: 11/05/2022 Procedure, risks and complications are explained to the patient. Medications are reviewed. Consent is obtained. The mass in the LEFT breast is localized with ultrasound. Complex cystic mass localizes to 12:00 4 cm from the nipple. There is a large component of fluid with thick wall and nodularity. Cystic componen t was also aspirated and sent for culture and sensitivity. Skin is cleansed with ChloraPrep and anest hetized with 1% buffered lidocaine. Small dermatome is made. Under sterile conditions mass is biopsie d with a 14-gauge Achieve needle. Multiple core biopsies are performed. Material placed in formalin a nd sent to pathology for review. No complications encountered. Aspirate is placed in a sterile contai ner and sent for culture and sensitivity. The aspirate was thick yellow clear material. Additional biopsy was performed of the area of soft tissue thickening which is palpable in the LEFT b reast at 2:00. Thick walled area of increased echogenicity. There is mild change in echogenicity cent rally. This mass was biopsied with 14-gauge needle and placed in formalin. Biopsy clip was also place d within this mass. Breast tissue marker (Bard ultrasound enhanced ribbon): Single clip was placed within the lesion at 1 2:00, 4 cm from the nipple. Additional biopsy clip in the more ill-defined mass at 2:00. Patient left the radiology suite with no complications. Patient is instructed to return to [facility] [place] or [facility] with any concerns. US/[place] [id number] IMPRESSION: 1. Uncomplicated core needle biopsy LEFT breast mass at 12:00. PATHOLOGY: Benign fibroadipose tissue with fat necrosis. Acute and chronic infl ammation with cyst contents. Negative for malignancy. RECOMMENDATION: Diagnostic LEFT mammogram 6 months. Possible ultrasound. 2. Uncomplicated core needle biopsy LEFT breast mass at 2:00. PATHOLOGY: Benign fibroadipose tissue with fat necrosis. Acute and chronic infl ammation with cyst contents. Negative for malignancy. RECOMMENDATION: Diagnostic LEFT mammogram 6 months. Possible ultrasound. 3. Aspirate material from the cystic mass at 12:00 sent for culture and sensiti vity.
== END 2022-11-14 12:35 | disposition home or self-care (01) ==
PROVIDERS: PCP Internal Medicine; Visit Provider Internal Medicine
DX: D24.2 Benign neoplasm of left breast (principal); N63.21 Unspecified lump in the left breast, upper outer quadrant; N60.22 Fibroadenosis of left breast; N64.1 Fat necrosis of breast; N60.02 Solitary cyst of left breast; N61.0 Mastitis without abscess
CPT/HCPCS: 10160; 19083; 19084; 76942; 87070; 87075; 87205; 88305

== ENCOUNTER 2022-11-22 13:25 | Outpatient (CLI) | payer MEDICARE, MEDICAID, SELFPAY ==
[2022-11-22 14:19] LABS: Alanine Aminotransferase 19 U/L (0-33); Albumin Level 4.5 g/dL (3.5-5.2); Alkaline Phosphatase 76 U/L (35-105); Anion Gap 15.8 (5-19); Aspartate Amino Transferase 20 U/L (0-32); Blood Urea Nitrogen 16 mg/dL (6-20); Calcium 9.6 mg/dL (8.5-10.5); Carbon Dioxide 29 mmol/L (22-29); Chloride 98 mmol/L (98-107); Chol HDL Ratio 4.33 mg/dL (0.0-4.40); Cholesterol 173 mg/dL (0-200); Globulin 2.6 g/dL (1.3-4.6); Glomerular Filtration Rate 104.6 mL/min (90-130); Glucose 122 mg/dL (65-115); HDL Cholesterol 40 mg/dL (60-100); LDL Cholesterol Calculated 80 mg/dL (50-129); Osmolality Calculated 290 mOsm/kg (285-295); Potassium 3.8 mmol/L (3.5-5.1); Sodium 139 mmol/L (136-145); Total Bilirubin 0.3 mg/dL (0.15-1.2); Total Protein 7.1 g/dL (6.6-8.7); Triglycerides 267 mg/dL (0-150)
[2022-11-22 14:21] LABS: Estmated Average Glucose 151; Hemoglobin A1C 6.9 % (4.0-6.0)
[2022-11-22 14:21] LABS: Creatinine Urine, Random 45 mg/dL (28-217); Microalbum Creatinine Ratio Ur 22 mg/dL (0-20); Microalbumin Random Urine 1 ug/dL (0-20)
== END 2022-11-22 13:26 | disposition home or self-care (01) ==
LOC: LAB 13:28
PROVIDERS: PCP Internal Medicine; Visit Provider Internal Medicine
DX: E11.40 Type 2 diabetes mellitus with diabetic neuropathy, unspecified (principal); E11.59 Type 2 diabetes mellitus with other circulatory complications; E66.01 Morbid (severe) obesity due to excess calories; E78.5 Hyperlipidemia, unspecified; I25.10 Atherosclerotic heart disease of native coronary artery without angina pectoris; Z46.81 Encounter for fitting and adjustment of insulin pump; E11.9 Type 2 diabetes mellitus without complications
CPT/HCPCS: 36415; 80053; 80061; 82044; 83036

== ENCOUNTER → 2022-12-05 13:56 | Outpatient (BNVA) | payer MEDICARE, MEDICAID, SELFPAY | PROVIDERS: PCP Internal Medicine; Visit Provider Internal Medicine | DX: E78.5 Hyperlipidemia, unspecified; Z46.81 Encounter for fitting and adjustment of insulin pump; E11.59 Type 2 diabetes mellitus with other circulatory complications; I25.10 Atherosclerotic heart disease of native coronary artery without angina pectoris; E66.01 Morbid (severe) obesity due to excess calories; Z68.38 Body mass index [BMI] 38.0-38.9, adult; Z79.4 Long term (current) use of insulin; Z79.84 Long term (current) use of oral hypoglycemic drugs | CPT/HCPCS: 99214 ==

== ENCOUNTER → 2022-12-07 15:46 | Outpatient (BNVA) | payer MEDICARE, MEDICAID, SELFPAY | PROVIDERS: PCP Internal Medicine; Visit Provider Emergency Medicine | DX: S90.32XA Contusion of left foot, initial encounter (principal); X58.XXXA Exposure to other specified factors, initial encounter | CPT/HCPCS: 73630 ==

== ENCOUNTER 2022-12-08 11:08 | Emergency (ER) | payer MEDICARE, MEDICAID, SELFPAY ==
[2022-12-08 11:25] VITALS: BP 102/69; PULSE 79; RESP 15; TEMP 36.8; O2SAT 96
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
[2022-12-08] MEDS: ketorolac 60 mg/2 mL INJ 30 MG IM (13:34)
[2022-12-08] MEDS: tizanidine 4 mg Tablet PO (13:34)
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
--- NOTE | 2022-12-08 15:11 | PC.PHAR ---
pt states she takes care of her own medications-pt states she is having surgery next week states the dr put some of her meds on hold-pt states the aspirin 325mg -plavix 75mg-celebrex 200mg - and ozempic 2mg is all on hold-pt states she uses lantus solostar 20 units qam rx filled as 50 units daily-pt states she now uses the humalog kwikpen 100 units/ml ss 5-15 units tid rx filled for 20 units tid-notes are made in the pharmacy comments
[2022-12-08 16:04] VITALS: BP 102/69; PULSE 79; RESP 15; O2SAT 96
== END 2022-12-08 15:55 | disposition home or self-care (01) ==
PROVIDERS: Emergency Provider Physician Assistant; PCP Internal Medicine
DX: S00.83XA Contusion of other part of head, initial encounter (principal); Y04.0XXA Assault by unarmed brawl or fight, initial encounter; S06.0X0A Concussion without loss of consciousness, initial encounter
CPT/HCPCS: 70450; 70486; 96372; 99284; J1885

== ENCOUNTER 2022-12-25 14:15 | Outpatient (CLI) | payer MEDICARE, MEDICAID, SELFPAY ==
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
== END 2022-12-25 14:16 | disposition home or self-care (01) ==
PROVIDERS: PCP Internal Medicine; Visit Provider Nurse Practitioner Family
DX: R22.0 Localized swelling, mass and lump, head (principal); Y09 Assault by unspecified means
CPT/HCPCS: 70140

== ENCOUNTER → 2023-04-16 10:49 | Outpatient (BNVA) | payer MEDICARE, MEDICAID, SELFPAY | PROVIDERS: PCP Internal Medicine; Visit Provider Internal Medicine | DX: E78.5 Hyperlipidemia, unspecified; Z46.81 Encounter for fitting and adjustment of insulin pump; E11.59 Type 2 diabetes mellitus with other circulatory complications; I25.10 Atherosclerotic heart disease of native coronary artery without angina pectoris; E66.01 Morbid (severe) obesity due to excess calories; Z79.4 Long term (current) use of insulin; Z68.29 Body mass index [BMI] 29.0-29.9, adult; Z79.84 Long term (current) use of oral hypoglycemic drugs | CPT/HCPCS: 99214 ==

== ENCOUNTER → 2023-05-30 12:44 | Outpatient (BNVA) | payer MEDICARE, MEDICAID, SELFPAY | PROVIDERS: PCP Internal Medicine; Visit Provider Internal Medicine | DX: E11.59 Type 2 diabetes mellitus with other circulatory complications (principal); I25.10 Atherosclerotic heart disease of native coronary artery without angina pectoris; D75.1 Secondary polycythemia; E78.5 Hyperlipidemia, unspecified; E66.01 Morbid (severe) obesity due to excess calories; M48.02 Spinal stenosis, cervical region; G99.2 Myelopathy in diseases classified elsewhere; I10 Essential (primary) hypertension; G47.33 Obstructive sleep apnea (adult) (pediatric); Z68.28 Body mass index [BMI] 28.0-28.9, adult; F17.200 Nicotine dependence, unspecified, uncomplicated; Z79.4 Long term (current) use of insulin; Z96.41 Presence of insulin pump (external) (internal) | CPT/HCPCS: 99214 ==

== ENCOUNTER 2023-05-31 12:06 | Outpatient (CLI) | payer MEDICARE, MEDICAID, SELFPAY ==
[2023-05-31 12:56] LABS: Basophils # 0.1 10^3/uL (0.0-0.1); Basophils % 1.1 %; Eosinophils % 0.3 %; Hematocrit 44.7 % (36-47); Lymphocytes # 2.5 10^3/uL (0.8-4.8); Lymphocytes % 37.3 %; Mean Corpuscular HGB Conc 32.4 g/dL (30-55); Mean Corpuscular Hemoglobin 28.8 pg (27-33); Mean Corpuscular Volume 88.7 fl (85-98); Mean Platelet Volume 9.9 fL (7.4-10.4); Monocytes # 0.4 10^3/uL (0.2-0.9); Monocytes % 6.3 %; Neutrophils % 54.8 %; Nucleated Red Blood Cells % 0 %; Platelet Count 266 10^3/cmm (157-399); Red Blood Count 5.04 10^6/uL (3.85-5.65); Red Cell Distribution Width 12.9 % (12.1-15.1); White Blood Count 6.56 10^3/uL (3.29-11.43)
[2023-05-31 13:16] LABS: Alanine Aminotransferase 63 U/L (0-33); Albumin Level 4.3 g/dL (3.5-5.2); Alkaline Phosphatase 102 U/L (35-105); Anion Gap 12.8 (5-19); Aspartate Amino Transferase 65 U/L (0-32); Blood Urea Nitrogen 23 mg/dL (6-20); Calcium 9.4 mg/dL (8.5-10.5); Carbon Dioxide 29 mmol/L (22-29); Chloride 103 mmol/L (98-107); Ferritin 57 ng/mL (15-150); Globulin 2.5 g/dL (1.3-4.6); Glomerular Filtration Rate 129.1 mL/min (90-130); Glucose 104 mg/dL (65-115); Magnesium 2.2 mg/dL (1.7-2.3); Osmolality Calculated 296 mOsm/kg (285-295); Potassium 3.8 mmol/L (3.5-5.1); Sodium 141 mmol/L (136-145); Total Bilirubin 0.3 mg/dL (0.15-1.2); Total Protein 6.8 g/dL (6.6-8.7)
[2023-05-31 13:32] LABS: 25 Hydroxy Vitamin D 65 ng/mL (30-100); Vitamin B12 591 pg/mL (232-1245)
[2023-05-31 15:00] LABS: Folate Level > 20.0 ng/mL (4.8-37.3)
[2023-06-05 10:44] LABS: Vitamin A (Retinol) 72 mcg/dL (38-98)
== END 2023-05-31 12:07 | disposition home or self-care (01) ==
LOC: LAB 12:08
PROVIDERS: PCP Internal Medicine; Visit Provider Nurse Practitioner Family
DX: Z48.89 Encounter for other specified surgical aftercare (principal); E55.9 Vitamin D deficiency, unspecified; E11.42 Type 2 diabetes mellitus with diabetic polyneuropathy; E11.44 Type 2 diabetes mellitus with diabetic amyotrophy; E78.5 Hyperlipidemia, unspecified; E11.22 Type 2 diabetes mellitus with diabetic chronic kidney disease; I12.9 Hypertensive chronic kidney disease with stage 1 through stage 4 chronic kidney disease, or unspecified chronic kidney disease; N18.9 Chronic kidney disease, unspecified; G47.33 Obstructive sleep apnea (adult) (pediatric); Z90.49 Acquired absence of other specified parts of digestive tract; E66.3 Overweight; K90.9 Intestinal malabsorption, unspecified; K21.00 Gastro-esophageal reflux disease with esophagitis, without bleeding; Z68.29 Body mass index [BMI] 29.0-29.9, adult
CPT/HCPCS: 36415; 80053; 82306; 82607; 82728; 82746; 83735; 84590; 85025

== ENCOUNTER 2023-06-04 14:00 | Outpatient (CLI) | payer MEDICARE, MEDICAID, SELFPAY ==
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
== END 2023-06-04 14:01 | disposition home or self-care (01) ==
LOC: RAD 14:00
PROVIDERS: PCP Internal Medicine; Visit Provider Internal Medicine
DX: N60.02 Solitary cyst of left breast (principal); R92.322 Mammographic fibroglandular density, left breast
CPT/HCPCS: 76642; 77061; G0279

== ENCOUNTER → 2023-07-08 09:44 | Outpatient (BNVA) | payer MEDICARE, MEDICAID, SELFPAY | PROVIDERS: PCP Internal Medicine; Visit Provider Otolaryngology | DX: R04.0 Epistaxis (principal) | CPT/HCPCS: 99204 ==

== ENCOUNTER 2023-08-19 20:06 | Emergency (ER) | payer MEDICARE, MEDICAID, SELFPAY ==
[2023-08-19] VITALS (9 sets, daily range): BP systolic 99–124; BP diastolic 51–73; PULSE 102–111; RESP 11–22; TEMP 37.3–39.3; O2SAT 95–98; BMI 28.3
--- NOTE | 2023-08-19 20:15 | ECG_ITS ---
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 Measurements Intervals [place] Rate: 112 P: 34 SC: 136 QRS: 73 QRSD: 91 T: 62 QT: 295 QTc: 404 Interpretive Statements SINUS TACHYCARDIA LOW QRS VOLTAGE IN PRECORDIAL LEADS [QRS DEFLECTION < 1.0 mV IN CHEST LEADS] ANTEROSEPTAL MYOCARDIAL INFARCTION , OF INDETERMINATE AGE [40+ ms Q WAVE IN V1-V4] Compared to ECG 01/02/2018 06:14:16 Myocardial infarct finding now present Sinus rhythm no longer present Electronically Signed On 08-20-2023 17:28:51 CDT by Alf Cronin M.D. [id number]
--- NOTE | 2023-08-19 20:27 | XRR_ITS ---
PROCEDURE INFORMATION: Exam: XR Chest Exam date and time: 08/19/2023 8:31 PM Age: 52 years old Clinical indication: Cough; Additional info: Cough/congestion TECHNIQUE: Imaging protocol: Radiologic exam of the chest. Views: 1 view. COMPARISON: CT chest w con* [id number] 11/27/2019 9:06 AM FINDINGS: Lungs: Unremarkable. No consolidation. Pleural spaces: Unremarkable. No pleural effusion. No pneumothorax. Heart/Mediastinum: Unremarkable. No cardiomegaly. Bones/joints: Unremarkable. XR/XR chest 1V portable [id number] IMPRESSION: No acute findings.
[2023-08-19 21:01] LABS: Basophils % 0.4 %; Hematocrit 36.1 % (36-47); Lymphocytes # 4.1 10^3/uL (0.8-4.8); Lymphocytes % 42.3 %; Mean Corpuscular Hemoglobin 29.4 pg (27-33); Mean Corpuscular Volume 89.1 fl (85-98); Mean Platelet Volume 11.1 fL (7.4-10.4); Monocytes # 0.2 10^3/uL (0.2-0.9); Monocytes % 1.8 %; Neutrophils # 5.31 10^3/uL (1.8-7.7); Neutrophils % 55.1 %; Nucleated Red Blood Cells % 0 %; Platelet Count 199 10^3/cmm (157-399); Red Blood Count 4.05 10^6/uL (3.85-5.65); Red Cell Distribution Width 14.7 % (12.1-15.1); White Blood Count 9.63 10^3/uL (3.29-11.43)
[2023-08-19] MEDS: ketorolac 30 mg/mL INJ IVP (21:13)
[2023-08-19] MEDS: sodium chloride 0.9% 1,000 ML 999 ML IV (21:16)
[2023-08-19 21:24] LABS: Alanine Aminotransferase 132 U/L (0-33); Albumin Level 3.1 g/dL (3.5-5.2); Alkaline Phosphatase 613 U/L (35-105); Anion Gap 13.4 (5-19); Aspartate Amino Transferase 105 U/L (0-32); Blood Urea Nitrogen 13 mg/dL (6-20); Calcium 8.2 mg/dL (8.5-10.5); Carbon Dioxide 26 mmol/L (22-29); Chloride 96 mmol/L (98-107); Creatinine Clr Calc Pharmacy 155.2693; Globulin 3.1 g/dL (1.3-4.6); Glucose 157 mg/dL (65-115); Osmolality Calculated 277 mOsm/kg (285-295); Potassium 3.4 mmol/L (3.5-5.1); Sodium 132 mmol/L (136-145); Total Bilirubin 0.4 mg/dL (0.15-1.2); Total Protein 6.2 g/dL (6.6-8.7)
[2023-08-19 21:26] LABS: Lactic Sepsis W/Reflex 1.4 mmol/L (0.5-2.2)
[2023-08-19 21:31] LABS: Procalcitonin 0.27 ng/mL (0-0.5); Slide Review Slide Review Perform
--- NOTE | 2023-08-19 21:58 | CTR_ITS ---
PROCEDURE INFORMATION: Exam: CT Abdomen And Pelvis With Contrast Exam date and time: 08/19/2023 10:25 PM Age: 52 years old Clinical indication: Abdominal pain; Acute; Prior surgery; Surgery date: 6+ months; Surgery type: Hyst gb hernia gastric bypass; Additional info: Abd pain TECHNIQUE: Imaging protocol: Computed tomography of the abdomen and pelvis with contrast. Radiation optimization: All CT scans at this facility use at least one of these dose optimization techniques: automated exposure control; mA and/or kV adjustment per patient size (includes targeted exams where dose is matched to clinical indication); or iterative reconstruction. Contrast material: OMNI 350; Contrast volume: 100 ml; Contrast route: INTRAVENOUS (IV); COMPARISON: CT abdomen pelvis w con* [id number] 03/26/2017 4:53 PM RADIATION DOSE METRICS: Total DLP (mGy-cm): 747.51 FINDINGS: Lungs: Bibasilar atelectasis versus infiltrate. Pleural spaces: Trace bilateral pleural effusions. Coronary arteries: Coronary artery atherosclerotic calcifications. Liver: Hepatomegaly. Gallbladder and bile ducts: Cholecystectomy. Pancreas: Normal. No ductal dilation. Spleen: Normal. No splenomegaly. Adrenal glands: Normal. No mass. Kidneys and ureters: Bilateral renal cysts, negative for follow-up advised. Stomach and bowel: Prominent fluid in the small bowel without dilation may reflect an enteritis. Gastric surgical sutures. Appendix: No evidence of appendicitis. Intraperitoneal space: Unremarkable. No free air. No significant fluid collection. Vasculature: Unremarkable. No abdominal aortic aneurysm. Lymph nodes: Unremarkable. No enlarged lymph nodes. Urinary bladder: Unremarkable as visualized. Reproductive: Unremarkable as visualized. Bones/joints: Unremarkable. No acute fracture. Soft tissues: Lower ventral abdominal wall midline small to moderate fat containing hernia. CT/CT abdomen pelvis w con* [id number] IMPRESSION: 1. Prominent fluid in the small bowel without dilation may reflect an enteritis. 2. Lower ventral abdominal wall midline small to moderate fat containing hernia. 3. Hepatomegaly. 4. Trace bilateral pleural effusions. 5. Bibasilar atelectasis versus infiltrate. 6. Coronary artery atherosclerotic calcifications. 7. Cholecystectomy. 8. Gastric surgical sutures. 9. Bilateral renal cysts, negative for follow-up advised. COMMENTS: Consistent with the [employer]'s Incidental Findings Committee white paper (J Am Homero Radiol 2018): Any incidental renal lesion less than 1 cm or classified as too small to characterize, or any incidental cystic renal lesion characterized as simple-appearing, is likely benign. No follow-up imaging is recommended for these lesions per consensus recommendations based on imaging criteria.
[2023-08-19 22:21] LABS: Lipase 11 U/L (13-60)
[2023-08-19 22:24] LABS: Adenovirus Not Detected (NOT DETECT); Chlamydia Pneumoniae Not Detected (NOT DETECT); Coronavirus 229E,HKU1,NL63,OC4 Not Detected (NOT DETECT); Human Metapneumovirus Not Detected (NOT DETECT); Human Rhinovirus/Enterovirus Not Detected (NOT DETECT); Influenza A Not Detected (NOT DETECT); Influenza A H1 Not Detected (NOT DETECT); Influenza A H1-2009 Not Detected (NOT DETECT); Influenza A H3 Not Detected (NOT DETECT); Influenza B Not Detected (NOT DETECT); Mycoplasma Pneumoniae Not Detected (NOT DETECT); Parainfluenza Virus Type 1 Not Detected (NOT DETECT); Parainfluenza Virus Type 2 Not Detected (NOT DETECT); Parainfluenza Virus Type 3 Not Detected (NOT DETECT); Parainfluenza Virus Type 4 Not Detected (NOT DETECT); Respiratory Syncytial Virus A Not Detected (NOT DETECT); Respiratory Syncytial Virus B Not Detected (NOT DETECT); SARS-COV-2 Not Detected (NOT DETECT)
[2023-08-19] MEDS: iohexol 350 mg/mL 500 mL Btl (per mL) IV (22:32)
--- NOTE | 2023-08-19 22:43 | CTR_ITS ---
PROCEDURE INFORMATION: Exam: CT Head Without Contrast Exam date and time: 08/19/2023 10:56 PM Age: 52 years old Clinical indication: Pain; Headache TECHNIQUE: Imaging protocol: Computed tomography of the head without contrast. Radiation optimization: All CT scans at this facility use at least one of these dose optimization techniques: automated exposure control; mA and/or kV adjustment per patient size (includes targeted exams where dose is matched to clinical indication); or iterative reconstruction. COMPARISON: CT head wo con* [id number] 12/08/2022 1:58 PM RADIATION DOSE METRICS: Total DLP (mGy-cm): 1065 FINDINGS: Brain: Normal. No hemorrhage. Unremarkable white matter. No mass effect. Cerebral ventricles: No ventriculomegaly. Paranasal sinuses: Paranasal sinus opacifications. Mastoid air cells: Visualized mastoid air cells are well aerated. Bones/joints: Unremarkable. No acute fracture. Soft tissues: Unremarkable. CT/CT head wo con* [id number] IMPRESSION: 1. Negative for intracranial hemorrhage or mass effect. 2. Paranasal sinus opacifications.
--- NOTE | 2023-08-19 22:43 | W.ED.URI ---
Documented by User: Pranav Almanza MD 08/19/23 23:14 HPI - URI/Sore Throat General: Chief Complaint: Upper Respiratory Infection Stated Complaint: Chest Pain Time Seen by Provider: 08/19/23 20:26 History of Present Illness: 52-year-old female presents emergency department with complaints of headache. She states she also has upper respiratory congestion and feels like her neck is stiff on the right for the previous 2 weeks. The patient states she was seen by her PCP previously and prescribed Augmentin for concern of walking pneumonia. She states that she is had a fever up to 104. She states she feels generally ill. She states she has been alternating ibuprofen and Tylenol with relief intermittently of her temperature. She states she initially felt like she was getting better after the Augmentin but then started feeling worse. She does endorse a nonproductive cough. Associated symptoms: Reports fever(s) and headache(s) Review of Systems General: Reports: 10 or more systems reviewed and unremarkable except in HPI and below Const: Reports: fever(s), body aches, fatigue and malaise Resp: Reports: non-productive cough; Denies: dyspnea or wheezing Musc: Reports: neck pain and back pain Neuro: Reports: headache(s); Denies: difficulty walking or vertigo PFSH ED PFSH: Medical History Psychiatric care Acquired polycythemia Stenosis of cervical spine with myelopathy Neck pain of over 3 months duration Degeneration of cervical intervertebral disc Cervical spinal stenosis Cervical disc disorder with myelopathy of mid-cervical region Hx of fracture of finger right hand ring finger Encounter for long-term opiate analgesic use Opioid contract exists Polycythemia secondary to smoking Chest pain COPD (chronic obstructive pulmonary disease) Diabetes Obesity Essential hypertension Hyperlipidemia GUDELIA (obstructive sleep apnea) ASHD (arteriosclerotic heart disease) Chronic back pain Surgical History History of carpal tunnel surgery 12/24/19 w/Dr. Redd left wrist History of surgery on arm left arm reconstruction-hx of elbow fx and set wrong so ended up having to have surgery S/P cholecystectomy S/P angioplasty with stent S/P tonsillectomy S/P lumpectomy of breast S/P hernia repair S/P hysterectomy S/P section Family History Father Hypertension CAD (coronary artery disease) Mother Hypertension CAD (coronary artery disease) Alzheimer disease Daughter Diabetes Brother CAD (coronary artery disease) Social History Smoking and tobacco/nicotine status: current every day tobacco/nicotine user Quit status (tobacco/nicotine): has quit using Year quit tobacco: 2019 Second hand smoke exposure: No Alcohol intake: never Substance/Drug Use: never Household members: spouse Marital status: Current occupational status: disabled Physical Exam Narrative: EXAM NARRATIVE: Constitutional: the patient appears well nourished and with normal development. Vital signs reviewed as documented. No acute distress HENMT: Normocephalic, atraumatic. External ears normal appearance without drainage. Nose without drainage, normal appearance. Mucus membranes moist. Neck is supple, No jugular venous distension, trachea is midline, no appreciable carotid bruits. No lymphadenopathy. No meningeal signs. Flexion, extension and lateral rotation is without pain upon examination. Eyes: Pupils are equal, round, reactive to light and accommodation. No scleral icterus. Extra-ocular movement are intact. Thorax is symmetrical and with equal rise and fall with respirations. Resp: Lungs are clear to auscultation. No wheezes, rales, crackles or ronchi at present. Cardio: Sinus tachycardia. Positive S1, S2. No appreciable murmurs, rubs or gallops. GI: Abdominal exam reveals normal bowel sounds to all quadrants. No organomegaly. No obvious palpable masses noted. No hepatomegally appreciated. Soft, non-tender to palpation. Extremity: Extremities are non-edematous and both femoral and pedal pulses are 2+ and equal bilaterally. Moves all extremities well, sensation in all extremities. Neuro: Alert and oriented x4, person, place, time and situation. Cranial nerves II through XII are grossly intact, there is no focal neurological deficits that I can appreciate at present. Sensation intact to all extremities. 2-point discrimination intact. Light touch intact to all extremities. Motor strength in the upper and lower extremities are equal and bilateral 5/5. Psych: Cooperative, calm, normal thought process, appropriate judgment. Skin: No lesions, rashes. No gross abnormalities noted. Back: Symmetrical, no obvious deformity, No CVA tenderness Course Vital Signs: Vital signs: Vital Signs Temperature 99.1 F 08/19/23 21:41 Pulse Rate 109 H 08/19/23 21:37 Respiratory Rate 16 08/19/23 21:37 Blood Pressure 99/65 08/19/23 21:37 Pulse Oximetry 97 08/19/23 21:37 Oxygen Delivery Me thod Room Air 08/19/23 20:17 MDM - URI/Sore Throat Medical Decision Making Physical exam completed document I did obtain a CBC, CMP, lactic acid, respiratory panel, lipase, chest x-ray, CT head and CT abdomen pelvis. Her AST ALT and alkaline phosphatase were significantly elevated which prompted obtaining the CT scan of her abdomen pelvis. Given the patient's complaints of a throbbing generalized headache I did obtain a CT scan for evaluation. Patient's white blood cell count was normal at 9.63 her lactic acid was normal at 1.4 and procalcitonin was normal at 0.27. I have discussed the patient's case with the on-coming physician <Dr. Jenkins > and they have assumed care of the patient. We have discussed the current lab/radiographic results that have been resulted and the pending tests. Medical Records I reviewed the patient's medical records. Lab Data I reviewed the patient's lab results. 08/19/23 20:45 08/19/23 20:45 Radiology Impressions Chest X-Ray 08/19/23 20:27 IMPRESSION: No acute findings. Abdomen/Pelvis CT 08/19/23 21:58 IMPRESSION: 1. Prominent fluid in the small bowel without dilation may reflect an enteritis. 2. Lower ventral abdominal wall midline small to moderate fat containing hernia. 3. Hepatomegaly. 4. Trace bilateral pleural effusions. 5. Bibasilar atelectasis versus infiltrate. 6. Coronary artery atherosclerotic calcifications. 7. Cholecystectomy. 8. Gastric surgical sutures. 9. Bilateral renal cysts, negative for follow-up advised. COMMENTS: Consistent with the [employer]'s Incidental Findings Committee white paper (J Am Homero Radiol 2018): Any incidental renal lesion less than 1 cm or classified as too small to characterize, or any incidental cystic renal lesion characterized as simple-appearing, is likely benign. No follow-up imaging is recommended for these lesions per consensus recommendations based on imaging criteria. Head CT 08/19/23 22:43 IMPRESSION: 1. Negative for intracranial hemorrhage or mass effect. 2. Paranasal sinus opacifications. Laboratory Results WBC 9.63 10^3/uL (3.29-11.43) 08/19/23 20:45 RBC 4.05 10^6/uL (3.85-5.65) 08/19/23 20:45 Hgb 11.90 g/dL (11.27-16.99) 08/19/23 20:45 Hct 36.1 % (36-47) 08/19/23 20:45 MCV 89.1 fl (85-98) 08/19/23 20:45 MCH 29.4 pg (27-33) 08/19/23 20:45 MCHC 33.0 g/dL (30-55) 08/19/23 20:45 RDW 14.7 % (12.1-15.1) 08/19/23 20:45 Plt Count 199 10^3/cmm (157-399) 08/19/23 20:45 MPV 11.1 fL (7.4-10.4) H 08/19/23 20:45 Neut % (Auto) 55.1 % 08/19/23 20:45 Lymph % (Auto) 42.3 % 08/19/23 20:45 Starke % (Auto) 1.8 % 08/19/23 20:45 Eos % (Auto) 0.0 % 08/19/23 20:45 Baso % (Auto) 0.4 % 08/19/23 20:45 Neut # (Auto) 5.31 10^3/uL (1.8-7.7) 08/19/23 20:45 Lymph # (Auto) 4.1 10^3/uL (0.8-4.8) 08/19/23 20:45 Starke # (Auto) 0.2 10^3/uL (0.2-0.9) 08/19/23 20:45 Eos # (Auto) 0.0 10^3/uL (0.0-0.8) 08/19/23 20:45 Baso # (Auto) 0.0 10^3/uL (0.0-0.1) 08/19/23 20:45 Nucleated RBC % (auto) 0 % 08/19/23 20:45 Nucleated RBCs # 0.0 /100WBC 08/19/23 20:45 Sodium 132 mmol/L (136-145) L 08/19/23 20:45 Potassium 3.4 mmol/L (3.5-5.1) L 08/19/23 20:45 Chloride 96 mmol/L (98-107) L 08/19/23 20:45 Carbon Dioxide 26 mmol/L (22-29) 08/19/23 20:45 Anion Gap 13.4 (5-19) 08/19/23 20:45 BUN 13 mg/dL (6-20) 08/19/23 20:45 Creatinine 0.4 mg/dL (0.5-0.9) L 08/19/23 20:45 GFR Calculation 167.0 mL/min (90-130) H 08/19/23 20:45 Glucose 157 mg/dL (65-115) H 08/19/23 20:45 Calculated Osmolality 277 mOsm/kg (285-295) L 08/19/23 20:45 Lactic Acid 1.4 mmol/L (0.5-2.2) 08/19/23 20:45 Calcium 8.2 mg/dL (8.5-10.5) L 08/19/23 20:45 Total Bilirubin 0.4 mg/dL (0.15-1.2) 08/19/23 20:45 AST 105 U/L (0-32) H 08/19/23 20:45 ALT 132 U/L (0-33) H 08/19/23 20:45 Alkaline Phosphatase 613 U/L (35-105) H 08/19/23 20:45 Total Protein 6.2 g/dL (6.6-8.7) L 08/19/23 20:45 Albumin 3.1 g/dL (3.5-5.2) L 08/19/23 20:45 Globulin 3.1 g/dL (1.3-4.6) 08/19/23 20:45 Lipase 11 U/L (13-60) L 08/19/23 20:29 Procalcitonin 0.27 ng/mL (0-0.5) 08/19/23 20:45 Adenovirus (PCR) Not detected (NOT DETECT) 08/19/23 20:32 C. pneumoniae DNA (PCR) Not detected (NOT DETECT) 08/19/23 20:32 Coronavirus 229E (PCR) Not detected (NOT DETECT) 08/19/23 20:32 Human Metapneumovir PCR Not detected (NOT DETECT) 08/19/23 20:32 Influenza A (H1) PCR Not detected (NOT DETECT) 08/19/23 20:32 Influ A (H1/09) PCR Not detected (NOT DETECT) 08/19/23 20:32 Influenza A (H3) PCR Not detected (NOT DETECT) 08/19/23 20:32 Influenza Type A (PCR) Not detected (NOT DETECT) 08/19/23 20:32 Influenza Type B (PCR) Not detected (NOT DETECT) 08/19/23 20:32 M. pneumoniae (PCR) Not detected (NOT DETECT) 08/19/23 20:32 Parainfluenza 1 (PCR) Not detected (NOT DETECT) 08/19/23 20:32 Parainfluenza 2 (PCR) Not detected (NOT DETECT) 08/19/23 20:32 Parainfluenza 3 (PCR) Not detected (NOT DETECT) 08/19/23 20:32 Parainfluenza 4 (PCR) Not detected (NOT DETECT) 08/19/23 20:32 RSV Type A (PCR) Not detected (NOT DETECT) 08/19/23 20:32 RSV Type B (PCR) Not detected (NOT DETECT) 08/19/23 20:32 Entero/Rhino (PCR) Not detected (NOT DETECT) 08/19/23 20:32 SARS-CoV-2 (PCR) Not detected (NOT DETECT) 08/19/23 20:32 All radiology interpretation(s) finalized by discharge EKG Data EKG 1: Interpretation: Twelve-lead EKG obtained at 2012 and reviewed at 2015 demonstrates sinus tachycardia, ventricular rate of 112, IN interval 136, QRS duration 91, QT 295 QTc [address] elevation or depression to demonstrate acute ischemia or infarction at present Discharge Plan Discharge Patient Disposition: Home Clinical Impression: Elevated liver enzymes, Viral syndrome Fever Qualifiers: Fever type: unspecified Qualified Code(s): R50.9 - Fever, unspecified Condition: Stable Prescriptions: No Action aspirin 325 mg tablet 325 mg PO DAILY Rx Instructions: medication on hold as of 12/04/22 celecoxib [Celebrex] 200 mg capsule 200 mg PO BID Rx Instructions: [place] 12[place]04/22 [place] [place] Dexcom G6 Life Enrichment Manager Misc See Rx Instructions .ROUTE .MEDSUPPLY Qty: 1 0RF Rx Instructions: As directed multivitamin Tablet 1 tab PO QAM famotidine 40 mg tablet 40 mg PO BID ascorbic acid (vitamin C) 500 mg tablet 500 mg PO DAILY beano PO cyanocobalamin (vitamin B-12) 1,000 mcg/mL solution IM ONCE Rx Instructions: once a month cholecalciferol (vitamin D3) 1,250 mcg (50,000 unit) capsule PO (DME) Dexcom G6 Transmitter Device See Rx Instructions .ROUTE .MEDSUPPLY Qty: 1 0RF Rx Instructions: As directed [place] [place] Omnipod 5 G6 Intro Kit (Gen 5) Cartridge See Rx Instructions .ROUTE .COMPLEX Qty: 1 0RF Dose Instruction: USE DIRECTED Rx Instructions: USE DIRECTED clopidogrel 75 mg tablet 75 mg PO DAILY Qty: 90 3RF Rx Instructions: medication on hold as of 12/04/22 fenofibrate 160 mg tablet See Rx Instructions .ROUTE .COMPLEX Qty: 90 3RF Dose Instruction: TAKE 1 TABLET BY MOUTH EVERY DAY Rx Instructions: TAKE 1 TABLET BY MOUTH EVERY DAY [place] [place] Omnipod 5 G6 Pods (Gen 5) Cartridge See Rx Instructions .ROUTE .COMPLEX Qty: 10 3RF Dose Instruction: USE DIRECTED CHANGE PODS EVERY 3 DAYS Rx Instructions: USE DIRECTED CHANGE PODS EVERY 3 DAYS Ozempic 1 mg/dose (4 mg/3 mL) pen injector 1 mg SUBCUT Q7D Qty: 3 2RF [place] [place] Dexcom G6 Sensor Device See Rx Instructions .ROUTE .COMPLEX Qty: 6 0RF Dose Instruction: USE DIRECTED Rx Instructions: USE DIRECTED rosuvastatin 20 mg tablet See Rx Instructions .ROUTE .COMPLEX Qty: 100 1RF Dose Instruction: TAKE 1 TABLET BY MOUTH EVERY DAY Rx Instructions: TAKE 1 TABLET BY MOUTH EVERY DAY biotin 800 mcg Tablet 800 mcg PO DAILY Nitrostat 0.4 mg Tablet, Sublingual 0.4 mg SUBLINGUAL Q5M PRN (Reason: Chest Pain) Rx Instructions: do not exceed 3 doses per episode montelukast 10 mg tablet 10 mg PO QPM Flonase 50 mcg/actuation [place],Suspension 2 spray INTRANASAL QAM escitalopram oxalate 20 mg tablet 20 mg PO BEDTIME Vitamin D3 125 mcg (5,000 unit) Tablet 125 mcg PO QAM Discharge Orders: Discharge ED (Routine); Ordered 08/20/23 Ordered By: Corey Jenkins Referrals: Kinza Leggett MD [Primary Care Provider] - 1 week Patient Instructions: Fever - Adult, Viral Syndrome - Adult Activity Restrictions/Additional Instructions: Please follow-up with your family practice physician within the next 7 to 10 days for further evaluation and testing. Please have them repeat your liver function tests as they are elevated here in ER. Thank you for choosing [facility] for your healthcare needs today. Please realize that you were seen in the emergency department and that we are providing you with an emergency medical screening exam and this may not be a complete and all exclusive of all testing and/or medical workup we may need to determine your element or severity of your illness. It is very important that you follow-up as instructed with your primary care provider or specialist for the additional evaluation and to discuss your medical treatment plan. You may return to the emergency department should you have concerns or if your condition changes or worsens in any way. Coding Level of Care Code ED Daily Release And Du[employer] Printer for Chg Fwd Documented by User: Corey Jenkins DO 08/20/23 00:24 HPI - URI/Sore Throat General: Chief Complaint: Upper Respiratory Infection Stated Complaint: Chest Pain Time Seen by Provider: 08/19/23 20:26 [facility] ED PFSH: Medical History Psychiatric care Acquired polycythemia Stenosis of cervical spine with myelopathy Neck pain of over 3 months duration Degeneration of cervical intervertebral disc Cervical spinal stenosis Cervical disc disorder with myelopathy of mid-cervical region Hx of fracture of finger right hand ring finger Encounter for long-term opiate analgesic use Opioid contract exists Polycythemia secondary to smoking Chest pain COPD (chronic obstructive pulmonary disease) Diabetes Obesity Essential hypertension Hyperlipidemia GUDELIA (obstructive sleep apnea) ASHD (arteriosclerotic heart disease) Chronic back pain Surgical History History of carpal tunnel surgery 12/24/19 w/Dr. Redd left wrist History of surgery on arm left arm reconstruction-hx of elbow fx and set wrong so ended up having to have surgery S/P cholecystectomy S/P angioplasty with stent S/P tonsillectomy S/P lumpectomy of breast S/P hernia repair S/P hysterectomy S/P section Family History Father Hypertension CAD (coronary artery disease) Mother Hypertension CAD (coronary artery disease) Alzheimer disease Daughter Diabetes Brother CAD (coronary artery disease) Social History Smoking and tobacco/nicotine status: current every day tobacco/nicotine user Quit status (tobacco/nicotine): has quit using Year quit tobacco: 2019 Second hand smoke exposure: No Alcohol intake: never Substance/Drug Use: never Household members: spouse Marital status: Current occupational status: disabled Course Vital Signs: Vital signs: Vital Signs Temperature 99.1 F 08/19/23 21:41 Pulse Rate 109 H 08/19/23 21:37 Respiratory Rate 16 08/19/23 21:37 Blood Pressure 99/65 08/19/23 21:37 Pulse Oximetry 97 08/19/23 21:37 Oxygen Delivery Me thod Room Air 08/19/23 20:17 MDM - URI/Sore Throat Medical Decision Making Physical exam completed document I did obtain a CBC, CMP, lactic acid, respiratory panel, lipase, chest x-ray, CT head and CT abdomen pelvis. Her AST ALT and alkaline phosphatase were significantly elevated which prompted obtaining the CT scan of her abdomen pelvis. Given the patient's complaints of a throbbing generalized headache I did obtain a CT scan for evaluation. Patient's white blood cell count was normal at 9.63 her lactic acid was normal at 1.4 and procalcitonin was normal at 0.27. I have discussed the patient's case with the on-coming physician <Dr. Jenkins > and they have assumed care of the patient. We have discussed the current lab/radiographic results that have been resulted and the pending tests. Patient transferred over to my care at shift change. Lab work was reviewed as well as chest x-ray and abdomen pelvis CT scan. Discussed these results with the patient about her elevated liver enzymes. Patient is to follow-up with her PCP for further evaluation testing. Lab Data 08/19/23 20:45 08/19/23 20:45 Radiology Impressions Chest X-Ray 08/19/23 20:27 IMPRESSION: No acute findings. Abdomen/Pelvis CT 08/19/23 21:58 IMPRESSION: 1. Prominent fluid in the small bowel without dilation may reflect an enteritis. 2. Lower ventral abdominal wall midline small to moderate fat containing hernia. 3. Hepatomegaly. 4. Trace bilateral pleural effusions. 5. Bibasilar atelectasis versus infiltrate. 6. Coronary artery atherosclerotic calcifications. 7. Cholecystectomy. 8. Gastric surgical sutures. 9. Bilateral renal cysts, negative for follow-up advised. COMMENTS: Consistent with the [employer]'s Incidental Findings Committee white paper (J Am Homero Radiol 2018): Any incidental renal lesion less than 1 cm or classified as too small to characterize, or any incidental cystic renal lesion characterized as simple-appearing, is likely benign. No follow-up imaging is recommended for these lesions per consensus recommendations based on imaging criteria. Head CT 08/19/23 22:43 IMPRESSION: 1. Negative for intracranial hemorrhage or mass effect. 2. Paranasal sinus opacifications. Laboratory Results WBC 9.63 10^3/uL (3.29-11.43) 08/19/23 20:45 RBC 4.05 10^6/uL (3.85-5.65) 08/19/23 20:45 Hgb 11.90 g/dL (11.27-16.99) 08/19/23 20:45 Hct 36.1 % (36-47) 08/19/23 20:45 MCV 89.1 fl (85-98) 08/19/23 20:45 MCH 29.4 pg (27-33) 08/19/23 20:45 MCHC 33.0 g/dL (30-55) 08/19/23 20:45 RDW 14.7 % (12.1-15.1) 08/19/23 20:45 Plt Count 199 10^3/cmm (157-399) 08/19/23 20:45 MPV 11.1 fL (7.4-10.4) H 08/19/23 20:45 Neut % (Auto) 55.1 % 08/19/23 20:45 Lymph % (Auto) 42.3 % 08/19/23 20:45 Starke % (Auto) 1.8 % 08/19/23 20:45 Eos % (Auto) 0.0 % 08/19/23 20:45 Baso % (Auto) 0.4 % 08/19/23 20:45 Neut # (Auto) 5.31 10^3/uL (1.8-7.7) 08/19/23 20:45 Lymph # (Auto) 4.1 10^3/uL (0.8-4.8) 08/19/23 20:45 Starke # (Auto) 0.2 10^3/uL (0.2-0.9) 08/19/23 20:45 Eos # (Auto) 0.0 10^3/uL (0.0-0.8) 08/19/23 20:45 Baso # (Auto) 0.0 10^3/uL (0.0-0.1) 08/19/23 20:45 Nucleated RBC % (auto) 0 % 08/19/23 20:45 Nucleated RBCs # 0.0 /100WBC 08/19/23 20:45 Sodium 132 mmol/L (136-145) L 08/19/23 20:45 Potassium 3.4 mmol/L (3.5-5.1) L 08/19/23 20:45 Chloride 96 mmol/L (98-107) L 08/19/23 20:45 Carbon Dioxide 26 mmol/L (22-29) 08/19/23 20:45 Anion Gap 13.4 (5-19) 08/19/23 20:45 BUN 13 mg/dL (6-20) 08/19/23 20:45 Creatinine 0.4 mg/dL (0.5-0.9) L 08/19/23 20:45 GFR Calculation 167.0 mL/min (90-130) H 08/19/23 20:45 Glucose 157 mg/dL (65-115) H 08/19/23 20:45 Calculated Osmolality 277 mOsm/kg (285-295) L 08/19/23 20:45 Lactic Acid 1.4 mmol/L (0.5-2.2) 08/19/23 20:45 Calcium 8.2 mg/dL (8.5-10.5) L 08/19/23 20:45 Total Bilirubin 0.4 mg/dL (0.15-1.2) 08/19/23 20:45 AST 105 U/L (0-32) H 08/19/23 20:45 ALT 132 U/L (0-33) H 08/19/23 20:45 Alkaline Phosphatase 613 U/L (35-105) H 08/19/23 20:45 Total Protein 6.2 g/dL (6.6-8.7) L 08/19/23 20:45 Albumin 3.1 g/dL (3.5-5.2) L 08/19/23 20:45 Globulin 3.1 g/dL (1.3-4.6) 08/19/23 20:45 Lipase 11 U/L (13-60) L 08/19/23 20:29 Procalcitonin 0.27 ng/mL (0-0.5) 08/19/23 20:45 Adenovirus (PCR) Not detected (NOT DETECT) 08/19/23 20:32 C. pneumoniae DNA (PCR) Not detected (NOT DETECT) 08/19/23 20:32 Coronavirus 229E (PCR) Not detected (NOT DETECT) 08/19/23 20:32 Human Metapneumovir PCR Not detected (NOT DETECT) 08/19/23 20:32 Influenza A (H1) PCR Not detected (NOT DETECT) 08/19/23 20:32 Influ A (H1/09) PCR Not detected (NOT DETECT) 08/19/23 20:32 Influenza A (H3) PCR Not detected (NOT DETECT) 08/19/23 20:32 Influenza Type A (PCR) Not detected (NOT DETECT) 08/19/23 20:32 Influenza Type B (PCR) Not detected (NOT DETECT) 08/19/23 20:32 M. pneumoniae (PCR) Not detected (NOT DETECT) 08/19/23 20:32 Parainfluenza 1 (PCR) Not detected (NOT DETECT) 08/19/23 20:32 Parainfluenza 2 (PCR) Not detected (NOT DETECT) 08/19/23 20:32 Parainfluenza 3 (PCR) Not detected (NOT DETECT) 08/19/23 20:32 Parainfluenza 4 (PCR) Not detected (NOT DETECT) 08/19/23 20:32 RSV Type A (PCR) Not detected (NOT DETECT) 08/19/23 20:32 RSV Type B (PCR) Not detected (NOT DETECT) 08/19/23 20:32 Entero/Rhino (PCR) Not detected (NOT DETECT) 08/19/23 20:32 SARS-CoV-2 (PCR) Not detected (NOT DETECT) 08/19/23 20:32 Discharge Plan Discharge Patient Disposition: Home Clinical Impression: Elevated liver enzymes, Viral syndrome Fever Qualifiers: Fever type: unspecified Qualified Code(s): R50.9 - Fever, unspecified Condition: Stable Prescriptions: No Action aspirin 325 mg tablet 325 mg PO DAILY Rx Instructions: medication on hold as of 12/04/22 celecoxib [Celebrex] 200 mg capsule 200 mg PO BID Rx Instructions: medication on hold as of 12/04/22 (DME) Dexcom G6 Life Enrichment Manager Misc See Rx Instructions .ROUTE .MEDSUPPLY Qty: 1 0RF Rx Instructions: As directed multivitamin Tablet 1 tab PO QAM famotidine 40 mg tablet 40 mg PO BID ascorbic acid (vitamin C) 500 mg tablet 500 mg PO DAILY beano PO cyanocobalamin (vitamin B-12) 1,000 mcg/mL solution IM ONCE Rx Instructions: once a month cholecalciferol (vitamin D3) 1,250 mcg (50,000 unit) capsule PO (DME) Dexcom G6 Transmitter Device See Rx Instructions .ROUTE .MEDSUPPLY Qty: 1 0RF Rx Instructions: As directed (DME) Omnipod 5 G6 Intro Kit (Gen 5) Cartridge See Rx Instructions .ROUTE .COMPLEX Qty: 1 0RF Dose Instruction: USE DIRECTED Rx Instructions: USE DIRECTED clopidogrel 75 mg tablet 75 mg PO DAILY Qty: 90 3RF Rx Instructions: medication on hold as of 12/04/22 fenofibrate 160 mg tablet See Rx Instructions .ROUTE .COMPLEX Qty: 90 3RF Dose Instruction: TAKE 1 TABLET BY MOUTH EVERY DAY Rx Instructions: TAKE 1 TABLET BY MOUTH EVERY DAY (DME) Omnipod 5 G6 Pods (Gen 5) Cartridge See Rx Instructions .ROUTE .COMPLEX Qty: 10 3RF Dose Instruction: USE DIRECTED CHANGE PODS EVERY 3 DAYS Rx Instructions: USE DIRECTED CHANGE PODS EVERY 3 DAYS Ozempic 1 mg/dose (4 mg/3 mL) pen injector 1 mg SUBCUT Q7D Qty: 3 2RF (DME) Dexcom G6 Sensor Device See Rx Instructions .ROUTE .COMPLEX Qty: 6 0RF Dose Instruction: USE DIRECTED Rx Instructions: USE DIRECTED rosuvastatin 20 mg tablet See Rx Instructions .ROUTE .COMPLEX Qty: 100 1RF Dose Instruction: TAKE 1 TABLET BY MOUTH EVERY DAY Rx Instructions: TAKE 1 TABLET BY MOUTH EVERY DAY biotin 800 mcg Tablet 800 mcg PO DAILY Nitrostat 0.4 mg Tablet, Sublingual 0.4 mg SUBLINGUAL Q5M PRN (Reason: Chest Pain) Rx Instructions: do not exceed 3 doses per episode montelukast 10 mg tablet 10 mg PO QPM Flonase 50 mcg/actuation [place],Suspension 2 spray INTRANASAL QAM escitalopram oxalate 20 mg tablet 20 mg PO BEDTIME Vitamin D3 125 mcg (5,000 unit) Tablet 125 mcg PO QAM Discharge Orders: Discharge ED (Routine); Ordered 08/20/23 Ordered By: Corey Jenkins Referrals: Kinza Leggett MD [Primary Care Provider] - 1 week Patient Instructions: Fever - Adult, Viral Syndrome - Adult Activity Restrictions/Additional Instructions: Please follow-up with your family practice physician within the next 7 to 10 days for further evaluation and testing. Please have them repeat your liver function tests as they are elevated here in ER. Thank you for choosing [facility] for your healthcare needs today. Please realize that you were seen in the emergency department and that we are providing you with an emergency medical screening exam and this may not be a complete and all exclusive of all testing and/or medical workup we may need to determine your element or severity of your illness. It is very important that you follow-up as instructed with your primary care provider or specialist for the additional evaluation and to discuss your medical treatment plan. You may return to the emergency department should you have concerns or if your condition changes or worsens in any way. Coding Level of Care Code ED Daily Release And Dupe Printer for Jed Osborn
[2023-08-20 00:31] VITALS: BP 113/67; PULSE 104; RESP 18; O2SAT 95
== END 2023-08-20 00:32 | disposition home or self-care (01) ==
PROVIDERS: Emergency Provider Internal Medicine; PCP Internal Medicine
DX: B34.9 Viral infection, unspecified (principal); R74.8 Abnormal levels of other serum enzymes; Z79.02 Long term (current) use of antithrombotics/antiplatelets; Z79.82 Long term (current) use of aspirin; Z79.85 Long-term (current) use of injectable non-insulin antidiabetic drugs; Z72.0 Tobacco use; J44.9 Chronic obstructive pulmonary disease, unspecified; E11.9 Type 2 diabetes mellitus without complications; I10 Essential (primary) hypertension; E78.5 Hyperlipidemia, unspecified
CPT/HCPCS: 36415; 70450; 71045; 74177; 80053; 83605; 83690; 84145; 85025; 87486; 87581; 87633; 93005; 96361; 96374; 99285; J1885; J7030; Q9967

== ENCOUNTER → 2023-08-29 11:23 | Outpatient (BNVA) | payer MEDICARE, MEDICAID, SELFPAY | PROVIDERS: PCP Internal Medicine; Visit Provider Internal Medicine | DX: E78.5 Hyperlipidemia, unspecified; Z46.81 Encounter for fitting and adjustment of insulin pump; E11.59 Type 2 diabetes mellitus with other circulatory complications; I25.10 Atherosclerotic heart disease of native coronary artery without angina pectoris; E66.01 Morbid (severe) obesity due to excess calories; Z79.4 Long term (current) use of insulin; Z68.27 Body mass index [BMI] 27.0-27.9, adult | CPT/HCPCS: 99214 ==

== ENCOUNTER 2023-09-10 14:07 | Outpatient (CLI) | payer MEDICARE, MEDICAID, SELFPAY ==
--- NOTE | 2023-09-10 14:10 | MM_ITS ---
WS: [id number] DIAGNOSTIC RIGHT DIGITAL TOMOSYNTHESIS MAMMOGRAPHY WITH CAD. HISTORY: New palpable mass RIGHT breast. COMPARISON: 10/26/2022 and 10/26/2021 Technique: CC, MLO and ML views. RIGHT CC and MLO spot compression. Breast composition: There are scattered areas of fibroglandular density. There is a well-circumscribe d nodule with rim calcification corresponding to the palpable marker measuring 10 x 12 mm. This is mo st consistent with benign oil cyst. There are a few other scattered more centrally positioned but sma ller oil cysts. These are new since 11/05/2022. These are benign. MM/[place] [id number] IMPRESSION: BI-RADS: 2-Benign FOLLOW UP: See Report Return to annual screening mammography.
== END 2023-09-10 14:08 | disposition home or self-care (01) ==
LOC: RAD 14:08
PROVIDERS: PCP Internal Medicine; Visit Provider Internal Medicine
DX: N64.59 Other signs and symptoms in breast (principal); N60.01 Solitary cyst of right breast; N60.19 Diffuse cystic mastopathy of unspecified breast; R92.323 Mammographic fibroglandular density, bilateral breasts
CPT/HCPCS: 77061; G0279

== ENCOUNTER → 2023-12-16 11:15 | Outpatient (BNVA) | payer MEDICARE, MEDICAID, SELFPAY | PROVIDERS: PCP Internal Medicine; Visit Provider Internal Medicine | DX: E78.5 Hyperlipidemia, unspecified; Z46.81 Encounter for fitting and adjustment of insulin pump; E11.59 Type 2 diabetes mellitus with other circulatory complications; I25.10 Atherosclerotic heart disease of native coronary artery without angina pectoris; E66.01 Morbid (severe) obesity due to excess calories; Z79.4 Long term (current) use of insulin; Z68.26 Body mass index [BMI] 26.0-26.9, adult | CPT/HCPCS: 99214 ==

== ENCOUNTER → 2023-12-31 11:25 | Outpatient (BNVA) | payer MEDICARE, MEDICAID, SELFPAY | PROVIDERS: PCP Internal Medicine; Visit Provider Internal Medicine | DX: E78.5 Hyperlipidemia, unspecified (principal); E66.01 Morbid (severe) obesity due to excess calories | CPT/HCPCS: 36415; 80053; 82310; 83970 ==

== ENCOUNTER 2024-01-02 08:04 | Oncology outpatient (recurring) (ONCR) | payer MEDICARE, MEDICAID, SELFPAY ==
[2024-01-02 08:33] LABS: Basophils # 0.1 10^3/uL (0.0-0.1); Basophils % 0.7 %; Eosinophils % 0.1 %; Hematocrit 41.2 % (36-47); Lymphocytes # 2.5 10^3/uL (0.8-4.8); Lymphocytes % 37.3 %; Mean Corpuscular HGB Conc 32.5 g/dL (30-55); Mean Corpuscular Hemoglobin 29.3 pg (27-33); Mean Corpuscular Volume 90.2 fl (85-98); Mean Platelet Volume 9.7 fL (7.4-10.4); Monocytes # 0.5 10^3/uL (0.2-0.9); Monocytes % 7.8 %; Neutrophils # 3.61 10^3/uL (1.8-7.7); Nucleated Red Blood Cells % 0 %; Platelet Count 278 10^3/cmm (157-399); Red Blood Count 4.57 10^6/uL (3.85-5.65); Red Cell Distribution Width 13.2 % (12.1-15.1)
[2024-01-02 08:52] LABS: Alanine Aminotransferase 13 U/L (0-33); Albumin Level 4.1 g/dL (3.5-5.2); Alkaline Phosphatase 72 U/L (35-105); Anion Gap 11.7 (5-19); Aspartate Amino Transferase 16 U/L (0-32); Blood Urea Nitrogen 13 mg/dL (6-20); Carbon Dioxide 30 mmol/L (22-29); Chloride 105 mmol/L (98-107); Ferritin 16 ng/mL (15-150); Globulin 2.4 g/dL (1.3-4.6); Glomerular Filtration Rate 128.6 mL/min (90-130); Glucose 124 mg/dL (65-115); Iron 71 ug/dL (37-145); Osmolality Calculated 298 mOsm/kg (285-295); Potassium 3.7 mmol/L (3.5-5.1); Sodium 143 mmol/L (136-145); Total Bilirubin 0.3 mg/dL (0.15-1.2); Total Iron Binding Capacity 393 mcg/dl; Total Protein 6.5 g/dL (6.6-8.7); Unsaturated Iron Binding 322 ug/dL (112-347)
== END 2024-01-20 23:59 | disposition home or self-care (01) ==
PROVIDERS: PCP Internal Medicine; Visit Provider Internal Medicine Medical Oncology
DX: E61.1 Iron deficiency (principal); D75.1 Secondary polycythemia; J44.9 Chronic obstructive pulmonary disease, unspecified
CPT/HCPCS: 36415; 80053; 82728; 83540; 83550; 85025; 99214

== ENCOUNTER 2024-01-02 13:42 | Outpatient (CLI) | payer MEDICARE, MEDICAID, SELFPAY ==
--- NOTE | 2024-01-02 13:45 | US_ITS ---
WS: [id number] THYROID ULTRASOUND HISTORY: GOITER COMPARISON: 07/20/2022 Right lobe: 1.5 cm x 1.3 cm x 4.7 cm (w x ap x l). Volume: 4.3 cm3. Normal size and echotexture. No significant are dominant nodules are present. Left lobe: 1.7 cm x 1.3 cm x 4.9 cm (w x ap x l). Volume: 5.1 cm3. Normal size and echotexture. No significant or dominant nodules are present. Isthmus: 0.4 cm. US/US thyroid [id number] IMPRESSION: Normal thyroid ultrasound.
== END 2024-01-02 13:43 | disposition home or self-care (01) ==
PROVIDERS: PCP Internal Medicine; Visit Provider Internal Medicine
DX: E04.9 Nontoxic goiter, unspecified (principal)
CPT/HCPCS: 76536

== ENCOUNTER 2024-01-07 10:17 | Outpatient (CLI) | payer MEDICARE, MEDICAID, SELFPAY ==
--- NOTE | 2024-01-07 10:19 | CT_ITS ---
WS: [id number] LDCT LUNG CANCER SCREENING HISTORY: NICOTINE DEPENDENCE, CIGARETTES TECHNIQUE: Axial imaging performed from the apices to 1 cm below the costophrenic angles. Coronal and sagittal reformats are submitted with axial MIP series. All CT scans at [facility] use at least one of these dose optimization techniques: automated exposure control; mA and/or kV adjustment per patient size (includes targeted exams where dose is matched to clinical indication); or iterativ e reconstruction. DLP: 67.27 mGy.cm DIvol: Mean CTDIvol: 1.20 (mGy) COMPARISON: 11/27/2019 Diagnostic quality: Satisfactory Lungs: There are a few scattered micronodules. Stable 4 mm nodule RIGHT middle lobe which was probabl y also present on the study of 11/27/2019 with slight increase in size. No additional mass or nodule or endobronchial lesions. No groundglass attenuation. Heart: Normal size heart with no pericardial effusion.. Extensive coronary artery calcification. Other findings: Mild atherosclerosis aorta. Normal size pulmonary artery. Surgical changes are noted at the GE junction. Mild thickening and nodularity of the LEFT adrenal gland. Thoracic spondylosis. P rior cholecystectomy. CT/CT lung screening [id number] IMPRESSION: LUNG-RADS: 2-Benign Appearance or Behavior FOLLOW UP: 12 Month: Continue annual screening with LDCT OTHER FINDINGS (S MODIFIER): None.
== END 2024-01-07 10:18 | disposition home or self-care (01) ==
LOC: RAD 10:17
PROVIDERS: PCP Internal Medicine; Visit Provider Internal Medicine
DX: F17.210 Nicotine dependence, cigarettes, uncomplicated (principal); R91.8 Other nonspecific abnormal finding of lung field; I70.0 Atherosclerosis of aorta; M47.814 Spondylosis without myelopathy or radiculopathy, thoracic region
CPT/HCPCS: 71271

== ENCOUNTER 2024-03-05 10:57 | Oncology outpatient (recurring) (ONCR) | payer MEDICARE, MEDICAID, SELFPAY ==
[2024-03-05 11:32] LABS: Basophils # 0.1 10^3/uL (0.0-0.1); Basophils % 0.6 %; Eosinophils # 0.1 10^3/uL (0.0-0.8); Eosinophils % 0.6 %; Hematocrit 41.8 % (36-47); Lymphocytes # 3.1 10^3/uL (0.8-4.8); Lymphocytes % 37.3 %; Mean Corpuscular HGB Conc 34.2 g/dL (30-55); Mean Corpuscular Hemoglobin 30.6 pg (27-33); Mean Corpuscular Volume 89.3 fl (85-98); Mean Platelet Volume 9.2 fL (7.4-10.4); Monocytes # 0.6 10^3/uL (0.2-0.9); Monocytes % 6.8 %; Neutrophils # 4.46 10^3/uL (1.8-7.7); Neutrophils % 54.6 %; Nucleated Red Blood Cells % 0 %; Platelet Count 294 10^3/cmm (157-399); Red Blood Count 4.68 10^6/uL (3.85-5.65); Red Cell Distribution Width 12.6 % (12.1-15.1); White Blood Count 8.18 10^3/uL (3.29-11.43)
[2024-03-05 11:49] LABS: Alanine Aminotransferase 15 U/L (0-33); Albumin Level 4.1 g/dL (3.5-5.2); Alkaline Phosphatase 66 U/L (35-105); Anion Gap 12.1 (5-19); Aspartate Amino Transferase 20 U/L (0-32); Blood Urea Nitrogen 10 mg/dL (6-20); Calcium 8.4 mg/dL (8.5-10.5); Carbon Dioxide 27 mmol/L (22-29); Chloride 105 mmol/L (98-107); Ferritin 22 ng/mL (15-150); Glomerular Filtration Rate 166.3 mL/min (90-130); Glucose 119 mg/dL (65-115); Iron 92 ug/dL (37-145); Osmolality Calculated 290 mOsm/kg (285-295); Percent Saturation 23.5 % (20-50); Potassium 4.1 mmol/L (3.5-5.1); Sodium 140 mmol/L (136-145); Total Bilirubin 0.2 mg/dL (0.15-1.2); Total Iron Binding Capacity 390 mcg/dl; Total Protein 6.1 g/dL (6.6-8.7); Unsaturated Iron Binding 298 ug/dL (112-347)
== END 2024-03-21 23:59 | disposition home or self-care (01) ==
PROVIDERS: Nurse Practitioner Family; PCP Internal Medicine; Visit Provider Internal Medicine Medical Oncology
DX: E61.1 Iron deficiency (principal); D75.1 Secondary polycythemia; Z87.891 Personal history of nicotine dependence; R10.84 Generalized abdominal pain; I25.10 Atherosclerotic heart disease of native coronary artery without angina pectoris
CPT/HCPCS: 36415; 80053; 82728; 83540; 83550; 85025; 99214

== ENCOUNTER → 2024-03-24 10:51 | Outpatient (BNVA) | payer MEDICARE, MEDICAID, SELFPAY | PROVIDERS: PCP Nurse Practitioner Family; Visit Provider Nurse Practitioner Family | DX: M79.631 Pain in right forearm (principal) | CPT/HCPCS: 73090 ==

== ENCOUNTER 2024-03-25 09:38 | Outpatient (CLI) | payer MEDICARE, MEDICAID, SELFPAY ==
--- NOTE | 2024-03-25 10:00 | USCV_ITS ---
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 Normal resting ABIs bilaterally suggesting no significant arterial obstruction 2. Scattered minimal to moderate plaques bilaterally in the iliac and femoral arteries Dr Sarah Heath MD [facility] (Electronically Signed) Final Date: 25 March 2024 18:25 S
== END 2024-03-25 09:39 | disposition home or self-care (01) ==
PROVIDERS: PCP Internal Medicine; Visit Provider Nurse Practitioner
DX: I25.10 Atherosclerotic heart disease of native coronary artery without angina pectoris (principal); R10.84 Generalized abdominal pain; I70.203 Unspecified atherosclerosis of native arteries of extremities, bilateral legs
CPT/HCPCS: 93925

== ENCOUNTER 2024-03-25 11:20 | Outpatient (CLI) | payer MEDICARE, MEDICAID, SELFPAY ==
--- NOTE | 2024-03-25 11:32 | CT_ITS ---
WS: [email or web address] CTA ABDOMEN TECHNIQUE: Noncontrast plus contrast enhanced CTA of the abdominal aorta with coronal and sagittal re formatted images and additional MIP Images. CLINICAL INFORMATION: POST PRANDIAL ABDOMINAL PAIN/CAD DLP: [address] scans at [facility] use at least one of these dose optimization techniques: automated e xposure control; mA and/or kV adjustment per patient size (includes targeted exams where dose is matc hed to clinical indication); or iterative reconstruction. FINDINGS: Narrowing of the celiac artery origin with poststenotic dilatation. [place] appearance on the sagitt al imaging to the celiac axis. This can be seen with median arcuate ligament syndrome due to celiac c ompression from the diaphragm. Recommend vascular surgery consultation and correlation for postprandi al pain. Normal caliber abdominal aorta. Minimal aortic calcification. Iliac arteries are patent. SMA is paten t. Proximal renal arteries are patent. Normal renal parenchymal enhancement. Evidence of prior gastri c bypass. Prior cholecystectomy. Evidence of prior ventral abdominal and pelvic hernia repair. No her niated bowel. Fat-containing umbilical hernia. This is similar to previous. Bibasilar atelectasis. Normal adrenal glands. Normal renal parenchymal enhancement. No hydronephrosis . Tiny LEFT renal cyst. CT/CT angio abdomen pelvis [id number] IMPRESSION: 1. Narrowing of the celiac origin with a fishhook appearance and poststenotic dilatation compatible with median arcuate ligament syndrome in the appropriate clinical setting. Recommend correlation with postprandial pain and vascular jennifer angelito consultation. 2. Prior gastric bypass. 3. Prior cholecystectomy. 4. Prior ventral hernia repair and . 5. Fat-containing umbilical hernia similar in appearance compared to previous.
[2024-03-25] MEDS: iohexol 350 mg/mL 500 mL Btl (per mL) IV (11:35)
== END 2024-03-25 11:21 | disposition home or self-care (01) ==
LOC: RAD 11:20
PROVIDERS: PCP Nurse Practitioner Family; Visit Provider Nurse Practitioner
DX: I77.4 Celiac artery compression syndrome (principal); R10.84 Generalized abdominal pain; K42.9 Umbilical hernia without obstruction or gangrene; J98.11 Atelectasis; Z90.49 Acquired absence of other specified parts of digestive tract; Z98.84 Bariatric surgery status
CPT/HCPCS: 74174

== ENCOUNTER → 2024-03-31 09:54 | Outpatient (BNVA) | payer MEDICARE, MEDICAID, SELFPAY | PROVIDERS: PCP Internal Medicine; Visit Provider Internal Medicine | DX: E11.59 Type 2 diabetes mellitus with other circulatory complications; E11.649 Type 2 diabetes mellitus with hypoglycemia without coma; E78.5 Hyperlipidemia, unspecified; I25.10 Atherosclerotic heart disease of native coronary artery without angina pectoris; Z79.4 Long term (current) use of insulin | CPT/HCPCS: 99214 ==

== ENCOUNTER → 2024-04-08 13:47 | Outpatient (BNVA) | payer MEDICARE, MEDICAID, SELFPAY | PROVIDERS: PCP Internal Medicine; Visit Provider Specialist | DX: M25.522 Pain in left elbow (principal); S59.902A Unspecified injury of left elbow, initial encounter; W18.39XA Other fall on same level, initial encounter | CPT/HCPCS: 73080 ==

== ENCOUNTER 2024-04-08 15:29 | Outpatient (CLI) | payer MEDICARE, MEDICAID, SELFPAY | END 2024-04-08 15:30 | disposition home or self-care (01) | LOC: SPT 15:30 | PROVIDERS: PCP Internal Medicine; Visit Provider Specialist | DX: Z46.89 Encounter for fitting and adjustment of other specified devices (principal); M25.522 Pain in left elbow; M19.022 Primary osteoarthritis, left elbow | CPT/HCPCS: 97760; L3761 ==

== ENCOUNTER 2024-04-17 07:50 | Oncology outpatient (recurring) (ONCR) | payer MEDICARE, MEDICAID, SELFPAY ==
--- NOTE | 2024-04-17 08:00 | CT_ITS ---
WS: [email or web address] CT LEFT ELBOW, NONCONTRAST HISTORY: pain Technique: All CT scans at [facility] use at least one of these dose optimization techniques: automated exposure control; mA and/or kV adjustment per patient size (includes targeted exams where dose is matched to clinical indication); or iterative reconstruction. DLP: 424.01 mGy.cm COMPARISON: Prior radiograph 04/17/2024 No acute fracture identified. Marked osteophytic ridging around the radial head. Narrowing and osteop hytosis at the medial and lateral elbow joint articulations. No large osteochondral defect identified . Numerous intra-articular bodies are noted. The largest in the olecranon fossa measures 12 x 7 mm. The re are additional numerous intra-articular bodies posteriorly. Additional intra-articular bodies in t he medial and lateral joint spaces. Largest intra-articular body along the lateral joint space is 12 x 8 mm. No joint effusion. CT/CT elbow LT wo con* [id number] IMPRESSION: 1. No acute fracture. 2. Numerous intra-articular bodies as described above. These intra-articular b odies are most prominent in the olecranon fossa and in the medial and lateral j oint spaces of the elbow. 3. No definite effusion is identified by CT. 4. Moderate to severe arthropathy at the elbow joint. Large marginal osteophyt es. Osteophytic ridging around the radial head.
== END 2024-04-21 23:59 | disposition home or self-care (01) ==
PROVIDERS: PCP Internal Medicine; Visit Provider Internal Medicine Medical Oncology
DX: S59.902A Unspecified injury of left elbow, initial encounter (principal); X58.XXXA Exposure to other specified factors, initial encounter; M25.722 Osteophyte, left elbow; M12.9 Arthropathy, unspecified
CPT/HCPCS: 73200

== ENCOUNTER → 2024-05-11 14:18 | Outpatient (BNVA) | payer MEDICARE, MEDICAID, SELFPAY | PROVIDERS: PCP Internal Medicine; Visit Provider Specialist | DX: M19.022 Primary osteoarthritis, left elbow (principal) | CPT/HCPCS: 99214 ==

== ENCOUNTER 2024-06-04 08:25 | Oncology outpatient (recurring) (ONCR) | payer MEDICARE, MEDICAID, SELFPAY ==
[2024-06-04 09:07] LABS: Basophils # 0.1 10^3/uL (0.0-0.1); Basophils % 0.6 %; Eosinophils % 0.1 %; Hematocrit 43.8 % (36-47); Lymphocytes # 1.9 10^3/uL (0.8-4.8); Lymphocytes % 18.6 %; Mean Corpuscular HGB Conc 33.3 g/dL (30-55); Mean Corpuscular Hemoglobin 30.8 pg (27-33); Mean Corpuscular Volume 92.4 fl (85-98); Mean Platelet Volume 9.1 fL (7.4-10.4); Monocytes # 0.8 10^3/uL (0.2-0.9); Neutrophils # 7.22 10^3/uL (1.8-7.7); Neutrophils % 72.5 %; Nucleated Red Blood Cells % 0 %; Platelet Count 258 10^3/cmm (157-399); Red Blood Count 4.74 10^6/uL (3.85-5.65); Red Cell Distribution Width 13.2 % (12.1-15.1); White Blood Count 9.96 10^3/uL (3.29-11.43)
[2024-06-04 09:33] LABS: Alanine Aminotransferase 26 U/L (0-33); Albumin Level 4.1 g/dL (3.5-5.2); Alkaline Phosphatase 118 U/L (35-105); Anion Gap 11.8 (5-19); Aspartate Amino Transferase 25 U/L (0-32); Blood Urea Nitrogen 12 mg/dL (6-20); Calcium 8.8 mg/dL (8.5-10.5); Carbon Dioxide 28 mmol/L (22-29); Chloride 104 mmol/L (98-107); Ferritin 38 ng/mL (15-150); Globulin 2.5 g/dL (1.3-4.6); Glomerular Filtration Rate 166.3 mL/min (90-130); Glucose 120 mg/dL (65-115); Iron 53 ug/dL (37-145); Osmolality Calculated 291 mOsm/kg (285-295); Potassium 3.8 mmol/L (3.5-5.1); Sodium 140 mmol/L (136-145); Total Bilirubin 0.2 mg/dL (0.15-1.2); Total Iron Binding Capacity 405 mcg/dl; Total Protein 6.6 g/dL (6.6-8.7); Unsaturated Iron Binding 352 ug/dL (112-347)
== END 2024-06-19 23:59 | disposition home or self-care (01) ==
LOC: ONCMED 08:26
PROVIDERS: Nurse Practitioner; PCP Internal Medicine; Visit Provider Internal Medicine Medical Oncology
DX: D75.1 Secondary polycythemia (principal); E61.1 Iron deficiency; E11.59 Type 2 diabetes mellitus with other circulatory complications; I25.10 Atherosclerotic heart disease of native coronary artery without angina pectoris
CPT/HCPCS: 36415; 80053; 82728; 83540; 83550; 85025

== ENCOUNTER 2024-06-25 07:10 | Outpatient (CLI) | payer MEDICARE, MEDICAID, SELFPAY ==
--- NOTE | 2024-06-25 07:19 | MR_ITS ---
WS: [email or web address] MRI CERVICAL SPINE NONCONTRAST TECHNIQUE: Sagittal T1, T2 and STIR imaging. Axial T2, gradient, and fiesta imaging. CLINICAL INFORMATION: CERVICAL SPINE STENOSIS COMPARISON: MRI 09/29/2019 FINDINGS: Straightening the normal cervical lordosis. Small disc protrusions at C4-C5 and C5-C6 worse at C5-6. C2-C3: Moderate to advanced LEFT facet arthropathy. Moderate LEFT bony foraminal narrowing progressed compared to previous. LEFT facet synovitis C3-C4: No significant disc bulging. Moderate to advanced LEFT facet arthropathy. Spinal canal and foramen are patent. LEFT facet synovitis is new compared to previous C4-C5: Mild disc bulging with endplate ridging. Mild central canal stenosis. Moderate facet arthropathy. Mild bilateral bony foraminal narrowing. C5-C6: Mild central canal stenosis with small central disc osteophyte protrusion. Mild facet arthropathy. Mild bilateral bony foraminal narrowing. C6-C7: Mild disc osteophyte complex with endplate ridging. Mild LEFT bony foraminal narrowing. C7-T1: Normal. Visualized brain stem structures: Normal. Prevertebral soft tissues: Normal. Small protrusions in the upper thoracic spine at T2-3 and T3-4 with slight contact of the thoracic cord worse at T2-3. MR/MR cervical spin wo con* [id number] IMPRESSION: 1. Mild central canal stenosis due to small central disc protrusions at C4-C5 and C5-C6 worse at C5-C6. This is slightly progressed compared to previous. 2. Progressed moderate LEFT C2-3 bony foraminal narrowing. 3. Moderate to advanced facet arthropathy LEFT C2-3 and LEFT C3-4 with facet s ynovitis likely degenerative or inflammatory. This is new compared to previous. 4. Small protrusions in the upper thoracic spine at T2-3 and T3-4 with slight contact of the thoracic cord worse at T2-3 with mild central canal stenosis. Th is is progressed compared to previous..
== END 2024-06-25 07:11 | disposition home or self-care (01) ==
LOC: RAD 07:11
PROVIDERS: PCP Internal Medicine; Visit Provider Internal Medicine
DX: M48.02 Spinal stenosis, cervical region (principal); M50.221 Other cervical disc displacement at C4-C5 level; M50.222 Other cervical disc displacement at C5-C6 level; M47.892 Other spondylosis, cervical region; M65.88 Other synovitis and tenosynovitis, other site; M51.24 Other intervertebral disc displacement, thoracic region; M48.04 Spinal stenosis, thoracic region; R93.7 Abnormal findings on diagnostic imaging of other parts of musculoskeletal system; M50.31 Other cervical disc degeneration, high cervical region; M50.321 Other cervical disc degeneration at C4-C5 level; M25.78 Osteophyte, vertebrae
CPT/HCPCS: 72141

== ENCOUNTER 2024-08-19 09:05 | Outpatient (CLI) | payer MEDICARE, MEDICAID, SELFPAY ==
[2024-08-19 10:02] LABS: Estmated Average Glucose 134; Hemoglobin A1C 6.3 % (4.0-6.0)
[2024-08-19 10:14] LABS: Alanine Aminotransferase 19 U/L (0-33); Albumin Level 4.3 g/dL (3.5-5.2); Alkaline Phosphatase 88 U/L (35-105); Aspartate Amino Transferase 23 U/L (0-32); Blood Urea Nitrogen 24 mg/dL (6-20); Calcium 9.1 mg/dL (8.5-10.5); Carbon Dioxide 25 mmol/L (22-29); Chloride 105 mmol/L (98-107); Chol HDL Ratio 2.87 mg/dL (0.0-4.40); Cholesterol 129 mg/dL (0-200); Globulin 2.7 g/dL (1.3-4.6); Glomerular Filtration Rate 128.6 mL/min (90-130); Glucose 104 mg/dL (65-115); HDL Cholesterol 45 mg/dL (60-100); Iron 66 ug/dL (37-145); LDL Cholesterol Calculated 62 mg/dL (50-129); LDL HDL Ratio 1.38 RATIO (0.00-3.22); Osmolality Calculated 298 mOsm/kg (285-295); Sodium 142 mmol/L (136-145); Total Bilirubin 0.2 mg/dL (0.15-1.2); Triglycerides 109 mg/dL (0-150)
[2024-08-19 10:21] LABS: Creatinine Urine, Random 106 mg/dL (28-217); Microalbum Creatinine Ratio Ur 19 mg/dL (0-20); Microalbumin Random Urine 2 ug/dL (0-20)
[2024-08-19 10:23] LABS: Calcium 9.2 mg/dL (8.5-10.5)
[2024-08-19 10:30] LABS: Parathyroid Hormone 47.8 pg/mL (15-65)
== END 2024-08-19 09:06 | disposition home or self-care (01) ==
LOC: LAB 09:07
PROVIDERS: Nurse Practitioner; PCP Internal Medicine; Visit Provider Internal Medicine
DX: E11.9 Type 2 diabetes mellitus without complications (principal); D75.1 Secondary polycythemia; E61.1 Iron deficiency; E11.59 Type 2 diabetes mellitus with other circulatory complications; I25.10 Atherosclerotic heart disease of native coronary artery without angina pectoris; E78.5 Hyperlipidemia, unspecified
CPT/HCPCS: 36415; 80053; 80061; 82044; 82310; 83036; 83540; 83970

== ENCOUNTER → 2024-09-04 10:21 | Outpatient (BNVA) | payer MEDICARE, MEDICAID, SELFPAY | PROVIDERS: PCP Internal Medicine; Visit Provider Internal Medicine | DX: E11.9 Type 2 diabetes mellitus without complications (principal); E11.40 Type 2 diabetes mellitus with diabetic neuropathy, unspecified; E78.5 Hyperlipidemia, unspecified; E11.59 Type 2 diabetes mellitus with other circulatory complications; E16.2 Hypoglycemia, unspecified | CPT/HCPCS: 99214 ==

== ENCOUNTER → 2024-09-17 12:26 | Outpatient (BNVA) | payer MEDICARE, MEDICAID, SELFPAY | PROVIDERS: PCP Internal Medicine; Visit Provider Internal Medicine | DX: I25.10 Atherosclerotic heart disease of native coronary artery without angina pectoris (principal); R01.1 Cardiac murmur, unspecified; E11.59 Type 2 diabetes mellitus with other circulatory complications; D75.1 Secondary polycythemia; E78.5 Hyperlipidemia, unspecified; E66.01 Morbid (severe) obesity due to excess calories; M48.02 Spinal stenosis, cervical region; G99.2 Myelopathy in diseases classified elsewhere; I10 Essential (primary) hypertension; G47.33 Obstructive sleep apnea (adult) (pediatric); Z68.28 Body mass index [BMI] 28.0-28.9, adult; F17.200 Nicotine dependence, unspecified, uncomplicated; Z79.4 Long term (current) use of insulin | CPT/HCPCS: 99214 ==

== ENCOUNTER → 2024-10-27 07:59 | Outpatient (BNVA) | payer MEDICARE, MEDICAID, SELFPAY | PROVIDERS: PCP Internal Medicine; Visit Provider Internal Medicine | DX: E16.2 Hypoglycemia, unspecified (principal); E11.59 Type 2 diabetes mellitus with other circulatory complications; I25.10 Atherosclerotic heart disease of native coronary artery without angina pectoris; E78.5 Hyperlipidemia, unspecified; E11.69 Type 2 diabetes mellitus with other specified complication; Z79.4 Long term (current) use of insulin; Z79.85 Long-term (current) use of injectable non-insulin antidiabetic drugs | CPT/HCPCS: 99214 ==

== ENCOUNTER 2024-10-30 08:11 | Oncology outpatient (recurring) (ONCR) | payer MEDICARE, MEDICAID, SELFPAY ==
--- NOTE | 2024-10-30 08:30 | USCV_ITS ---
Emmanuelle Stanford Age: 54 Gender: F : 1970 Exam Date: 10/30/2024 08:54 Ordering Phys: Alf Cronin M.D ([email or web address]) Technologist: Raymond Dietrich Exam [place] [facility] [place] [facility] [place] Indication: murmur BP: 126 / 70 HR: 66 Rhythm: Sinus Technical Quality: Adequate MEASUREMENTS (Male / Female) Normal Values 2D ECHO LV Diastolic Diameter PLAX 4.4 cm 4.2 - 5.9 / 3.9 - 5.3 cm IVS Diastolic Thickness 1.3 cm 0.6 - 1.0 / 0.6 - 0.9 cm IVS Systolic Thickness 1.6 cm LVPW Diastolic Thickness 1.3 cm 0.6 - 1.0 / 0.6 - 0.9 cm LVPW Systolic Thickness 1.5 cm LVOT Diameter 2.1 cm LV Ejection Fraction 2D Teich 60.6 % LV Ejection Fraction MOD 4C 57.1 % LV Ejection Fraction MOD 2C 66.3 % LV Ejection Fraction 2C AL 65.5 % LA Diameter 3.0 cm RA Systolic Volume 4C AL 21.3 ml RA Systolic Volume 4C MOD 20.5 ml LA Sys Volume AL 28.3 cm cubed LA Sys Volume Index AL 16.5 cm cubed/m squared Aorta at Sinotubular Diameter 2.2 cm IVC Diameter 1.4 cm M-MODE LA Ao Ratio MM 1.4 AV Cusp Separation MM 1.3 cm DOPPLER AV Peak Velocity 175.0 cm/s LVOT Peak Velocity 89.0 cm/s AV Area Cont Eq vti 1.7 cm squared AV Area Cont Eq pk 1.7 cm squared MV Peak Velocity 98.0 cm/s MV Area PHT 3.1 cm squared Mitral E to A Ratio 1.0 TV Peak Velocity 228.5 cm/s TR Peak Velocity 266.0 cm/s TR Peak Gradient 28.3 mmHg TR Mean Velocity 215.0 cm/s TR Mean Gradient 19.8 mmHg TR Velocity Time Integral 57.3 cm PV Peak Velocity 84.0 cm/s RV Ejection Time 0.3 s FINDINGS Left Ventricle Left ventricle is normal in size. LV systolic function is normal with EF of 55-60%. No regional wall motion abnormalities are seen. Right Ventricle Normal in size and function. Right Atrium Normal in size Left Atrium Normal in size Mitral Valve Structurally normal mitral valve. Trace mitral regurgitation Aortic Valve Aortic valve is thickened. Mild aortic regurgitation. No significant stenosis. Tricuspid Valve Insufficient TR jet to calculate RVSP. Pulmonic Valve Not well visualized Pericardium Normal Aorta Normal in size IVC Appears to be normal CONCLUSIONS LV systolic function is normal with EF of 55-60%. Trace mitral regurgitation. Mild aortic regurgitation. No comparison studies are available Alf Cronin MD (Electronically Signed) Final Date: 04 November 2024 12:55 S
== END 2024-11-19 23:59 | disposition home or self-care (01) ==
LOC: ONCMED 08:12
PROVIDERS: PCP Internal Medicine; Visit Provider Internal Medicine Medical Oncology
DX: R01.1 Cardiac murmur, unspecified (principal); I35.8 Other nonrheumatic aortic valve disorders; I35.1 Nonrheumatic aortic (valve) insufficiency
CPT/HCPCS: 93306

== ENCOUNTER 2024-12-11 08:27 | Outpatient (CLI) | payer MEDICARE, MEDICAID, SELFPAY ==
--- NOTE | 2024-12-11 08:35 | MM_ITS ---
WS: [email or web address] BILATERAL SCREENING DIGITAL TOMOSYNTHESIS MAMMOGRAM WITH CAD HISTORY: SCREENING COMPARISON: 09/10/2023, 06/04/2023, 11/05/2022 Bilateral CC and MLO views with tomosynthesis and synthetic mammography submitted. Computer aided detection analyzed. Breast composition: There are scattered areas of fibroglandular density. No suspicious masses, microcalcifications or architectural distortion. Biopsy clips in the anterior LEFT breast. No suspicious masses or calcifications. Bilateral oil cysts are reidentified. MM/MM scr BI tomosynthesis [id number] IMPRESSION: BI-RADS: 2 - Benign. FOLLOW UP: 1 Year Follow-up
== END 2024-12-11 08:28 | disposition home or self-care (01) ==
LOC: RAD 08:30
PROVIDERS: PCP Internal Medicine; Visit Provider Internal Medicine
DX: Z12.31 Encounter for screening mammogram for malignant neoplasm of breast (principal); R92.323 Mammographic fibroglandular density, bilateral breasts; Z97.8 Presence of other specified devices; N60.02 Solitary cyst of left breast
CPT/HCPCS: 77063; 77067

== ENCOUNTER → 2025-04-08 08:51 | Outpatient (BNVA) | payer MEDICARE, MEDICAID, SELFPAY | PROVIDERS: PCP Internal Medicine; Visit Provider Internal Medicine Endocrinology, Diabetes & Metabolism | DX: E11.59 Type 2 diabetes mellitus with other circulatory complications (principal); E78.5 Hyperlipidemia, unspecified; I25.10 Atherosclerotic heart disease of native coronary artery without angina pectoris; E16.2 Hypoglycemia, unspecified | CPT/HCPCS: 99214 ==

== ENCOUNTER 2025-04-12 13:46 | Oncology outpatient (recurring) (ONCR) | payer MEDICARE, MEDICAID, SELFPAY ==
[2025-04-12 14:10] VITALS: BP 133/79; PULSE 107; RESP 17; TEMP 36.4; O2SAT 96
[2025-04-12] MEDS: iron sucrose 300 MG in sodium chloride 0.9% (100 ml) 100 ML 200 MG IV (14:30)
[2025-04-12 15:14] VITALS: BP 125/75; PULSE 94; RESP 16; TEMP 36.3; O2SAT 98
== END 2025-04-21 23:59 | disposition home or self-care (01) ==
LOC: ONCMED 13:46
PROVIDERS: PCP Internal Medicine; Visit Provider Internal Medicine Medical Oncology
DX: E61.1 Iron deficiency (principal); Z79.899 Other long term (current) drug therapy
CPT/HCPCS: 96365; J1756; J7050